=== PATIENT | male | born 1965 | race Caucasian/White ===

== ENCOUNTER 2023-09-26 14:19 | Outpatient (CLI) | payer OTHER, SELFPAY ==
--- NOTE | 2023-09-26 15:00 | CRLHL7_ITS ---
For Patients: As a result of the Century Cures Act, medical imaging exams and procedure reports are released immediately into your electronic medical record. You may view this report before your referring provider. If you have questions, please contact your health care provider. Indication: INTRA ABDOMINAL AND PELVIC SWELLING, LEFT GROIN MASS Technique: CT Abdomen/Pelvis w/ 90cc [id number] Please note that all CT scans at this facility use dose modulation, iterative reconstruction, and/or weight-based dosing when appropriate to reduce radiation dose to as low as reasonably achievable. Comparison: None Findings: No pleural effusion. No free intraperitoneal air. Small intrahepatic cyst left hepatic lobe measuring 8 millimeters. Possible faint nodule in the right middle lobe measuring 3 millimeters on the 1st cut. Spleen normal. Incidental splenule. Pancreas is unremarkable. Adrenal glands are normal. Small renal cysts right kidney measuring up to 1.5 cm. No hydronephrosis. Bladder normal. Sigmoid diverticulosis. No diverticulitis. No inflammatory changes. No bowel obstruction or free air. No free fluid or abscess. The appendix is normal. Normal size retroperitoneal and mesenteric lymph nodes. Circumscribed mass in the left inguinal region measuring 5.2 x 3.5 cm. Mildly enlarged left external iliac lymph node measures just under 1 cm. Additional subcentimeter left pelvic sidewall lymph node is present. Degenerative changes lumbar spine. No vertebral body compression fracture or pars defect. Impression: Circumscribed mass within the left inguinal soft tissues measuring 5.2 cm. Ultrasound-guided core needle biopsy recommended. Additional smaller adjacent lymph nodes are present extending along the left external iliac chain and left pelvic sidewall. Please note that all CT scans at this facility use dose modulation, iterative reconstruction, and/or weight-based dosing when appropriate to reduce radiation dose to as low as reasonably achievable. Dictated by Eddi Mcguire MD @ 09/27/2023 2:58:33 PM (Electronically Signed)
== END 2023-09-26 14:20 | disposition home or self-care (01) ==
PROVIDERS: Visit Provider Surgery
DX: R19.09 Other intra-abdominal and pelvic swelling, mass and lump (principal)
CPT/HCPCS: 74177; Q9967

== ENCOUNTER 2023-10-16 08:57 | Outpatient (CLI) | payer OTHER, SELFPAY ==
--- NOTE | 2023-10-16 09:15 | CRLHL7_ITS ---
For Patients: As a result of the Century Cures Act, medical imaging exams and procedure reports are released immediately into your electronic medical record. You may view this report before your referring provider. If you have questions, please contact your health care provider. ULTRASOUND-GUIDED LEFT INGUINAL SOFT TISSUE MASS BIOPSY CLINICAL HISTORY: Left inguinal lump COMPARISON STUDIES: CT 09/26/2023 TECHNIQUE: Real-time ultrasound with image documentation was used for targeting the left inguinal mass. Core biopsy specimens were obtained using an automated gun with a 18-gauge biopsy needle. CONSENT and TIME OUT: The procedure, risks, and alternatives were explained to the patient and a consent was signed. [place]oten Protocol was followed including pre-procedure verification that relevant information/documentation was available, reviewed and properly matched to the patient; consent accurate and complete; and equipment and supplies available. Time Out was conducted just prior to starting procedure to verify the four required elements: patient identity, correct side/site marked (if applicable), procedure, relevant images/results properly labeled and displayed (if applicable). PROCEDURE: The patient was positioned supine on the ultrasound table. The left inguinal region was prepped with ChloraPrep. 7 cc of 1 percent lidocaine used for local anesthesia. Core samples were obtained. The specimens were placed in 10% formalin and sent to the pathology department. Pressure was held on the biopsy site until all bleeding subsided. The skin incision was closed with Steri-Strips. LATERALITY: Left inguinal soft tissues. LESION: Circumscribed hypoechoic mass measuring 5.2 cm. SUSPICION FOR MALIGNANCY: Lymphoma versus granulomatous infection NUMBER OF SAMPLES: 5 IMPRESSION: Ultrasound-guided left inguinal soft tissue mass biopsy. Dictated by Eddi Mcguire MD @ 10/16/2023 11:34:29 AM (Electronically Signed)
== END 2023-10-16 08:58 | disposition home or self-care (01) ==
LOC: US 08:59
PROVIDERS: Visit Provider Surgery
DX: R19.09 Other intra-abdominal and pelvic swelling, mass and lump (principal); C85.15 Unspecified B-cell lymphoma, lymph nodes of inguinal region and lower limb
CPT/HCPCS: 20206; 76942

== ENCOUNTER 2023-10-25 13:58 | Outpatient (CLI) | payer OTHER, SELFPAY | END 2023-10-25 13:59 | disposition home or self-care (01) | PROVIDERS: PCP Nurse Practitioner Family; Visit Provider Nurse Practitioner Family | DX: Z01.818 Encounter for other preprocedural examination (principal) | CPT/HCPCS: 80053; 83615; 85025 ==

== ENCOUNTER 2023-10-25 15:10 | Outpatient (CLI) | payer OTHER, SELFPAY ==
--- NOTE | 2023-10-25 16:00 | CRLHL7_ITS ---
For Patients: As a result of the Century Cures Act, medical imaging exams and procedure reports are released immediately into your electronic medical record. You may view this report before your referring provider. If you have questions, please contact your health care provider. INDICATION: Leg pain and swelling. TECHNIQUE: Ultrasound venous duplex lower right extremity. Compression venous exam was performed using schaefer-scale, color Doppler, and spectral Doppler analysis. COMPARISON: None. FINDINGS: Deep veins: Sonographic imaging demonstrates the right common femoral, deep femoral, superficial femoral, popliteal, posterior tibial, peroneal and the contralateral left common femoral veins to be fully compressible with normal color Doppler blood flow. Superficial veins: Greater saphenous vein is fully compressible. No popliteal cyst. IMPRESSION: Normal right lower extremity venous ultrasound, no sign of deep venous thrombosis. Dictated by Jagjit Moya MD @ 10/25/2023 5:41:45 PM (Electronically Signed)
== END 2023-10-25 15:11 | disposition home or self-care (01) ==
LOC: US 15:11
PROVIDERS: PCP Nurse Practitioner Family; Visit Provider Surgery
DX: M79.604 Pain in right leg (principal); R22.41 Localized swelling, mass and lump, right lower limb
CPT/HCPCS: 80053; 83615; 85025; 93971

== ENCOUNTER 2023-10-28 08:10 | Day surgery (SDC) | payer OTHER, SELFPAY ==
[2023-10-28] MEDS: LACTATED RINGERS 1000 ML 1,000 ML 100 ML IV (08:25)
[2023-10-28 08:29] VITALS: BP 134/96; PULSE 80; RESP 16; TEMP 36.6; BMI 28.0
[2023-10-28] MEDS: SODIUM CHLORIDE 0.9 % (FLUSH) 10 ML SYRINGE IVF (08:45)
--- NOTE | 2023-10-28 10:18 | W.PM.H&PU ---
History & Physical Update History & Physical Update H&P Reviewed and patient assessed: No changes noted
[2023-10-28] MEDS: CEFAZOLIN 2 GM INJ IVP (10:32)
[2023-10-28] MEDS: BUPIVACAINE 0.25% 30 ML 20 ML INJECTION (11:03)
--- NOTE | 2023-10-28 11:52 | PM.GSPRC ---
Operative Note Date of procedure: 10/28/23 Pre-op diagnosis: 1. Enlarged left inguinal lymphadenopathy. 2. 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 Post-op diagnosis: Same Type of Procedure: 1. Excisional biopsy of enlarged left inguinal lymph node 8 x 5 cm. Indications: 58-year-old male presented to clinic with an enlarging left groin mass. He noticed it initially over 6 months ago. He denied pain or discomfort in lump initially. However, with time and during his workup he started to have aching on his left flank. Patient also described discomfort and weird sensation radiating to his anterior thigh when he palpated the lump. On clinical exam in the left inguinal canal there was a 8 x 4 cm firm avoid mass that was not very mobile. This was not reducible and was not likely to be an inguinal hernia. With the patient standing up and doing Valsalva there was no left inguinal hernia palpated through the scrotum. Patient was then referred for CT scan that showed an enlarged left inguinal mass that is most likely a lymph node. This was fairly superficial in the tissues. Mildly enlarged other lymph nodes were noted but those were less than 1 cm. A core needle biopsy was then performed that showed that this lymph node most likely is low-grade B-cell lymphoma. However, pathology did not have enough specimen for additional testing. Excision of biopsy of this lymph node was then recommended. The procedure was discussed in detail. The risks associated procedure including infection, bleeding, seroma, and nerve injury and nerve pain were all discussed with the patient, and he agreed to proceed. Procedure Description: After discussing the risks and benefits of the procedure, the patient signed informed consent.? The operative site was marked and the patient was brought to the operating room and placed on the operating table in supine position.? Care was taken to pad the patient's pressure points.?? The patient was then sedated by anesthesia.?? The operative site was then prepped and draped in the usual sterile fashion.? A time-out was then performed. Local anesthetic was injected at the surgical site. An oblique skin incision was made over the palpable mass over the left inguinal canal. Subcutaneous fat was divided with cautery. Was frequent palpation of the mass soft tissues around the mass were mobilized with cautery. It was difficult to tell an enlarged lymphatic from Radha's fascia, and therefore multiple vascular clips were placed to avoid lymphocele. This lymph node was superficial to the external oblique fascia. Throughout the case hemostasis was achieved with cautery, vascular clips, and Vicryl ties. When the lymph node was removed, it was measuring 8 x 5 cm. The lymph node was split into 2 pieces, 2 3 and 1/3rd and placed in 2 separate jars in saline for immediate delivery to pathology with a director of operations home health. Surgical site was then irrigated with normal saline. Additional local anesthetic was injected at the surgical site. Subcutaneous fat was then reapproximated with interrupted 2-0 Vicryl sutures. The dermis was closed with interrupted 3-0 Vicryl sutures. The skin was closed with a running 4-0 Monocryl stitch. Steri-Strips and sterile pressure dressing were placed over the incision. ? The patient was then woken and transported to the recovery area in stable condition. ? The patient tolerated the procedure well. Findings: Enlarged firm to palpation lymph node 8 x 5 cm. Anesthesia: MAC and local Surgeon: Vianca Jernigan MD Estimated blood loss (mL): 5 Additional Specimen Information: 1. Left inguinal enlarged lymph node divided into 2 parts and placed in 2 separate jars submerged in normal saline. Condition: stable Disposition: same day
[2023-10-28 11:55] VITALS: BP 103/66; PULSE 79; RESP 16; TEMP 37.1; O2SAT 98
[2023-10-28 12:00] VITALS: BP 97/71; PULSE 79; RESP 16; O2SAT 98
--- NOTE | 2023-10-28 12:00 | W.ANESCHARGE ---
Anesthesia Charges Start Date/Time Anesthesia Start Date: 10/28/23 Anesthesia Start Time: 10:16 Stop Date/Time Anesthesia Stop Date: 10/28/23 Anesthesia Stop Time: 11:57
[2023-10-28 12:15] VITALS: BP 116/80; PULSE 67; RESP 16; O2SAT 97
[2023-10-28 12:30] VITALS: BP 127/88; PULSE 68; RESP 16; O2SAT 97
[2023-10-28 12:45] VITALS: BP 125/80; PULSE 66; RESP 16; O2SAT 97
== END 2023-10-28 13:21 | disposition home or self-care (01) ==
PROVIDERS: PCP Nurse Practitioner Family; Visit Provider Surgery
PROC: (CPT 38500; principal; 2023-10-28 10:15)
DX: C85.15 Unspecified B-cell lymphoma, lymph nodes of inguinal region and lower limb (principal)
CPT/HCPCS: 38500; 00400; 81305; 88184; 88185; 88239; 88264; 88271; 88275; 88307; 88341; 88342; 88360; J0665; J0690; J1100; J2405; J2704; J3010; J7120

== ENCOUNTER 2023-11-18 11:16 | Outpatient (CLI) | payer OTHER, SELFPAY ==
--- OUTSIDE RECORDS SUMMARY | 2023-11-18 11:18 | XMS_ITS | Clinical Summary ---
Author Name Unknown Organization [facility] Address [place], [place] [address] Care Team Providers Care Tapper Operator Name Role Phone Pcp, No Primary Care Provider Unavailabl e Allergies Active Allergy Reactions Criticality Noted Date Comments Penicillins *Unknown - Childhood Rxn 10/01/2011 Medications No known medications Active Problems No known active problems Encounters Date Type Department Care Team Description 10/28/2023 Lab Requisition [facility] [phone] Vianca Jernigan MD 10/28/2023 Lab Requisition [facility] [phone] Vianca Jernigan MD 10/16/2023 Lab Requisition [facility] [phone] Vianca Jernigan MD from Last 3 Months Immunizations Name Administration Dates Next Due MMR 11/24/2014 Family History Medical History Relation Name Comments Cancer Father melanoma Hyperlipidemia Mother Relation Name Status Comments Father Mother Social History Tobacco Use Types Packs/Day Years Used Date Smoking Tobacco: Never Smokeless Tobacco: Never Alcohol Use Standard Drinks/Week Comments Not Asked 0 (1 standard drink = 0.6 oz pur e alcohol) Sex and Gender Information Value Date Recorded Sex Assigned at Not on file Gender Identity Not on file Sexual Orientation Not on file Obstetrics History Last Filed Vital Signs Vital Sign Reading Time Taken Comments Blood Pressure 122/82 10/01/2011 8:57 AM ASIC ENGINEER Pulse 82 10/01/2011 8:57 AM ASIC ENGINEER Temperature - - Respiratory Rate - - Oxygen Saturation - - Inhaled Oxygen Concentration - - Weight 73.6 kg (162 lb 3.2 oz) 10/01/2011 8:57 A M ASIC ENGINEER Height 176.5 cm (5' 9.5) 10/01/2011 8:57 AM ASIC ENGINEER Body Mass Index 23.61 10/01/2011 8:57 AM ASIC ENGINEER Plan of Treatment Health Maintenance Due Date Last Done Comments COVID-19 vaccine series (#1) 1966 Tdap 1977 Depression screening for age 12+ 1978 HIV for age 15-65 1981 BMI (ht and wt on same day) for age 18+ 1984 Hepatitis C screening for ag e 18-79 1984 Tetanus booster 1986 Colonoscopy through age 75 2011 Zoster (shingles) series for age 50+ (1 of 2) 2016 Lipids for age 45-75 10/01/2016 10/01/2011, 12/02/2006 Influenza for age 50-64 06/21/2023 Pneumococcal series for age 6-64 Aged Out No longer eligible b ased on patient's age to complete this topic Procedures Procedure Name Priority Date/Time Associated Diagnosis Comments LAB TRACKING EVENT Routine 10/28/2023 11 :34 AM ASIC ENGINEER PATH TISSUE EXAM Routine 10/28/2023 11:3 4 AM ASIC ENGINEER CHROM TECH 2 Routine 10/28/2023 11:34 AM ASIC ENGINEER MYC/IGH/CEP8 Routine 10/28/2023 11:34 AM ASIC ENGINEER CHROM TECH 1 Routine 10/28/2023 11:34 AM ASIC ENGINEER MSO AP SEND-OUT Routine 10/28/2023 11:34 AM ASIC ENGINEER PCB Routine 10/28/2023 11:34 AM ASIC ENGINEER OB Routine 10/28/2023 11:34 AM ASIC ENGINEER MT WETLAB Routine 10/28/2023 11:34 AM ASIC ENGINEER MT/LN CHROM Routine 10/28/2023 11:34 AM ASIC ENGINEER LAB TRACKING EVENT Routine 10/16/2023 10 :30 AM ASIC ENGINEER PATH TISSUE EXAM Routine 10/16/2023 10:3 0 AM ASIC ENGINEER from Last 3 Months Results * MYC/IGH/CEP8 (10/28/2023 11:34 AM ASIC ENGINEER) Other SWAB OF GROIN / Unknown 10/28/2023 11:34 AM ASIC ENGINEER 10/29/2023 11:04 AM ASIC ENGINEER Vianca Jernigan MD [facility] [address] [place] [address], [place] * MT/LN CHROM (10/28/2023 11:34 AM ASIC ENGINEER) Other SWAB OF GROIN / Unknown 10/28/2023 11:34 AM ASIC ENGINEER 10/29/2023 11:04 AM ASIC ENGINEER Vianca Jernigan MD LABORATORY Performing Organization Address City/[facility] Co de Phone Number [facility] [address] [place] [phone], [place] * MT WETLAB (10/28/2023 11:34 AM ASIC ENGINEER) Other [place] [place] / Unknown 10/28/2023 11:34 AM ASIC ENGINEER 10/29/2023 11:04 AM ASIC ENGINEER Vianca Jernigan MD LABORATORY Performing Organization Address [facility] Co de Phone Number [facility] [address] [place] [phone], [place] * PCB (10/28/2023 11:34 AM ASIC ENGINEER) Other SWAB OF GROIN / Unknown 10/28/2023 11:34 AM ASIC ENGINEER 10/29/2023 11:04 AM ASIC ENGINEER Vianca Jernigan MD LABORATORY Performing Organization Address [facility] Co de Phone Number [facility] [address] [place] [phone], [place] * OB (10/28/2023 11:34 AM ASIC ENGINEER) Other SWAB OF GROIN / Unknown 10/28/2023 11:34 AM ASIC ENGINEER 10/29/2023 11:04 AM ASIC ENGINEER Vianca Jernigan MD LABORATORY Performing Organization Address [facility] Co de Phone Number [facility] [address] [place] [address], [place] * CHROM TECH 2 (10/28/2023 11:34 AM ASIC ENGINEER) Other SWAB OF GROIN / Unknown 10/28/2023 11:34 AM ASIC ENGINEER 10/29/2023 11:04 AM ASIC ENGINEER Vianca Jernigan MD LABORATORY Performing Organization Address City/[facility] Co de Phone Number [facility] [employer] [address] [place] [address], [place] * CHROM TECH 1 (10/28/2023 11:34 AM ASIC ENGINEER) Other SWAB OF GROIN / Unknown 10/28/2023 11:34 AM ASIC ENGINEER 10/29/2023 11:04 AM ASIC ENGINEER Vianca Jernigan MD LABORATORY Performing Organization Address City/[facility] Co de Phone Number [facility] [address] [place] [address], [place] * LAB TRACKING EVENT (10/28/2023 11:34 AM ASIC ENGINEER) Only the most recent of2 resultswithin the time period is included. Other (Other) Client Collect / Unknown 10/28/2023 11:34 AM ASIC ENGINEER 10/28/2023 1:03 PM ASIC ENGINEER Vianca Jernigan MD LAB BILL ONLY Performing Organization Address [facility] de Phone Number [facility] [address] [place] [address], [place] * MSO AP SEND-OUT (10/28/2023 11:34 AM ASIC ENGINEER) Other SWAB OF GROIN / Unknown 10/28/2023 11:34 AM ASIC ENGINEER 11/01/2023 9:32 AM ASIC ENGINEER Vianca Jernigan MD LABORATORY Performing Organization Address [facility] Co de Phone Number [facility] [employer] [facility] [address] [place] [address], [place] * PATH TISSUE EXAM (10/28/2023 11:34 AM ASIC ENGINEER) Only the most recent of2 resultswithin the time period is included. Case Report Pathology Report ?Case: [id number] ? Authorizing Provider: ??Vianca Jernigan MD ?Collected: ? 10/28/2023 1134 ? Ordering Location: ? [facility] ?Received: ?10/28/2023 1417 ? Pathologist: ? Dino Rivas, ? MD ? Specimen: ?Groin, Left groin mass ? 11/07/2023 8:30 AM [employer] [facility] Amendment 11/07/2023-The tissue was submitted to [facility] for ancillary testing ([facility]PLFX). Please see diagnosis and comment. 11/07/2023 8:30 AM ASIC ENGINEER [employer] [facility] Final Diagnosis A) LYMPH NODE, LEFT INGUINAL, EXCISIONAL BIOPSY: 1. 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 Cytogenetic chromosome studies pending, appended results to follow 3. MYD88 L265P mutation analysis is NEGATIVE; see attached report for details 4. See comment 11/07/2023 8:30 AM ASIC ENGINEER [employer] Amendment electronically signed by Osmar Pate MD on 11/07/2023 at 8:30 AM Comment The findings are essentially identical to those seen in the recent left inguinal mass needle core biopsy ([id number], 10/16/2023) and appear characteristic of a low-grade B-cell lymphoma with plasmacytic differentiation most compatible with justine marginal zone lymphoma. There is no evidence of large cell transformation. The differential diagnosis also included lymphoplasmacytic lymphoma, which can show considerable morphologic and immunophenotypic overlap with marginal zone lymphoma, but less often involves lymph nodes. Molecular testing for MYD88 L265P mutation was performed at [facility] and is negative. Given that the vast majority of cases of lymphoplasmacytic lymphoma demonstrate a MYD88 mutation, the findings are most consistent with justine marginal zone lymphoma. Clinical correlation is recommended. 11/07/2023 8:30 AM ASIC ENGINEER [employer] Clinical Information The patient is a 58-year-old male with superficial solitary left inguinal mass and recent needle biopsy showing low-grade B-cell lymphoma with features most compatible with marginal zone lymphoma ([id number], 10/16/2023). Excisional biopsy of this mass is performed . 11/07/2023 8:30 AM ASIC ENGINEER [employer] Gross Description A) Received fresh (in 2 containers) labeled with the patient's name and left groin node, are 2 portions of lymph node tissue which reapproximate to measure 7.8 x 5.3 x 3.7 cm in greatest dimension. There is a small amount of associated fibrofatty tissue on the outer surface of the portions of lymph node. Serial sectioning reveals homogeneous fleshy prater cut surfaces throughout. Four unstained touch imprints are made (sent to cytogenetics). Portions of fresh tissue are placed in vials of RPMI fixative and sent to flow cytometry, molecular and cytogenetics (all held). Web Site Project Manager sections are submitted as follows: 1-4. ??Sections of lymph node tissue, B-plus fixative 5-8. ??Sections of lymph node tissue, formalin fixative Time and date in formalin: 1440 on 10/28/2023 TRB 10/28/2023 11/07/2023 8:30 AM [facility] Microscopic Description The final diagnosis is based on microscopic examination of appropriate sections of all specimens. Immunostains are performed on block A3 with the following results in abnormal lymphoid cell infiltrate: CD3: ??Negative ?? CD5: ??Negative CD10: Negative CD20: Strongly positive CD21: Weak variable staining of cells with frequent disrupted [facility] meshworks CD23: Strongly positive CD43: Weak/equivocal BCL1: Negative BCL2: Positive BCL6: Negative (focally highlights residual germinal centers) Ki67: 10-20% (by manual morphometry) 11/07/2023 8:30 AM [facility] [employer] [facility] Flow Cytometry Summary B Cell Leukemia/Lymphoma panel: Interpretation: Flow cytometry discloses a monotypic kappa B-cell cohort positive for CD19, CD20, CD22, CD23, CD38(dim) and CD79b(dim). The B cells are negative for CD5 and CD10. This immunophenotype is consistent with a B-cell lymphoma, but is otherwise nonspecific. Clinical indication for flow cytometry: Characterize B-cell lymphoma. A monotypic B cell cohort is detected that comprises approximately 70.5% of total viable nucleated events as defined by light scatter criteria. Summary of B cell phenotype Brightly positive markers: CD45/CD19 Moderately positive markers: KAPPA/CD20/CD22/CD2 3 Dimly positive markers: CD79b/CD38 Trace positive markers: Negative markers: CD2/CD3/CD103/LAMBD A/CD5/CD10/CD200/CD 43 Quality Assessment Viability (7-AAD): 84% Monotypic B cell events: 6559 Nucleated cells analyzed: 9305 Limit of detection (LOD): 0.2% These results and cytograms have been verified by Dr. Rivas. This test was developed and its performance characteristics verified by [employer]. It has not been cleared or approved by the [place] Food and Drug Administration. This test is used for clinical purposes and should not be regarded as investigational or for research. Immunostains were used on this case in conjunction with flow cytometry in order to address ambiguous or inconclusive findings and/or to provide prognostic information. The results of both modalities were coordinated with H&E findings during diagnostic evaluation. Analytic Flow Tech: Jannette Villalpando, 10/29/2023 12:52 PM Verifying Flow Tech: Coni Fay, 10/29/2023 2:20 PM 11/07/2023 8:30 AM ASIC ENGINEER [facility] Cytogenetics Summary Cytogenetic testing has been ordered and will be reported separately. 11/07/2023 8:30 AM ASIC ENGINEER [facility] Additional Information Interpreted at [facility] - [address], [place] [address] 11/07/2023 8:30 AM ASIC ENGINEER [facility] Other [facility] / Unknown 10/28/2023 11:34 AM ASIC ENGINEER 10/28/2023 2:17 PM ASIC ENGINEER Vianca Jernigan MD PATHOLOGY/CYTOLOGY [facility] [address] [place] [address], [place] from Last 3 Months Care Teams Tapper Operator Relationship Specialty Start Date End Date Pcp, No . PCP - General 05/01/23
--- OUTSIDE RECORDS SUMMARY | 2023-11-18 11:18 | XMS_ITS | Clinical Summary ---
Author Name Unknown Organization [facility] Address [id number], [place] [address] Care Team Providers Care Molten Iron Pourer Name Role Phone Unavailable Primary Care Provider Unavailabl e Source Comments You are receiving this document as you are listed as the primary care provider,follow-up provider, or the patient has been referred to you for consultation.This is in compliance with the Medicare andMedicaid EHR Incentive Program,which states Providers who transition their patient to another setting of careor provider of care or refers their patient to another provider of care shouldprovide summary care record for each transition of care or referral. [facility] Allerg[facility] Active Allergy Reactions Criticality Noted Date Comments Penicillins 06/25/2019 Medications No known medications Social History Tobacco Use Types Packs/Day Years Used Date Smoking Tobacco: Never Assessed Sex and Gender Information Value Date Recorded Sex Assigned at Not on file Gender Identity Not on file Sexual Orientation Not on file Plan of Treatment Health Maintenance Due Date Last Done Comments Colon Cancer Screening Plan Due 1966 Hep C Screening (Preventive Services) 1966 HepB (1) 1966 PSA Screening Discussion 1966 COVID-19 Vaccine (#1) 1966 HIV Screening (Preventive Services) 1982 Adult Preventive Visit 1984 Cholesterol 2001 Zoster/Shingles (1 of 2) 2016 Influenza (#1) 2023 07/04/2020, 07/22, 07/22/2018, Additional history exists DTaP/Tdap/Td (2 - Tdap) 07/22/2028 07/22/2018, 09/04 HepA Aged Out 03/06/2006, 09/20, 09/04/2005 No longer eligible based on patient's age to complete this topic Hib Aged Out No longer eligi ble based on patient's age to complete this topic IPV (Polio) Aged Out No longer eligi ble based on patient's age to complete this topic MCV4 Aged Out No longer eligi ble based on patient's age to complete this topic Pneumococcal Aged Out No longer eligi ble based on patient's age to complete this topic
[2023-11-18 11:35] VITALS: BP 149/92; PULSE 77; RESP 16; O2SAT 100; BMI 26.1
--- NOTE | 2023-11-18 11:48 | W.ANESCHARGE ---
Anesthesia Charges Start Date/Time Anesthesia Start Date: 11/18/23 Anesthesia Start Time: 12:14 Stop Date/Time Anesthesia Stop Date: 11/18/23 Anesthesia Stop Time: 12:31
[2023-11-18 12:32] VITALS: BP 126/78; PULSE 63; RESP 18; O2SAT 97
--- NOTE | 2023-11-18 12:36 | W.ANESCHARGE ---
Anesthesia Charges Start Date/Time Anesthesia Start Date: 11/18/23 Anesthesia Start Time: 12:14 Stop Date/Time Anesthesia Stop Date: 11/18/23 Anesthesia Stop Time: 12:31
[2023-11-18 12:38] VITALS: BP 129/83; PULSE 59; RESP 18; O2SAT 96
[2023-11-18 12:41] LABS: Basophils Absolute Auto 0.03 K/uL (0.00-0.30); Basophils Percent Auto 0.4 % (0.0-3.0); Eosinophils Absolute Auto 0.25 K/uL (0.00-0.50); Eosinophils Percent Auto 3.4 % (0.0-7.0); Hematocrit 44.5 % (37.0-53.0); Hemoglobin* 14.8 gm/dL (13.5-17.5); Immature Granulocytes Abs Auto 0.01 K/uL (0.00-0.30); Immature Granulocytes Pct Auto 0.1 %; Immature Reticulocyte Fraction 7.2 % (2.3-13.4); Lymphocytes Absolute Auto 2.18 K/uL (0.90-2.90); Lymphocytes Percent Auto 29.7 % (20-44); Mean Corpuscular HGB Conc 33 gm/dL (32-36); Mean Corpuscular Hemoglobin 28 pg (26-34); Mean Corpuscular Volume 84 fL (80-100); Monocytes Percent Auto 8.2 % (0.0-11.0); Neutrophils Absolute Auto 4.26 K/uL (1.7-7.0); Neutrophils Percent Auto 58.2 % (42.0-72.0); Platelet Count* 253 K/uL (140-440); Red Blood Count 5.29 m/uL (4.30-5.90); Reticulocyte Hemoglobin Equivi 29.9 pg (29.0-35.0); Reticulocyte Percent 1.2 % (0.5-2.0); Reticulocytes Absolute 0.06 # (0.03-0.08); White Blood Count* 7.33 K/uL (4.50-11.00)
[2023-11-18 12:44] LABS: Slide Review Reflex No
== END 2023-11-18 13:04 | disposition home or self-care (01) ==
PROVIDERS: PCP Nurse Practitioner Family; Visit Provider Internal Medicine Hematology & Oncology
DX: C85.10 Unspecified B-cell lymphoma, unspecified site (principal)
CPT/HCPCS: 01112; 36415; 38222; 85025; 85045; 88184; 88185; 88305; 88311; 88313; 88341; 88342; 88360; J1644; J2001; J2704

== ENCOUNTER 2023-11-21 14:31 | Emergency (ER) | payer OTHER, SELFPAY ==
[2023-11-21 14:36] VITALS: BP 138/94; PULSE 89; RESP 18; TEMP 36.4; O2SAT 100; BMI 26.3
--- NOTE | 2023-11-21 14:45 | ED.ABDPAIN ---
HPI - Abdominal Pain General Time Seen by Provider: 14:48 Date Seen: 11/21/23 Chief Complaint: Abdominal Pain Stated Complaint: Pain in R side groin post biopsy Time Seen by Provider: 11/21/23 14:44 Source: patient and RN notes reviewed Mode of arrival: ambulatory Limitations: no limitations History of Present Illness HPI narrative: Esau is a very pleasant 58-year-old gentleman with recent bone biopsy on SaturdayNovember 18 for B-cell lymphoma who comes to the emergency room today for onset of right lower quadrant pain. Over the past few hours the pain has been steady and he has been unable to find a good position of comfort. He describes the pain so severe that at times he almost felt like he had a delirium. He has not experienced this in the past. No position makes him feel better. The pain does radiate into his groin and to a lesser extent into his testicle. He has not taken anything for pain at this point. He denies fever chills, change in bowel movement, blood in urine or painful urination. The bone biopsy went without incident. He notes that he has no pain in his lower back where the biopsy was done. He did have a lymph node biopsy in his left groin many weeks ago and this has been healing nicely. No drainage from this area. Related Data Previous Rx's Medication Instructions Recorded hydrocodone 5 mg-acetaminophen 325 See Rx Instructions .Route 11/21/23 mg tablet .COMPLEX PRN pain #14 tabs ondansetron 4 mg disintegrating 4 mg PO Q8-12H PRN nausea and 11/21/23 tablet vomiting #10 tabs tamsulosin 0.4 mg capsule (Flomax) 0.4 mg PO DAILY #5 caps 11/21/23 Allergies Allergy/AdvReac Type Severity Reaction Status Date / Time Penicillins Allergy Verified 11/21/23 14:36 Review of Systems Status of ROS Reports: 10 or more systems reviewed and unremarkable except as noted in History and below Const Denies: fever or chills GI Reports: abdominal pain and nausea; Denies: vomiting, diarrhea, constipation or blood in stool Reports: genital pain; Denies: painful urination, urinary frequency, urinary urgency or blood in urine Musculo Denies: back pain PFSH PFSH Surgical History Hx of excision of mass ?Z98.890 - Other specified postprocedural states (ICD-10) History of root canal procedure ?Z98.890 - Other specified postprocedural states (ICD-10) H/O left wrist surgery ?Z98.890 - Other specified postprocedural states (ICD-10) Family History Paternal Grandfather Stroke, Onset Age: 92 Skin cancer Father Skin cancer High blood pressure Atrial fibrillation Social History Narrative: Patient is a professor at [employer]. . No children. No formal exercise. Non smoker. No alcohol. No illicit drugs. Smoking Status: Never smoker How often do you have a drink containing alcohol: never AUDIT-C Alcohol total score: 0 Non-prescribed substance use: denies use Caffeine: Yes Exam Narrative: Exam Narrative: Patient is alert and oriented. He does appear to be in mild distress and is noted to be having a hard time finding a position of comfort. External ears eyes nose clear. Neck is supple without lymphadenopathy. Heart with regular rate and rhythm and lungs are clear bilaterally. Abdomen shows right lower quadrant tenderness. There does appear to be some rebound noted. No pain with straight leg raise tapping of the heel or internal or external rotation of the hip. There is somewhat of a fullness in the right a suprapubic area but no obvious localized bulging to suggest hernia. Examination of the scar on the left groin shows it to be well healed with some residual fullness in the midline. Lower extremities without edema. Const: Vital Signs, click to edit/add: Vital Signs - 24 hr 11/21/23 14:36 11/21/23 17:27 11/21/23 17:30 Temperature 97.6 F 97.6 F Pulse Rate 78 Pulse Rate [Right Pulse Oximeter] 89 89 Respiratory Rate 18 18 14 Blood Pressure 161/103 H Blood Pressure [Ri ght Upper Arm] 138/94 H 138/94 H Pulse Oximetry 100 98 Oxygen Delivery Me thod Room Air Documenting provider has reviewed patient's vital signs: yes Course Course ED Course: Differential diagnosis includes but is not limited to inguinal hernia, torsion, appendicitis, diverticulitis, ureteral colic with nephrolithiasis, will place IV, give morphine 4 mg as well as Zofran 4 mg. 500 mL normal saline. Will check labs to include CBC, comprehensive panel, CRP, urinalysis. This gentleman will likely need CT but at this time will await urinalysis to decide if this will be done with contrast or without. Reevaluation(s) Reevaluation #1: Patient noted only modest improvement with morphine. I would like to avoid Toradol as he has recently had a biopsy and therefore will order Dilaudid 0.5 mg IV. Urinalysis did show hematuria and thus the noncontrast abdominal CT has been ordered. Reevaluation #2: Patient looking much better stating he is feeling much better after Dilaudid. Still awaiting official radiological read but I do know what appears to be a stone in the distal right ureter. I have asked patient to strain urine if he needs to use the restroom while here. Vital Signs Vital signs: Initial Vital Signs Temperature 97.6 F 11/21/23 14:36 Temperature Source Temporal Artery Scan 11/21/23 14:36 Pulse Rate 89 11/21/23 14:36 Pulse Rhythm Regular 11/21/23 14:36 Respiratory Rate 18 11/21/23 14:36 Blood Pressure 138/94 H 11/21/23 14:36 Blood Pressure Mean 108 H 11/21/23 14:36 Blood Pressure Position Semi-Fowlers 11/21/23 14:36 Pulse Oximetry 100 11/21/23 14:36 Oxygen Delivery Method Room Air 11/21/23 14:36 Vital Signs Temperature 97.6 F 11/21/23 14:36 Pulse Rate 89 11/21/23 14:36 Respiratory Rate 18 11/21/23 14:36 Blood Pressure 138/94 H 11/21/23 14:36 Pulse Oximetry 100 11/21/23 14:36 Oxygen Delivery Method Room Air 11/21/23 14:36 Temperature 97.6 F 11/21/23 17:27 Pulse Rate 78 11/21/23 17:30 Respiratory Rate 14 11/21/23 17:30 Blood Pressure 161/103 H 11/21/23 17:30 Pulse Oximetry 98 11/21/23 17:30 Oxygen Delivery Method Room Air 11/21/23 14:36 Medications Administered Medications: Discontinued Medications Generic Name Dose Route Start Last Admin Trade Name Freq PRN Reason Stop Dose Admin Hydromorphone HCl 0.5 mg 11/21/23 15:38 11/21/23 15:52 Hydromorphone 0.5 Mg/0.5 Ml Inj IVP 11/21/23 15:39 0.5 mg ONCE ONE Administration Sodium Chloride 500 mls @ 500 mls/hr 11/21/23 14:57 11/21/23 15:03 0.9 % Sodium Chloride 500 Ml IV 11/21/23 15:56 500 mls/hr .Q1H ONE Administration Morphine Sulfate 4 mg 11/21/23 14:57 11/21/23 15:05 Morphine 4 Mg/Ml Inj IVP 11/21/23 14:58 4 mg ONCE ONE Administration Ondansetron HCl 4 mg 11/21/23 14:57 11/21/23 15:05 Ondansetron 2 Mg/Ml Inj IVP 11/21/23 14:58 4 mg ONCE ONE Administration MDM - Abdominal Pain MDM Narrative Medical decision making narrative: 1. Ureteral colic secondary to nephrolithiasis- Patient noted to have a 3 mm stone in the proximal ureter. This is causing mild hydronephrosis. Here received morphine4 mg and then Dilaudid 0.5 mg with pain relief. Patient will be sent home with [place] 5/325 1-2 tabs p.o. q.4-6 hours p.r.n.. Zofran as needed for nausea.Will also give 1st dose of Flomax here in the emergency room and encourage good fluids. Will have patient strain his urine. If he notes this stone this may be return to his primary clinic for analysis. If he has ongoing pain he will need to follow-up at the clinic for failure to pass stone and possibly see Urology. Patient will need to return to the ER for fever, vomiting, worsening symptoms. 2. B-cell lymphoma -status post biopsy. Biopsy site appears to be healing. 3. Disposition -home at this time. Return as needed. Medical Records Attestation: I reviewed the patient's medical records. Lab Data Attestation: I reviewed the patient's lab results. Labs: Lab Results 11/21/23 11/21/23 Range/Units 15:00 15:05 WBC 13.47 H (4.50-11.00) K/uL RBC 5.73 (4.30-5.90) m/uL Hgb 15.9 (13.5-17.5) gm/dL Hct 48.7 (37.0-53.0) % MCV 85 (80-100) fL MCH 28 (26-34) pg MCHC 33 (32-36) gm/dL RDW Coeff of Pravin 13.3 (11.5-15.5) % Plt Count 299 (140-440) K/uL Neut % (Auto) 86.2 H (42.0-72.0) % Lymph % (Auto) 9.0 L (20-44) % [place] % (Auto) 4.1 (0.0-11.0) % Eos % (Auto) 0.2 (0.0-7.0) % Baso % (Auto) 0.2 (0.0-3.0) % Neut # (Auto) 11.60 H (1.7-7.0) K/uL Lymph # (Auto) 1.20 (0.90-2.90) K/uL [place] # (Auto) 0.60 (0.00-0.90) K/UL Eos # (Auto) 0.00 (0.00-0.50) K/uL Baso # (Auto) 0.00 (0.00-0.30) K/uL Abs Immat Gran (auto) 0.00 (0.00-0.30) K/uL Imm/Tot Granulo (auto) 0.3 % Sodium 140 (135-149) mmol/L Potassium 4.3 (3.6-5.1) mmol/L Chloride 103 (96-114) mmol/L Carbon Dioxide 24 (20-32) mmol/L Anion Gap 13 (7-15) mEq/L BUN 16 (7-30) mg/dL Creatinine 1.0 (0.5-1.5) mg/dL Estimated Creat Clear 81.50 Estimated GFR 88 ml/min Glucose 128 H (60-115) mg/dL Calcium 9.5 (8.4-10.6) mg/dL Total Bilirubin 1.0 (0.1-1.5) mg/dL AST 39 H (12-35) U/L ALT 39 (4-50) U/L Alkaline Phosphatase 104 (40-150) U/L C-Reactive Protein 0.6 (0.5-1.0) mg/dL Total Protein 8.0 (6.0-8.3) g/dL Albumin 5.1 H (3.3-5.0) g/dL Urine Color Yellow (Yellow) Urine Appearance Cloudy A (Clear) Urine pH 5.5 (5.0-8.5) Ur Specific [place] 1.020 (1.000-1.030) Urine Protein Negative (Negative) Urine Glucose (UA) Negative (Negative) Urine Ketones Negative (Negative) Urine Blood 3+ A (Negative) Urine Nitrite Negative (Negative) Urine Bilirubin Negative (Negative) Urine Urobilinogen 0.2 (0.2-1.0) Ur Leukocyte Esterase Negative (Negative) Urine RBC 50-100 A (0-2) Urine WBC 0-2 (0-5) Ur Squamous Epith Cells None (None-Few) Urine Bacteria None (None) Imaging Data CT scan - abdomen: Attestation: I have reviewed the pertinent imaging results. My impression: By my read there appears to be a 3 mm stone in the distal right ureter. Mild hydronephrosis is noted on CT. Radiologist's impression: Lower chest: Unremarkable. Liver: Normal in size and attenuation. No suspicious masses. Gallbladder and bile ducts: No stones or inflammation. No biliary dilatation. Pancreas: Unremarkable. No mass or inflammation. Spleen: Normal in size. No masses. Adrenal glands: Normal in size. No nodules. Kidneys: A 3 mm stone in the proximal right ureter is causing mild hydronephrosis. No other stones. GI tract: Unremarkable. Normal in caliber. No sign of mass or inflammation. Normal appendix. Vasculature: Abdominal aorta is normal in caliber. Lymph nodes: No lymphadenopathy. Peritoneum/Abdominal Wall: Unremarkable. No sign of mass or infiltration. No free air or significant free fluid. Pelvis: Surgical clips surrounding an oval-shaped soft tissue mass in the left inguinal region. Pelvic structures otherwise unremarkable. Bones: Unremarkable for age. IMPRESSION: 3 mm stone in the proximal right ureter causing mild hydronephrosis. Discharge Plan Discharge Clinical Impression: Colic, ureteral, Kidney stone Patient Disposition: Home, Self-Care Condition: Improved Additional Instructions: You have a 3 mm kidney stone which stands a great chance of passing on its own. I would like you to strain your urine and if you should note a small stone pass you can take this to your primary doctor for analysis. There are no other kidney stones in the kidneys noted on the CT. There are some stones that you can prevent. Overall the prevention is actually good hydration. Zofran: This is an anti nausea medication that you should take if your feeling nauseated. Try to stay as hydrated as possible. [place]: This is a pain medication which is a combination of Tylenol and a narcotic called hydrocodone. Other names for this medication are Vicodin and Lortab. You may use this medication if needed for discomfort. Unfortunately, narcotics do cause constipation and so I would suggest starting on a stool softener such as Colace. Flomax: Flomax is a medication that relaxes smooth muscle -what your ureter is made of. The thought is if we can relax the ureter the stone will pass sooner. Take this medication daily as long as you are experiencing pain from the kidney stone. It is hard to say what type of time frame we are looking at for the passing of the stone. Some stones pass quickly and this could be gone in the next 12 hours, some stones last days and occasionally last more than a week. Given the size at 3 mm I suspect this stone will pass in the next 48 hours. If you are still experiencing discomfort on Saturday please follow-up at your clinic as you may need to see the urologist for stone removal. If you started experiencing continued vomiting in spite of Zofran use, fever, worsening symptoms please return to the emergency room for further evaluation. Prescriptions: New tamsulosin [Flomax] 0.4 mg capsule 0.4 mg PO DAILY Qty: 5 0RF hydrocodone-acetaminophen 5-325 mg tablet See Rx Instructions .ROUTE .COMPLEX PRN (Reason: pain) Qty: 14 0RF Rx Instructions: 1-2 tabs every 4-6 hours as needed for discomfort. ondansetron 4 mg tablet,disintegrating 4 mg PO Q8-12H PRN (Reason: nausea and vomiting) Qty: 10 0RF Follow Up/Referrals: Desiree Chacko APRN, CLERICAL PROOFREADER [Nurse Practitioner] - Stand Alone Forms: [facility] Inst[facility]
[2023-11-21] MEDS: 0.9 % SODIUM CHLORIDE 500 ML 500 ML IV (15:03)
[2023-11-21 15:05] LABS: Appearance Urine Cloudy (Clear); Bilirubin Urine Negative (Negative); Blood Urine 3+ (Negative); Color Urine Yellow (Yellow); Glucose Urine Negative (Negative); Ketones Urine Negative (Negative); Leukocyte Esterase Urine Negative (Negative); Nitrite Urine Negative (Negative); Protein Urine Negative (Negative); Urobilinogen Urine 0.2 (0.2-1.0); pH Urine 5.5 (5.0-8.5)
[2023-11-21] MEDS: ONDANSETRON 2 MG/ML inj 4 MG IVP (15:05)
[2023-11-21] MEDS: MORPHINE 4 MG/ML INJ IVP (15:05)
[2023-11-21 15:14] LABS: Basophils Percent Auto 0.2 % (0.0-3.0); Eosinophils Percent Auto 0.2 % (0.0-7.0); Hematocrit 48.7 % (37.0-53.0); Hemoglobin* 15.9 gm/dL (13.5-17.5); Immature Granulocytes Pct Auto 0.3 %; Mean Corpuscular HGB Conc 33 gm/dL (32-36); Mean Corpuscular Hemoglobin 28 pg (26-34); Mean Corpuscular Volume 85 fL (80-100); Monocytes Percent Auto 4.1 % (0.0-11.0); Neutrophils Percent Auto 86.2 % (42.0-72.0); Platelet Count* 299 K/uL (140-440); RDW Coefficient of Variation % 13.3 % (11.5-15.5); Red Blood Count 5.73 m/uL (4.30-5.90); White Blood Count* 13.47 K/uL (4.50-11.00)
--- OUTSIDE RECORDS SUMMARY | 2023-11-21 15:16 | XMS_ITS | Clinical Summary ---
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, No Primary Care Provider Unavailabl e Allergies Active Allergy Reactions Criticality Noted Date Comments Penicillins *Unknown - Childhood Rxn 10/01/2011 Medications No known medications Active Problems No known active problems Encounters Date Type Department Care Team Description 11/18/2023 Lab Requisition [facility] [phone] Danielle Sanchez MD 10/28/2023 Lab Requisition [facility] [phone] Vianca Jernigan MD 10/28/2023 Lab Requisition [facility] [phone] Vianca Jernigan MD 10/16/2023 Lab Requisition [facility] [phone] Vianca Jernigan MD from Last 3 Months [...] Comments Blood Pressure 122/82 10/01/2011 8:57 AM TECHNICAL SALES DIRECTOR Pulse 82 10/01/2011 8:57 AM TECHNICAL SALES DIRECTOR Temperature - - Respiratory Rate - - Oxygen Saturation - - Inhaled Oxygen Concentration - - Weight 73.6 kg (162 lb 3.2 oz) 10/01/2011 8:57 A M TECHNICAL SALES DIRECTOR Height 176.5 cm (5' 9.5) 10/01/2011 8:57 AM TECHNICAL SALES DIRECTOR Body Mass Index 23.61 10/01/2011 8:57 AM TECHNICAL SALES DIRECTOR Plan of Treatment Health Maintenance Due Date [...] Procedure Name Priority Date/Time Associated Diagnosis Comments BONE MARROW STUDY Routine 11/18/2023 12: 15 PM TECHNICAL SALES DIRECTOR BONE MARROW DIFFERENTIAL Routine 11/18/2023 12:15 PM TECHNICAL SALES DIRECTOR LAB TRACKING EVENT Routine 10/28/2023 11 :34 AM TECHNICAL SALES DIRECTOR PATH TISSUE EXAM Routine 10/28/2023 11:3 4 AM TECHNICAL SALES DIRECTOR CHROM TECH 2 Routine 10/28/2023 11:34 AM TECHNICAL SALES DIRECTOR MYC/IGH/CEP8 Routine 10/28/2023 11:34 AM TECHNICAL SALES DIRECTOR CHROM TECH 1 Routine 10/28/2023 11:34 AM TECHNICAL SALES DIRECTOR MSO AP SEND-OUT Routine 10/28/2023 11:34 AM TECHNICAL SALES DIRECTOR PCB Routine 10/28/2023 11:34 AM TECHNICAL SALES DIRECTOR OB Routine 10/28/2023 11:34 AM TECHNICAL SALES DIRECTOR MT WETLAB Routine 10/28/2023 11:34 AM TECHNICAL SALES DIRECTOR MT/LN CHROM Routine 10/28/2023 11:34 AM TECHNICAL SALES DIRECTOR LAB TRACKING EVENT Routine 10/16/2023 10 :30 AM TECHNICAL SALES DIRECTOR PATH TISSUE EXAM Routine 10/16/2023 10:3 0 AM TECHNICAL SALES DIRECTOR from Last 3 Months Results * BONE MARROW DIFFERENTIAL (11/18/2023 12:15 PM TECHNICAL SALES DIRECTOR) Bone Marrow (Bone Marrow Aspirate) 11/18/2023 12:15 PM TECHNICAL SALES DIRECTOR 11/19/2023 8:08 AM TECHNICAL SALES DIRECTOR Danielle Sanchez MD LABORATORY [facility]AL [facility]ORAT[facility] [address] [place] [address], * BONE MARROW STUDY (11/18/2023 12:15 PM TECHNICAL SALES DIRECTOR) Case Report Bone Marrow Pathology Report ?Case: [id number] ? Authorizing Provider: ??Danielle Sanchez MD ?Collected: ? 11/18/2023 1215 ? Ordering Location: ? [facility] ?Received: ?11/18/20232048 ? Pathologist: ? Cecelia Reyes MD ? Specimens: ?? A) - Bone Marrow Aspirate, right ? B) - Bone Marrow Aspirate (Heparinized), right ? C) - Bone Marrow Core Biopsy, right ? D) - Peripheral Blood ? 11/20/2023 4:38 PM TECHNICAL SALES DIRECTOR [facility] LABORAT[facility]-C ENTRAL LABORATORY Final Diagnosis BONE MARROW: 1. ??Negative for lymphoma 2. ??Normocellular bone marrow for age (50-60% cellular) with trilineage hematopoiesis 3. ??Adequate storage iron; adequate sideroblastic iron 4. ??Ancillary studies: ?a. ??Cytogenetics: Not performed ?b. 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 A staging bone marrow biopsy is performed. 11/20/2023 4:38 PM [facility]-C ENTRAL LABORATORY PROCEDURE A RIGHT lateral bone marrow biopsy and unilateral aspiration procedure is performed at [facility] on 11/18/23. ARTURO Sandoval performed the procedure using an 8 gauge manual needle. The ordering physician is Dr. Danielle Sanchez . The specimen is inked black. EKW 11/19/2023 ? 11/20/2023 4:38 PM TECHNICAL SALES DIRECTOR [facility] LABORATORY-C ENTRAL LABORATORY CBC and Differential HEMATOLOGY PARAMETERS Tested at: ??Central Laboratory ? RESULTS ??EXPECTED VALUES WBC: ? 7.3 ?4.5-25f6873/cum m ? RBC: ? 5.29 ? 4.30-5.90 mil/cumm HGB: ? 14.8 ? 13.5-17.5 gm/di ? HCT: ? 44.5 ? 37-53% ? MCV: ? 84.1 ? 80-100 fl ? NORMOCYTIC MCH: ? 28.0 ? 26-34 pg ? MCHC: ?33.3 ? 32-36 gm/dl ? NORMOCHROMIC RDW: ? 13.0 ? 11.5-15.5% ? PLT: ? 253 ?140-067a3675/uL ? Retic: ?? 1.22 ? 0.5-1.5% ? Differential ?Tested at: ??Central ?Absolute (%) ?Expected (%) ?(x10*9/L) ? (x10*9/L) Neutrophils: ?4.26 (58.1) ? 1.7-7.0 (42-72%) ? Lymphocytes: ?2.18 (29.7) ? 0.9-2.9 (20-44%) ?? Monocytes: ?0.60 (8.2) ? <0.9 (0-11%) ? Eosinophils: ?0.25 (3.4) ? <0.5 (0-2%) ? Basophils: ?0.03 (.4) ?<0.3 (<3.0%) ? Imm Grans: ?0.01 (.1) ?<0.3 (0-3%) ? (Metas, Myelos,Pros) 11/20/2023 4:38 PM TECHNICAL SALES DIRECTOR [facility] LABORAT[facility]-C ENTRAL LABORATORY Bone Marrow Differential Blasts: ?1.0 ? 0.2-1.5% ? Neutrophils & precursors: ??61.4 ?58.0-65.0% ? Eosinophils & precursors: ??4.2 ? 0.2-5.3% ? Basophils & precursors: ?0.4 ? 0.0-1.0% ? Erythroid precursors: ?15.8 ?18.0-24.0% ?DECREASED Lymphocytes: ? 11.0 ? 3.0-24.0% ? Monocytes: ? 5.8 ? 0.7-2.8% ?ELEVATED Plasma cells: ?0.4 ? 0.1-1.5% ? M:E Ratio: ? 61 : 16 11/20/2023 4:38 PM [facility]-C ENTRMS LABORATORY Microscopic Description SPECIMENS EXAMINED: Peripheral blood Aspirate direct and concentrate smears: ??Adequate Particle crush smears Touch imprints Clot section Bone core trephine sample (decalcified): ??Adequate, 1.7 cm Bone core and clot section color: Black PERIPHERAL BLOOD: No morphologic abnormalities. BONE MARROW ASPIRATE: Hematopoiesis: Normal trilineage hematopoiesis Lymphocytes: ?? Normal, not increased Plasma cells: ??Normal BONE MARROW CORE AND CLOT SECTION: Hematopoiesis: Normal trilineage hematopoiesis Lymphocytes: ?? Normal Plasma cells: ??Normal IRON STAINS (performed on clot sections, particle crush smears, concentrate smears, and F-PV slides): Storage iron, sideroblastic iron and ring sideroblasts evaluated; results included in diagnosis. 11/20/2023 4:38 PM [facility] Flow Cytometry Summary B Cell Screen panel: Interpretation: No monotypic B lymphocytes are detected. Clinical indication for flow cytometry: To evaluate for light chain restriction among B cells. Percent of Lymphs B cells: 5.7% T cells: 90.1% CD19+/[place]: 3.4% CD19+/Lambda: 2.2% [place]:Lambda ratio: 1.5 B lymphocytes in this analysis demonstrate normal qualitative expression of the following antigens: CD3, CD5, CD10, CD19, CD20, CD45, and [place] and Lambda surface light chains. Quality Assessment Viability (7-AAD): 83% Polytypic B cell events: 52 Nucleated cells analyzed: 10390 Limit of detection (LOD): 0.2% These results and cytograms have been verified by Dr. Reyes. This test was developed and its performance characteristics verified by [facility]. It has not been cleared or approved by the [place] Food and Drug Administration. This test is used for clinical purposes and should not be regarded as investigational or for research. Immunostains may have been used on this case in conjunction with flow cytometry in order to address ambiguous or inconclusive findings and/or to provide prognostic information. In the event immunostains were performed, results of both modalities were coordinated with H&E findings during diagnostic evaluation. Analytic Flow Tech: Kajal Lei, 11/19/2023 12:20 PM Verifying Flow Tech: Coni Fay, 11/19/2023 1:15 PM 11/20/2023 4:38 PM TECHNICAL SALES DIRECTOR [facility] LABORATORY- ENTRMS LABORATORY Other Testing Immunostains were performed on the bone core biopsy. CD3 (T cell marker): ??appropriate in number and distribution CD20 (B cell marker): Not increased CD138 (plasma cell marker): Not increased 11/20/2023 4:38 PM TECHNICAL SALES DIRECTOR [facility]- ENTRMS LABORATORY Additional Information Interpreted at [facility] Central Laboratory - [address] [facility] [address], [place] [address] 11/20/2023 4:38 PM TECHNICAL SALES DIRECTOR [facility]- ENTRAL LABORATORY Bone Marrow (Bone Marrow Aspirate) 11/18/2023 12:15 PM TECHNICAL SALES DIRECTOR 11/18/2023 8:49 PM TECHNICAL SALES DIRECTOR Bone marrow specimen (specimen) (Bone Marrow Aspirate (Heparinized)) 11/18/2023 12:15 PM TECHNICAL SALES DIRECTOR 11/18/2023 8:49 PM TECHNICAL SALES DIRECTOR Bone marrow specimen (specimen) (Bone Marrow Core Biopsy) 11/18/2023 12:15 PM TECHNICAL SALES DIRECTOR 11/18/2023 8:49 PM TECHNICAL SALES DIRECTOR Bone marrow specimen (specimen) (Peripheral Blood) 11/18/2023 12:15 PM TECHNICAL SALES DIRECTOR 11/18/2023 8:49 PM TECHNICAL SALES DIRECTOR Danielle Sanchez MD LABORATORY [facility] [address] [place] [address], [place] * MYC/IGH/CEP8 (10/28/2023 11:34 AM TECHNICAL SALES DIRECTOR) Other [facility] / Unknown 10/28/2023 11:34 AM TECHNICAL SALES DIRECTOR 10/29/2023 11:04 AM TECHNICAL SALES DIRECTOR Vianca Jernigan MD [facility] [address] [place] [address], [place] * MT/LN CHROM (10/28/2023 11:34 AM TECHNICAL SALES DIRECTOR) Other [facility] [employer] [place] / Unknown 10/28/2023 11:34 AM TECHNICAL SALES DIRECTOR 10/29/2023 11:04 AM TECHNICAL SALES DIRECTOR Vianca Jernigan MD LABORATORY Performing Organization Address City/[facility] Co de Phone Number [facility] [address] [place] [id number], [place] * MT WETLAB (10/28/2023 11:34 AM TECHNICAL SALES DIRECTOR) Other [facility] [place] / Unknown 10/28/2023 11:34 AM TECHNICAL SALES DIRECTOR 10/29/2023 11:04 AM TECHNICAL SALES DIRECTOR Vianca Jernigan MD LABORATORY Performing Organization Address City/[facility] Co de Phone Number [facility] [address] [place] [phone], [place] * PCB (10/28/2023 11:34 AM TECHNICAL SALES DIRECTOR) Other [facility] [place] / Unknown 10/28/2023 11:34 AM TECHNICAL SALES DIRECTOR 10/29/2023 11:04 AM TECHNICAL SALES DIRECTOR Vianca Jernigan MD LABORATORY Performing Organization Address [facility] Co de Phone Number [email or web address] LABORATORY [address] [place] [address], [place] * OB (10/28/2023 11:34 AM TECHNICAL SALES DIRECTOR) Other [facility] [place] / Unknown 10/28/2023 11:34 AM TECHNICAL SALES DIRECTOR 10/29/2023 11:04 AM TECHNICAL SALES DIRECTOR Vianca Jernigan MD LABORATORY Performing Organization Address City/[facility] Co de Phone Number [facility] [address] [place] [address], [place] * CHROM TECH 2 (10/28/2023 11:34 AM TECHNICAL SALES DIRECTOR) Other [facility] [place] / Unknown 10/28/2023 11:34 AM TECHNICAL SALES DIRECTOR 10/29/2023 11:04 AM TECHNICAL SALES DIRECTOR Vianca Jernigan MD LABORATORY Performing Organization Address City/[facility] Co de Phone Number [facility] [address] [place] [address], [place] * CHROM TECH 1 (10/28/2023 11:34 AM TECHNICAL SALES DIRECTOR) Other [facility] [place] / Unknown 10/28/2023 11:34 AM TECHNICAL SALES DIRECTOR 10/29/2023 11:04 AM TECHNICAL SALES DIRECTOR Vianca Jernigan MD LABORATORY Performing Organization Address [facility] Co de Phone Number [facility]-CENTRAL LABORATORY [address] [place] [address], * LAB TRACKING EVENT (10/28/2023 11:34 AM TECHNICAL SALES DIRECTOR) Only the most recent of2 resultswithin the time period is included. Other (Other) Client Collect / Unknown 10/28/2023 11:34 AM TECHNICAL SALES DIRECTOR 10/28/2023 1:03 PM TECHNICAL SALES DIRECTOR Vianca Jernigan MD LAB BILL ONLY Performing Organization Address [facility] de Phone Number [facility] [address] [place] [address], [place] * MSO AP SEND-OUT (10/28/2023 11:34 AM TECHNICAL SALES DIRECTOR) Other [facility] [place] / Unknown 10/28/2023 11:34 AM TECHNICAL SALES DIRECTOR 11/01/2023 9:32 AM TECHNICAL SALES DIRECTOR Vianca Jernigan MD LABORATORY Performing Organization Address [facility] de Phone Number [facility] [address] [place] [address], * PATH TISSUE EXAM (10/28/2023 11:34 AM TECHNICAL SALES DIRECTOR) Only the most recent of2 resultswithin the time period is included. Case Report Pathology Report ?Case: [id number] ? Authorizing Provider: ??Vianca Jernigan MD ?Collected: ? 10/28/2023 1134 ? Ordering Location: ? [facility]TR[facility] LAB ?Received: ?10/28/2023 1417 ? Pathologist: ? Evelyn, Dino Tamayo, ? MD ? Specimen: ?Groin, Left groin mass ? 11/07/2023 8:30 AM [facility] ENTRAL LABORATORY Amendment 11/07/2023-The tissue was submitted to [facility] for ancillary testing (LPLFX). Please see diagnosis and comment. 11/07/2023 8:30 AM [facility] ENTRAL LABORATORY Final Diagnosis A) LYMPH NODE, LEFT INGUINAL, EXCISIONAL BIOPSY: 1. 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 Cytogenetic chromosome studies pending, appended results to follow 3. MYD88 L265P mutation analysis is NEGATIVE; see attached report for details 4. See comment 11/07/2023 8:30 AM [facility]-C ENTRAL LABORATORY Amendment electronically signed by Osmar Pate MD on 11/07/2023 at 8:30 AM Comment The findings are essentially identical to those seen in the recent left inguinal mass needle core biopsy ([id number], 10/16/2023) and appear characteristic of a low-grade B-cell lymphoma with plasmacytic differentiation most compatible with justine marginal zone lymphoma. There is no evidence of large cell transformation. The differential diagnosis also included lymphoplasmacytic lymphoma, which can show considerable morphologic and immunophenotypic overlap with marginal zone lymphoma, but less often involves lymph nodes. Molecular testing for MYD88 L265P mutation was performed at [facility] and is negative. Given that the vast majority of cases of lymphoplasmacytic lymphoma demonstrate a MYD88 mutation, the findings are most consistent with justine marginal zone lymphoma. Clinical correlation is recommended. 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 Excisional biopsy of this mass is performed . 11/07/2023 8:30 AM TECHNICAL SALES DIRECTOR [facility] ENTRAL LABORATORY Gross Description A) Received fresh [...] flow cytometry, molecular and cytogenetics (all held). Drapery Hand sections are submitted as follows: 1-4. ??Sections of lymph node tissue, B-plus fixative 5-8. ??Sections of lymph node tissue, formalin fixative Time and date in formalin: 1440 on 10/28/2023 TRB 10/28/2023 11/07/2023 8:30 AM TECHNICAL SALES DIRECTOR [facility] ENTRAL LABORATORY Microscopic Description The final diagnosis is based on microscopic examination of appropriate sections of all specimens. Immunostains are performed on block A3 with the following results in abnormal lymphoid cell infiltrate: CD3: ??Negative ?? CD5: ??Negative CD10: Negative CD20: Strongly positive CD21: Weak variable staining of cells with frequent disrupted RESIDENTIAL meshworks CD23: Strongly positive CD43: Weak/equivocal BCL1: Negative BCL2: Positive BCL6: Negative (focally highlights residual germinal centers) Ki67: 10-20% (by manual morphometry) 11/07/2023 8:30 AM [facility]- ENTRMS LABORATORY Flow Cytometry Summary B Cell Leukemia/Lymphoma [...] developed and its performance characteristics verified by [facility]. It has not been cleared or approved [...] Fay, 10/29/2023 2:20 PM 11/07/2023 8:30 AM TECHNICAL SALES DIRECTOR [facility] LABORATORY Cytogenetics Summary Cytogenetic testing has been ordered and will be reported separately. 11/07/2023 8:30 AM TECHNICAL SALES DIRECTOR [facility] ENTRMS LABORATORY Additional Information Interpreted at [facility] - [address], [place] [address] 11/07/2023 8:30 AM TECHNICAL SALES DIRECTOR [facility] ENTRMS LABORATORY Other [facility] / Unknown 10/28/2023 11:34 AM TECHNICAL SALES DIRECTOR 10/28/2023 2:17 PM TECHNICAL SALES DIRECTOR Vainca Jernigan MD PATHOLOGY/CYTOLOGY [facility] LAB[facility] [address] [place] [address], [place] from Last 3 Months Care Teams Class A Truck Driver Relationship Specialty Start Date End Date Pcp, No . PCP - General 05/01/23
--- OUTSIDE RECORDS SUMMARY | 2023-11-21 15:16 | XMS_ITS | Clinical Summary ---
Author Name Unknown Organization [facility] Address [address], [place] [address] Care Team Providers Care Cert Pharmacy Tech Name Role Phone Unavailable Primary Care Provider [...] for each transition of care or referral. [facility] Allergies Active Allergy Reactions Criticality Noted Date [...]
[2023-11-21 15:17] LABS: RBC Urine 50-100 (0-2); WBC Urine 0-2 (0-5)
[2023-11-21 15:23] LABS: Chloride* 103 mmol/L (96-114)
[2023-11-21 15:24] LABS: Albumin* 5.1 g/dL (3.3-5.0); Potassium* 4.3 mmol/L (3.6-5.1); Sodium* 140 mmol/L (135-149)
[2023-11-21 15:26] LABS: Estimated Glomerular Filt Rate 88 ml/min; Slide Review Reflex No
[2023-11-21 15:27] LABS: Alanine Aminotransferase* 39 U/L (4-50); Alkaline Phosphatase* 104 U/L (40-150); Anion Gap 13 mEq/L (7-15); Aspartate Amino Transferase* 39 U/L (12-35); Blood Urea Nitrogen* 16 mg/dL (7-30); Carbon Dioxide* 24 mmol/L (20-32)
[2023-11-21 15:28] LABS: Calcium* 9.5 mg/dL (8.4-10.6); Glucose* 128 mg/dL (60-115)
[2023-11-21 15:30] LABS: C Reactive Protein* 0.6 mg/dL (0.5-1.0)
--- NOTE | 2023-11-21 15:32 | CRLHL7_ITS ---
For Patients: As a result of the Century Cures Act, medical imaging exams and procedure reports are released immediately into your electronic medical record. You may view this report before your referring provider. If you have questions, please contact your health care provider. INDICATION: Hematuria. Left lower quadrant pain. Pain in groin after biopsy. TECHNIQUE: CT abdomen and pelvis without contrast. COMPARISON: None. FINDINGS: Lower chest: Unremarkable. Liver: Normal in size and attenuation. No suspicious masses. Gallbladder and bile ducts: No stones or inflammation. No biliary dilatation. Pancreas: Unremarkable. No mass or inflammation. Spleen: Normal in size. No masses. Adrenal glands: Normal in size. No nodules. Kidneys: A 3 mm stone in the proximal right ureter is causing mild hydronephrosis. No other stones. GI tract: Unremarkable. Normal in caliber. No sign of mass or inflammation. Normal appendix. Vasculature: Abdominal aorta is normal in caliber. Lymph nodes: No lymphadenopathy. Peritoneum/Abdominal Wall: Unremarkable. No sign of mass or infiltration. No free air or significant free fluid. Pelvis: Surgical clips surrounding an oval-shaped soft tissue mass in the left inguinal region. Pelvic structures otherwise unremarkable. Bones: Unremarkable for age. IMPRESSION: 3 mm stone in the proximal right ureter causing mild hydronephrosis. Please note that all CT scans at this facility use dose modulation, iterative reconstruction, and/or weight-based dosing when appropriate to reduce radiation dose to as low as reasonably achievable. Dictated by Sang Guzman MD @ 11/21/2023 4:42:09 PM (Electronically Signed)
[2023-11-21] MEDS: HYDROmorphone 0.5 mg/0.5 ml inj IVP (15:52)
[2023-11-21 17:27] VITALS: BP 138/94; PULSE 89; RESP 18; TEMP 36.4
[2023-11-21 17:30] VITALS: BP 161/103; PULSE 78; RESP 14; O2SAT 98
== END 2023-11-21 17:31 | disposition home or self-care (01) ==
PROVIDERS: Emergency Provider Family Medicine; PCP Internal Medicine Hematology & Oncology
DX: N20.2 Calculus of kidney with calculus of ureter (principal)
CPT/HCPCS: 36415; 74176; 80053; 81001; 85025; 86140; 96374; 96375; 99284; J1170; J2270; J2405; J7030

== ENCOUNTER 2023-11-24 13:15 | Emergency (ER) | payer OTHER, SELFPAY ==
[2023-11-24] VITALS (11 sets, daily range): BP systolic 131–167; BP diastolic 92–111; PULSE 90–106; RESP 20; TEMP 36.3–37.2; O2SAT 91–99; BMI 26.3
[2023-11-24] MEDS: 0.9 % SODIUM CHLORIDE 1000 ml 1,000 ML IV (13:35)
--- NOTE | 2023-11-24 13:45 | ED.GENADULT ---
HPI - General Adult General Date Seen: 11/24/23 Chief complaint: Flank Pain Stated complaint: Kidney stone Time Seen by Provider: 11/24/23 13:37 History of Present Illness HPI narrative: This is a pleasant 58-year-old male who presents to the ER today for right flank pain and kidney stone pain. He has a past medical history of B-cell lymphoma and recent bone marrow biopsy. He was seen in the ER on 11/21 for right lower quadrant pain. He had a CT scan that showed a 3 mm stone in the right proximal ureter with mild hydronephrosis. No other stones. Treated with morphine and Dilaudid. Discharge home with [place] to use p.r.n.. Zofran for nausea. Flomax. On 11/21 labs: WBC 13.4, hemoglobin 15.9, platelet 299. Sodium 140, potassium 4.3, chloride 103, bicarb 24, BUN 16, creatinine 1.0. Glucose 128 AST 39, otherwise LFTs normal UA showed 50-100 RBC. 0-2 WBC He was discharged home with the plan for Tylenol and [place] to use for pain. Flomax. Colace to prevent constipation. Zofran for nausea. For the next couple of days he was using [place] every 6 hours for pain but did not find to be very effective. He really stopped using it about 36 hours prior to arrival because it just was not helping. He was have increasing pain yesterday and also developed some fever and chills yesterday afternoon. This morning he had about a 4 5 over. Where he is pain-free but then he had return of pain involving that right flank and right lower quadrant that was more intense than ever so he came back to the ER. No nausea or vomiting. No confusion. No weakness. He has not had any bowel movements since 4 days ago, and has been taking the prescribed Colace. Related Data Previous Rx's Medication Instructions Recorded hydrocodone 5 mg-acetaminophen 325 See Rx Instructions .Route 11/21/23 mg tablet .COMPLEX PRN pain #14 tabs ondansetron 4 mg disintegrating 4 mg PO Q8-12H PRN nausea and 11/21/23 tablet vomiting #10 tabs tamsulosin 0.4 mg capsule (Flomax) 0.4 mg PO DAILY #5 caps 11/21/23 Allergies Allergy/AdvReac Type Severity Reaction Status Date / Time Penicillins Allergy Verified 11/24/23 13:23 [facility] Surgical History Hx of excision of mass ?Z98.890 - Other specified postprocedural states (ICD-10) History of root canal procedure ?Z98.890 - Other specified postprocedural states (ICD-10) H/O left wrist surgery ?Z98.890 - Other specified postprocedural states (ICD-10) Family History Paternal Grandfather Stroke, Onset Age: 92 Skin cancer Father Skin cancer High blood pressure Atrial fibrillation Social History Narrative: Patient is a professor at [employer]. . No children. No formal exercise. Non smoker. No alcohol. No illicit drugs. Smoking Status: Never smoker Do you use any of these nicotine containing products: None Second hand tobacco smoke exposure: No How often do you have a drink containing alcohol: never AUDIT-C Alcohol total score: 0 Non-prescribed substance use: denies use Caffeine: Yes service: No Exam Narrative: Exam Narrative: Constitutional: Initially in a lot of discomfort and distress. After meds, pain is resolved and he Appears well-developed and well-nourished. Alert. Conversant. Non toxic. HENT: Head: Atraumatic. Nose: Nose normal. Mouth/Throat: Oral mucosa is clear and moist. no trismus. Eyes: Conjunctivae normal. EOM normal. Pupils equal, round, and reactive to light. No scleral icterus. Neck: Normal range of motion. Neck supple. No tracheal deviation present. Cardiovascular: Normal rate, regular rhythm. No gallop. No friction rub. No murmur heard. Symmetric radial artery pulses Pulmonary/Chest: Effort normal. No stridor. No respiratory distress. No wheezes. No rales. No rhonchi . No tenderness. Abdominal: Soft. Bowel sounds normal. No distension. No mass. No tenderness. No CVA tenderness. No rebound. No guarding. Musculoskeletal: RUE: Normal range of motion. No tenderness. No deformity LUE: Normal range of motion. No tenderness. No deformity RLE: Normal range of motion. No edema. No tenderness. No deformity LLE: Normal range of motion. No edema. No tenderness. No deformity Neurological: Alert and oriented to person, place, and time. Normal strength. CN II-VII intact. No sensory deficit. GCS eye subscore is 4. GCS verbal subscore is 5. GCS motor subscore is 6. Normal coordination Skin: Skin is warm and dry. No rash noted. No pallor. Normal capillary refill. Psychiatric: Normal mood. Normal affect. Const: Vital Signs, click to edit/add: Vital Signs - 24 hr 11/24/23 13:24 11/24/23 14:03 11/24/23 14:04 Temperature 97.3 F L Pulse Rate 97 101 H Pulse Rate [Pulse Oximeter] 106 H Respiratory Rate 20 Blood Pressure 131/99 H Blood Pressure [Ri ght Upper Arm] 167/98 H Pulse Oximetry 99 91 92 Oxygen Delivery Me thod Room Air 11/24/23 14:30 11/24/23 14:32 11/24/23 14:33 Temperature Pulse Rate 90 91 94 Pulse Rate [Pulse Oximeter] Respiratory Rate Blood Pressure 137/92 H Blood Pressure [Ri ght Upper Arm] Pulse Oximetry 92 93 94 Oxygen Delivery Me thod 11/24/23 15:00 11/24/23 15:02 11/24/23 15:30 Temperature Pulse Rate 102 H 93 93 Pulse Rate [Pulse Oximeter] Respiratory Rate Blood Pressure 145/97 H Blood Pressure [Ri ght Upper Arm] Pulse Oximetry 93 93 96 Oxygen Delivery Me thod 11/24/23 15:31 11/24/23 16:00 Temperature 98.9 F Pulse Rate 95 Pulse Rate [Pulse Oximeter] Respiratory Rate Blood Pressure 156/111 H Blood Pressure [Ri ght Upper Arm] Pulse Oximetry 95 Oxygen Delivery Me thod Course Vital Signs Vital signs: Initial Vital Signs Temperature 97.3 F L 11/24/23 13:24 Temperature Source Temporal Artery Scan 11/24/23 13:24 Pulse Rate 106 H 11/24/23 13:24 Pulse Rhythm Regular 11/24/23 13:24 Pulse Strength 3+ Normal 11/24/23 13:24 Respiratory Rate 20 11/24/23 13:24 Blood Pressure 167/98 H 11/24/23 13:24 Blood Pressure Mean 121 H 11/24/23 13:24 Blood Pressure Position Sitting 11/24/23 13:24 Pulse Oximetry 99 11/24/23 13:24 Oxygen Delivery Method Room Air 11/24/23 13:24 Vital Signs Temperature 97.3 F L 11/24/23 13:24 Pulse Rate 106 H 11/24/23 13:24 Respiratory Rate 20 11/24/23 13:24 Blood Pressure 167/98 H 11/24/23 13:24 Pulse Oximetry 99 11/24/23 13:24 Oxygen Delivery Method Room Air 11/24/23 13:24 Temperature 98.9 F 11/24/23 16:00 Pulse Rate 95 11/24/23 15:31 Respiratory Rate 20 11/24/23 13:24 Blood Pressure 156/111 H 11/24/23 15:31 Pulse Oximetry 95 11/24/23 15:31 Oxygen Delivery Method Room Air 11/24/23 13:24 Medications Administered Medications: Discontinued Medications Generic Name Dose Route Start Last Admin Trade Name Freq PRN Reason Stop Dose Admin Hydromorphone HCl 1 mg 11/24/23 13:44 11/24/23 13:54 Hydromorphone 0.5 Mg/0.5 Ml Inj IVP 11/24/23 13:45 1 mg ONCE ONE Administration Sodium Chloride 1,000 mls @ 1,000 mls/hr 11/24/23 15:15 11/24/23 14:45 0.9 % Sodium Chloride 1000 Ml IV 11/24/23 16:14 Infused .Q1H WINNIE Infusion Ceftriaxone Sodium 1 gm/ 100 mls @ 200 mls/hr 11/24/23 15:01 11/24/23 15:27 Sodium Chloride IVPB 11/24/23 15:02 200 mls/hr ONCE ONE Administration Ketorolac Tromethamine 15 mg 11/24/23 13:43 11/24/23 13:55 Ketorolac 15 Mg/Ml Inj IVP 11/24/23 13:44 15 mg ONCE ONE Administration Ondansetron HCl 4 mg 11/24/23 13:43 11/24/23 13:52 Ondansetron 2 Mg/Ml Inj IVP 11/24/23 13:44 4 mg ONCE ONE Administration Medical Decision Making MDM Narrative Medical decision making narrative: This patient presents with right flank and right lower quadrant abdominal pain with a known 3 mm right ureteral kidney stone diagnosed on CT scan 3 days ago. He has been feeling to have good pain control with oral [place] at home. He has also developed fever for the past day or so but is not febrile here in the ER. . Differential Diagnosis considered includes: Ureterolithiasis, UTI, pyelonephritis, AAA, colitis, diverticulitis, volvulus, appendicitis, cholecystitis among others. We know he has a 3 mm stone based on imaging from 2 days ago. At this point I do not think he needs repeat CT imaging. At this point, the evaluation indicates that ureterolithiasis is the cause of the patient's symptoms. He did report a fever at home but is not febrile here. He has a mild leukocytosis with a white count of 11 but that is actually improving compared to when it was 13.4. He clinically looks good. Blood pressure, peripheral perfusion, and mental status are all normal. Urinalysis shows 10-25 WBC/HPF (which had not been present on his urinalysis 11/21), also ongoing hematuria with 5-10 RBC. Negative nitrite. He does have lymphoma, but is not currently on chemo. We did obtain a COVID/influenza/RSV swab because of reported fever. It is normal. No other clear sources for infection. Clinically he is not displaying sepsis physiology. He does have an acute kidney injury with creatinine up from 1.0 to 1.6. However he is producing urine feeling better after IV fluids. The patient's pain is controlled in ED. The patient is hemodynamically stable in ED. I think the patient is safe for discharge. For pain control have him discontinue hydrocodone. Switch to Percocet instead. This may give him a better pain relief. We reviewed opiate precautions. Zofran for nausea control. Will continue cephalexin for UTI to prevent kidney infection or sepsis. Precautions for return to the ER reviewed To deal constipation who continue on Colace. Add MiraLax once daily as needed. The plan is discharge to home with recheck by primary care physician or urology. He will call [facility] tomorrow to arrange an outpatient follow-up appointment. They will return to the ED right away if symptoms worsen (e.g Return immediately for fevers greater than 102, increasing pain, other new symptoms develop). Ureterolithiasis precautions for home. Prescriptions for pain control, nausea control, and flomax were provided. The patient's questions were answered. Lab Data Labs: Lab Results 11/24/23 11/24/23 11/24/23 Range/Units 13:33 13:49 13:50 WBC 12.01 H (4.50-11.00) K/uL RBC 5.46 (4.30-5.90) m/uL Hgb 15.3 (13.5-17.5) gm/dL Hct 46.1 (37.0-53.0) % MCV 84 (80-100) fL MCH 28 (26-34) pg MCHC 33 (32-36) gm/dL RDW Coeff of Pravin 13.0 (11.5-15.5) % Plt Count 231 (140-440) K/uL Neut % (Auto) 85.9 H (42.0-72.0) % Lymph % (Auto) 6.0 L (20-44) % [place] % (Auto) 7.3 (0.0-11.0) % Eos % (Auto) 0.4 (0.0-7.0) % Baso % (Auto) 0.2 (0.0-3.0) % Neut # (Auto) 10.30 H (1.7-7.0) K/uL Lymph # (Auto) 0.70 L (0.90-2.90) K/uL [place] # (Auto) 0.90 (0.00-0.90) K/UL Eos # (Auto) 0.00 (0.00-0.50) K/uL Baso # (Auto) 0.00 (0.00-0.30) K/uL Abs Immat Gran (auto) 0.00 (0.00-0.30) K/uL Imm/Tot Granulo (auto) 0.2 % Sodium 136 (135-149) mmol/L Potassium 4.1 (3.6-5.1) mmol/L Chloride 101 (96-114) mmol/L Carbon Dioxide 23 (20-32) mmol/L Anion Gap 12 (7-15) mEq/L BUN 25 (7-30) mg/dL Creatinine 1.6 H (0.5-1.5) mg/dL Estimated Creat Clear 50.94 Estimated GFR 50 ml/min Glucose 141 H (60-115) mg/dL Lactate 1.6 (0.5-1.9) mmol/L Calcium 9.2 (8.4-10.6) mg/dL Total Bilirubin 1.1 (0.1-1.5) mg/dL AST 30 (12-35) U/L ALT 32 (4-50) U/L Alkaline Phosphatase 111 (40-150) U/L Total Protein 7.7 (6.0-8.3) g/dL Albumin 4.5 (3.3-5.0) g/dL Urine Color [place]ha A (Yellow) Urine Appearance Cloudy A (Clear) Urine pH 5.0 (5.0-8.5) Ur Specific [place] >= 1.030 (1.000-1.030) Urine Protein 1+ A (Negative) Urine Glucose (UA) Negative (Negative) Urine Ketones Trace A (Negative) Urine Blood 3+ A (Negative) Urine Nitrite Negative (Negative) Urine Bilirubin 1+ A (Negative) Urine Urobilinogen 0.2 (0.2-1.0) Ur Leukocyte Esterase Trace A (Negative) Urine RBC 5-10 A (0-2) Urine WBC 10-25 A (0-5) Ur Squamous Epith Cells Few (None-Few) Amorphous Sediment Moderate A (None) Urine Bacteria Few A (None) Coarse Granular Casts Moderate A (None) Urine Mucus Few A (None) SARS-CoV-2 (PCR) Negative SARS-CoV-2 (Negative) Influenza Type A (PCR) Negative PCR FLU A (Negative) Influenza Type B (PCR) Negative PCR FLU B (Negative) RSV (PCR) Negative PCR RSV (Negative) Discharge Plan Discharge Clinical Impression: Pyuria, Kidney stone, Constipation Patient Disposition: Home, Self-Care Condition: Stable Instructions: Constipation (DC), Kidney Stones (ED) Additional Instructions: For follow-up for your kidney stone, please call the urology clinic at [phone]. Please make an appointment to see one of the urologists as an ER follow-up. To help your stone to pass, continue on Flomax 1 tablet per day. To treat the pain from the your kidney stone, continue with Tylenol or ibuprofen. Add prescription pain killer (Dilaudid) every 4 hours if needed for uncontrolled pain. Use caution because Dilaudid can cause drowsiness, dizziness, and constipation. All opiate pain killers , including Dilaudid, can be addictive. Use Zofran if needed for nausea. Try to drink plenty of fluids to stay hydrated. To treat the constipation, keep taking Colace twice per day. Also start taking MiraLax 1 capful mixed in 8 oz of water once daily as needed. Your urine sample shows week signs of an infection today. We want to avoid any severe kidney infection. Therefore start taking antibiotics twice daily until the stone passes or you see the urologist. If you have any worsening symptoms, such as uncontrolled pain, uncontrolled vomiting or dehydration, weakness, or any fevers, please return to the ER right away. Prescriptions: No Action tamsulosin [Flomax] 0.4 mg capsule 0.4 mg PO DAILY Qty: 5 0RF hydrocodone-acetaminophen 5-325 mg tablet See Rx Instructions .ROUTE .COMPLEX PRN (Reason: pain) Qty: 14 0RF Rx Instructions: 1-2 tabs every 4-6 hours as needed for discomfort. ondansetron 4 mg tablet,disintegrating 4 mg PO Q8-12H PRN (Reason: nausea and vomiting) Qty: 10 0RF Follow Up/Referrals: Danielle Sanchez MD [Primary Care Provider] - Stand Alone Forms: [employer] Info Instructions
[2023-11-24] MEDS: ONDANSETRON 2 MG/ML inj 4 MG IVP (13:52)
[2023-11-24] MEDS: HYDROmorphone 0.5 mg/0.5 ml inj 1 MG IVP (13:54)
[2023-11-24] MEDS: KETOROLAC 15 MG/ML inj IVP (13:55)
[2023-11-24 13:56] LABS: Basophils Percent Auto 0.2 % (0.0-3.0); Eosinophils Percent Auto 0.4 % (0.0-7.0); Hematocrit 46.1 % (37.0-53.0); Hemoglobin* 15.3 gm/dL (13.5-17.5); Immature Granulocytes Pct Auto 0.2 %; Mean Corpuscular HGB Conc 33 gm/dL (32-36); Mean Corpuscular Hemoglobin 28 pg (26-34); Mean Corpuscular Volume 84 fL (80-100); Monocytes Percent Auto 7.3 % (0.0-11.0); Neutrophils Percent Auto 85.9 % (42.0-72.0); Platelet Count* 231 K/uL (140-440); Red Blood Count 5.46 m/uL (4.30-5.90); White Blood Count* 12.01 K/uL (4.50-11.00)
[2023-11-24 13:58] LABS: Slide Review Reflex No
[2023-11-24 14:07] LABS: Appearance Urine Cloudy (Clear); Bilirubin Urine 1+ (Negative); Blood Urine 3+ (Negative); Color Urine Amber (Yellow); Glucose Urine Negative (Negative); Ketones Urine Trace (Negative); Leukocyte Esterase Urine Trace (Negative); Nitrite Urine Negative (Negative); Protein Urine 1+ (Negative); Specific Gravity Urine >= 1.030 (1.000-1.030); Urobilinogen Urine 0.2 (0.2-1.0)
[2023-11-24 14:16] LABS: Albumin* 4.5 g/dL (3.3-5.0); Chloride* 101 mmol/L (96-114); Potassium* 4.1 mmol/L (3.6-5.1); Sodium* 136 mmol/L (135-149)
[2023-11-24 14:18] LABS: Creatinine* 1.6 mg/dL (0.5-1.5); Est. Creatinine Clearance* 50.94; Estimated Glomerular Filt Rate 50 ml/min
[2023-11-24 14:19] LABS: Alanine Aminotransferase* 32 U/L (4-50); Alkaline Phosphatase* 111 U/L (40-150); Anion Gap 12 mEq/L (7-15); Aspartate Amino Transferase* 30 U/L (12-35); Bilirubin Total* 1.1 mg/dL (0.1-1.5); Blood Urea Nitrogen* 25 mg/dL (7-30); Calcium* 9.2 mg/dL (8.4-10.6); Carbon Dioxide* 23 mmol/L (20-32); Glucose* 141 mg/dL (60-115); Lactate* 1.6 mmol/L (0.5-1.9); Total Protein* 7.7 g/dL (6.0-8.3)
[2023-11-24 14:34] LABS: Amorphous Sediment Urine Moderate; Bacteria Urine Few; Mucus Urine Few; Squamous Epithelial Cell Urine Few (None-Few)
[2023-11-24 14:35] LABS: Coarse Granular Casts Urine Moderate
[2023-11-24 14:41] LABS: PCR FLU A Negative PCR FLU A (Negative); PCR FLU B Negative PCR FLU B (Negative); PCR RSV Negative PCR RSV (Negative); SARS PCR* Negative SARS-CoV-2 (Negative)
--- OUTSIDE RECORDS SUMMARY | 2023-11-24 14:41 | XMS_ITS | Clinical Summary ---
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 [facility] Active Allergy Reactions Criticality Noted Date [...]
--- OUTSIDE RECORDS SUMMARY | 2023-11-24 14:41 | XMS_ITS | Clinical Summary ---
Author Name Unknown Organization [facility] Address [place], [place] [address] Care Team Providers Care Sole Sewer Hand Name Role Phone Pcp, No Primary Care Provider Unavailabl e Allergies Active Allergy Reactions Criticality Noted Date Comments Penicillins *Unknown - Childhood Rxn 10/01/2011 Medications No known medications Active Problems No known active problems Encounters Date Type Department Care Team Description 11/18/2023 Lab Requisition [facility] [phone] Danielle Sanchez MD 10/28/2023 Lab Requisition [facility] [phone] Vianca Jernigan MD 10/28/2023 Lab Requisition [facility] [phone] Vianca Jernigan MD 10/16/2023 Lab Requisition [facility] [phone] Vianca Jernigan MD from Last 3 Months [...] Comments Blood Pressure 122/82 10/01/2011 8:57 AM ELECTRICAL INSTRUMENT MAKER Pulse 82 10/01/2011 8:57 AM ELECTRICAL INSTRUMENT MAKER Temperature - - Respiratory Rate - - Oxygen Saturation - - Inhaled Oxygen Concentration - - Weight 73.6 kg (162 lb 3.2 oz) 10/01/2011 8:57 A M ELECTRICAL INSTRUMENT MAKER Height 176.5 cm (5' 9.5) 10/01/2011 8:57 AM ELECTRICAL INSTRUMENT MAKER Body Mass Index 23.61 10/01/2011 8:57 AM ELECTRICAL INSTRUMENT MAKER Plan of Treatment Health Maintenance Due Date [...] Associated Diagnosis Comments LAB TRACKING EVENT Routine 11/18/2023 12 :15 PM ELECTRICAL INSTRUMENT MAKER BONE MARROW STUDY Routine 11/18/2023 12: 15 PM ELECTRICAL INSTRUMENT MAKER BONE MARROW DIFFERENTIAL Routine 11/18/2023 12:15 PM ELECTRICAL INSTRUMENT MAKER LAB TRACKING EVENT Routine 10/28/2023 11 :34 AM ELECTRICAL INSTRUMENT MAKER PATH TISSUE EXAM Routine 10/28/2023 11:3 4 AM ELECTRICAL INSTRUMENT MAKER CHROM TECH 2 Routine 10/28/2023 11:34 AM ELECTRICAL INSTRUMENT MAKER MYC/IGH/CEP8 Routine 10/28/2023 11:34 AM ELECTRICAL INSTRUMENT MAKER CHROM TECH 1 Routine 10/28/2023 11:34 AM ELECTRICAL INSTRUMENT MAKER MSO AP SEND-OUT Routine 10/28/2023 11:34 AM ELECTRICAL INSTRUMENT MAKER PCB Routine 10/28/2023 11:34 AM ELECTRICAL INSTRUMENT MAKER OB Routine 10/28/2023 11:34 AM ELECTRICAL INSTRUMENT MAKER MT WETLAB Routine 10/28/2023 11:34 AM ELECTRICAL INSTRUMENT MAKER MT/LN CHROM Routine 10/28/2023 11:34 AM ELECTRICAL INSTRUMENT MAKER CYTOGENETICS MALIGNANT TISSUE Routine 10/28/2023 11:34 AM ELECTRICAL INSTRUMENT MAKER LAB TRACKING EVENT Routine 10/16/2023 10 :30 AM ELECTRICAL INSTRUMENT MAKER PATH TISSUE EXAM Routine 10/16/2023 10:3 0 AM ELECTRICAL INSTRUMENT MAKER from Last 3 Months Results * BONE MARROW DIFFERENTIAL (11/18/2023 12:15 PM ELECTRICAL INSTRUMENT MAKER) Bone Marrow (Bone Marrow Aspirate) 11/18/2023 12:15 PM ELECTRICAL INSTRUMENT MAKER 11/19/2023 8:08 AM ELECTRICAL INSTRUMENT MAKER Danielle Sanchez MD LABORATORY Performing Organization Address City/[facility] Co de Phone Number [facility] LABORATORY-CENTRAL LABORATORY [address] [place] [address], * LAB TRACKING EVENT (11/18/2023 12:15 PM ELECTRICAL INSTRUMENT MAKER) Only the most recent of3 resultswithin the time period is included. Other (Other) Client Collect / Unknown 11/18/2023 12:15 PM ELECTRICAL INSTRUMENT MAKER 11/18/2023 8:41 PM ELECTRICAL INSTRUMENT MAKER Danielle Sanchez MD LAB BILL ONLY Performing Organization Address [facility] Co de Phone Number [facility]-CENTRAL LABORATORY [address] [place] [address], * BONE MARROW STUDY (11/18/2023 12:15 PM ELECTRICAL INSTRUMENT MAKER) Case Report Bone Marrow Pathology Report ?Case: [id number] ? Authorizing Provider: ??Danielle Sanchez MD ?Collected: ? 11/18/2023 1215 ? Ordering Location: ? [facility] ?Received: ?11/18/2023 2049 ? Pathologist: ? Cecelia Reyes MD ? Specimens: ?? A) - Bone Marrow Aspirate, right ? B) - Bone Marrow Aspirate (Heparinized), right ? C) - Bone Marrow Core Biopsy, right ? D) - Peripheral Blood ? 11/20/2023 4:38 PM [facility] LABORATORY-C ENTRAL LABORATORY Final Diagnosis BONE MARROW: 1. ??Negative for lymphoma 2. ??Normocellular bone marrow for age (50-60% cellular) with trilineage hematopoiesis 3. ??Adequate storage iron; adequate sideroblastic iron 4. ??Ancillary studies: ?a. ??Cytogenetics: Not performed ?b. 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 A staging bone marrow biopsy is performed. 11/20/2023 4:38 PM [facility] [employer] HE[facility] LABORATORY-C ENTRAL LABORATORY PROCEDURE A RIGHT lateral bone marrow biopsy and unilateral aspiration procedure is performed at [facility] on 11/18/23. ARTURO Sandoval performed the procedure using an 8 gauge manual needle. The ordering physician is Dr. Danielle Sanchez . The specimen is inked black. EKW 11/19/2023 ? 11/20/2023 4:38 PM [facility] [employer] [facility] LABORATORY-C ENTRAL LABORATORY CBC and Differential HEMATOLOGY PARAMETERS Tested at: ??Central Laboratory ? RESULTS ??EXPECTED VALUES WBC: ? 7.3 ?4.5-48l7302/cum m ? RBC: ? 5.29 ? 4.30-5.90 mil/cumm HGB: ? 14.8 ? 13.5-17.5 gm/di ? HCT: ? 44.5 ? 37-53% ? MCV: ? 84.1 ? 80-100 fl ? NORMOCYTIC MCH: ? 28.0 ? 26-34 pg ? MCHC: ?33.3 ? 32-36 gm/dl ? NORMOCHROMIC RDW: ? 13.0 ? 11.5-15.5% ? PLT: ? 253 ?140-687r0881/uL ? Retic: ?? 1.22 ? 0.5-1.5% ? [...] (0-3%) ? (Metas, Myelos,Pros) 11/20/2023 4:38 PM [facility] LABORATORY-C ENTRAL LABORATORY Bone Marrow Differential Blasts: ?1.0 ? 0.2-1.5% ? Neutrophils & precursors: ??61.4 ?58.0-65.0% ? Eosinophils & precursors: ??4.2 ? 0.2-5.3% ? Basophils & precursors: ?0.4 ? 0.0-1.0% ? Erythroid precursors: ?15.8 ?18.0-24.0% ?DECREASED Lymphocytes: ? 11.0 ? 3.0-24.0% ? Monocytes: ? 5.8 ? 0.7-2.8% ?ELEVATED Plasma cells: ?0.4 ? 0.1-1.5% ? M:E Ratio: ? 61 : 16 11/20/2023 4:38 PM [facility] [employer] [facility] LABORATORY Microscopic Description SPECIMENS EXAMINED: Peripheral blood [...] results included in diagnosis. 11/20/2023 4:38 PM [facility] [employer] [facility] LABORATORY Flow Cytometry Summary B Cell Screen panel: Interpretation: No monotypic B lymphocytes are detected. Clinical indication for flow cytometry: To evaluate for light chain restriction among B cells. Percent of Lymphs B cells: 5.7% T cells: 90.1% CD19+/Derma: 3.4% CD19+/Lambda: 2.2% Derma:Lambda ratio: 1.5 B lymphocytes in this analysis demonstrate normal qualitative expression of the following antigens: CD3, CD5, CD10, CD19, CD20, CD45, and Derma and Lambda surface light chains. Quality Assessment Viability (7-AAD): 83% Polytypic B cell events: 52 Nucleated cells analyzed: 51124 Limit of detection (LOD): 0.2% These results and cytograms have been verified by Dr. Reyes. This test was developed and its performance characteristics verified by [employer]. It has not been cleared or approved [...] Fay, 11/19/2023 1:15 PM 11/20/2023 4:38 PM ELECTRICAL INSTRUMENT MAKER [facility] LABORATORY Other Testing Immunostains were performed on the bone core biopsy. CD3 (T cell marker): ??appropriate in number and distribution CD20 (B cell marker): Not increased CD138 (plasma cell marker): Not increased 11/20/2023 4:38 PM ELECTRICAL INSTRUMENT MAKER [facility] LABORATORY Additional Information Interpreted at [facility] Central Laboratory - [address] [facility] [address], [place] [address] 11/20/2023 4:38 PM ELECTRICAL INSTRUMENT MAKER [facility] LABORATORY Bone Marrow (Bone Marrow Aspirate) 11/18/2023 12:15 PM ELECTRICAL INSTRUMENT MAKER 11/18/2023 8:49 PM ELECTRICAL INSTRUMENT MAKER Bone marrow specimen (specimen) (Bone Marrow Aspirate (Heparinized)) 11/18/2023 12:15 PM ELECTRICAL INSTRUMENT MAKER 11/18/2023 8:49 PM ELECTRICAL INSTRUMENT MAKER Bone marrow specimen (specimen) (Bone Marrow Core Biopsy) 11/18/2023 12:15 PM ELECTRICAL INSTRUMENT MAKER 11/18/2023 8:49 PM ELECTRICAL INSTRUMENT MAKER Bone marrow specimen (specimen) (Peripheral Blood) 11/18/2023 12:15 PM ELECTRICAL INSTRUMENT MAKER 11/18/2023 8:49 PM ELECTRICAL INSTRUMENT MAKER Danielle Sanchez MD LABORATORY [facility] LABORATORY [address] [place] [address], [place] * MYC/IGH/CEP8 (10/28/2023 11:34 AM ELECTRICAL INSTRUMENT MAKER) Other [facility] / Unknown 10/28/2023 11:34 AM ELECTRICAL INSTRUMENT MAKER 10/29/2023 11:04 AM ELECTRICAL INSTRUMENT MAKER Vianca Jernigan MD LABORATORY Performing Organization Address City/[facility]/ZIP Co de Phone Number [facility] LABORATORY [address] [place] [address], [place] * MT/LN CHROM (10/28/2023 11:34 AM ELECTRICAL INSTRUMENT MAKER) Other [facility] [place] / Unknown 10/28/2023 11:34 AM ELECTRICAL INSTRUMENT MAKER 10/29/2023 11:04 AM ELECTRICAL INSTRUMENT MAKER Vianca Jernigan MD LABORATORY Performing Organization Address [facility] Co de Phone Number [facility] LABORATORY [address] [place] [address], [place] * MT WETLAB (10/28/2023 11:34 AM ELECTRICAL INSTRUMENT MAKER) Other [facility] [place] / Unknown 10/28/2023 11:34 AM ELECTRICAL INSTRUMENT MAKER 10/29/2023 11:04 AM ELECTRICAL INSTRUMENT MAKER Vianca Jernigan MD LABORATORY Performing Organization Address City/[facility] Co de Phone Number [facility] LAB[facility] [address] [place] [address], [place] * PCB (10/28/2023 11:34 AM ELECTRICAL INSTRUMENT MAKER) Other [facility] [place] / Unknown 10/28/2023 11:34 AM ELECTRICAL INSTRUMENT MAKER 10/29/2023 11:04 AM ELECTRICAL INSTRUMENT MAKER Vianca Jernigan MD LABORATORY Performing Organization Address City/[facility]/ZIP Co de Phone Number [facility] [address] [place] [address], [place] * OB (10/28/2023 11:34 AM ELECTRICAL INSTRUMENT MAKER) Other [facility] [place] / Unknown 10/28/2023 11:34 AM ELECTRICAL INSTRUMENT MAKER 10/29/2023 11:04 AM ELECTRICAL INSTRUMENT MAKER Vianca Jernigan MD LABORATORY Performing Organization Address [facility] Co de Phone Number [facility] [employer]CENTRAL LABORATORY [address] [place] [address], [place] * CHROM TECH 2 (10/28/2023 11:34 AM ELECTRICAL INSTRUMENT MAKER) Other [facility] [place] / Unknown 10/28/2023 11:34 AM ELECTRICAL INSTRUMENT MAKER 10/29/2023 11:04 AM ELECTRICAL INSTRUMENT MAKER Vianca Jernigan MD LABORATORY Performing Organization Address [facility] Co de Phone Number [facility] [employer] LABORAT[facility] [address] [place] [address], [place] * CHROM TECH 1 (10/28/2023 11:34 AM ELECTRICAL INSTRUMENT MAKER) Other [facility] [place] / Unknown 10/28/2023 11:34 AM ELECTRICAL INSTRUMENT MAKER 10/29/2023 11:04 AM ELECTRICAL INSTRUMENT MAKER Vianca Jernigan MD LABORATORY Performing Organization Address [facility] Co de Phone Number [facility] [employer] LABORATORY [address] [place] [address], [place] * MSO AP SEND-OUT (10/28/2023 11:34 AM ELECTRICAL INSTRUMENT MAKER) Other [facility] [place] / Unknown 10/28/2023 11:34 AM ELECTRICAL INSTRUMENT MAKER 11/01/2023 9:32 AM ELECTRICAL INSTRUMENT MAKER Vianca Jernigan MD LABORATORY Performing Organization Address [facility] Co de Phone Number [facility] [address] [place] [address], [place] * CYTOGENETICS MALIGNANT TISSUE STUDIES (10/28/2023 11:34 AM ELECTRICAL INSTRUMENT MAKER) RFR B-cell lymphoma, consistent with marginal zone lymphoma 11/21/2023 4:26 PM ELECTRICAL INSTRUMENT MAKER [facility] LABORATORY TEST & RESULT SUMMARY Chromosome Analysis: ?? Positive for an abnormal clone with a t(8;14), gain of an X chromosome and deletion 6q. MYC/IGH/CEP8 FISH: ?? Positive for MYC/IGH t(8;14) rearrangement. 11/21/2023 4:26 PM [facility] CENTRAL LABORATORY _ 11/21/2023 4:26 PM [facility] CENTRAL LABORATORY ISCN 47,XY,+X,del(6)(q13q 2 7),t(8;14)(q24;q32)[1 2]/46,XY[8] nuc burt(MYCx3,IGHx3~4)(MY C con IGHx2)[141/200] 11/21/2023 4:26 PM [facility] CENTRAL LABORATORY INTERPRETATION Chromosome analysis revealed an abnormal clone with a t(8;14)(q24;q32), gain of an X chromosome, and a deletion 6q in 12 metaphases, with the remaining 8 metaphases being cytogenetically normal. MYC/IGH/CEP8 FISH revealed evidence of clonal MYC/IGH rearrangement in 70.5% of nuclei examined. ?? A t(8;14) rearrangement is observed rarely in marginal zone lymphoma. The t(8;14) may be associated with a distinct clinicopathological subset of SMZL with a potentially aggressive clinical course (Liset, 2018; Celestine, 2012). Clinicopathologic correlation of these results is recommended. 11/21/2023 4:26 PM [facility] LABORATORY LAB TEST DETAILS Fully Analyzed Metaphases: ??20 Partially Analyzed Metaphases: ??0 Full Karyotypes: ??3 Abnormality ? Result ? %Abn ?Cutoff MYC/IGH rearrangement ?? Abnormal ?? 70.5% ?? >1.5% 11/21/2023 4:26 PM [facility]AL LABORATORY SOURCE Groin (Fresh Tissue) [id number] Groin (Touch Prep Slides x4) [id number] 11/21/2023 4:26 PM [facility] METHODS Cultures used in chromosome analysis included a non-stimulated culture and a culture stimulated with the following B-cell mitogens: phorbol 12-myristate 13-acetate (PMA) and cytochalasin B (Cyto-B). Chromosome analysis is performed on consecutive analyzable G-banded metaphases. Uncultured cells were hybridized using fluorescence in situ hybridization (FISH) with the following probe sets: ??Probe Source ? Probe/location ?Probe Strategy ??Vysis ?MYC(8q24)/IGH(14q32 .3)/CEP8 (D8Z2,8 centromere) ?? Dual Fusion FISH analysis was performed on 200 consecutive analyzable nuclei. This FISH test uses a multiplex probe stain procedure. 11/21/2023 4:26 PM [facility] CENTRAL LABORATORY REFERENCES Ke Hutchins., Sonia Nicole, Debbie Santana. et al. 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 Mohini Hematol 97, 0843-7077 (2018). [email or web address] [email or web address] Karma Sprague, Christina Young & Trinity Ceja. 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 J Hematopathol 5, 141-147 (2012). [email or web address]://[email or web address] 07/[email or web address] 11/21/2023 4:26 PM [facility] DISCLAIMER These tests were developed and its performance characteristics determined by the [facility]. It has not been cleared or approved by the U.S. Food and Drug Administration. The FDA does not require these tests to go through premarket FDA review. These tests are used for clinical purposes. They should not be regarded as investigational or for research. This laboratory is certified under the Clinical Laboratory Improvement Amendments (CLIA) as qualified to perform high complexity clinical laboratory testing. 11/21/2023 4:26 PM [facility] LABORATORY Other SW[facility] / Unknown 10/28/2023 11:34 AM ELECTRICAL INSTRUMENT MAKER 10/29/2023 11:04 AM ELECTRICAL INSTRUMENT MAKER Vianca Jernigan MD LABORATORY [facility] LABORAT[facility]-CENTRAL LABORATORY [address] [place] [address], * PATH TISSUE EXAM (10/28/2023 11:34 AM ELECTRICAL INSTRUMENT MAKER) Only the most recent of2 resultswithin the time period is included. Case Report Pathology Report ?Case: [id number] ? Authorizing Provider: ??Vianca Jernigan MD ?Collected: ? 10/28/2023 1134 ? Ordering Location: ? [facility] ?Received: ?10/28/2023 1417 ? Pathologist: ? Dino Rivas, ? MD ? Specimen: ?Groin, Left groin mass ? 11/07/2023 8:30 AM [facility] ENTRAL LABORATORY Amendment 11/07/2023-The tissue was submitted to [facility] [employer] for ancillary testing (LPLFX). Please see diagnosis and comment. 11/07/2023 8:30 AM ELECTRICAL INSTRUMENT MAKER [facility] LABORATORY-C ENTRAL LABORATORY Final Diagnosis A) LYMPH NODE, LEFT INGUINAL, EXCISIONAL BIOPSY: 1. 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 Cytogenetic chromosome studies pending, appended results to follow 3. MYD88 L265P mutation analysis is NEGATIVE; see attached report for details 4. See comment 11/07/2023 8:30 AM [facility] Amendment electronically signed by Osmar Pate MD on 11/07/2023 at 8:30 AM Comment The findings are essentially identical to those seen in the recent left inguinal mass needle core biopsy ([id number], 10/16/2023) and appear characteristic of a low-grade B-cell lymphoma with plasmacytic differentiation most compatible with justine marginal zone lymphoma. There is no evidence of large cell transformation. The differential diagnosis also included lymphoplasmacytic lymphoma, which can show considerable morphologic and immunophenotypic overlap with marginal zone lymphoma, but less often involves lymph nodes. Molecular testing for MYD88 L265P mutation was performed at [facility] and is negative. Given that the vast majority of cases of lymphoplasmacytic lymphoma demonstrate a MYD88 mutation, the findings are most consistent with justine marginal zone lymphoma. Clinical correlation is recommended. 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 Excisional biopsy of this mass is performed . 11/07/2023 8:30 AM [facility] Gross Description A) Received fresh [...] flow cytometry, molecular and cytogenetics (all held). [employer] Lieutenant sections are submitted as follows: 1-4. ??Sections of lymph node tissue, B-plus fixative 5-8. ??Sections of lymph node tissue, formalin fixative Time and date in formalin: 1440 on 10/28/2023 TRB 10/28/2023 11/07/2023 8:30 AM [facility]TRTX LABORATORY Microscopic Description The final diagnosis is [...] 10-20% (by manual morphometry) 11/07/2023 8:30 AM [facility]-C ENTRAL LABORATORY Flow Cytometry Summary B Cell Leukemia/Lymphoma [...] developed and its performance characteristics verified by [facility]. It has not been cleared or approved [...] Fay, 10/29/2023 2:20 PM 11/07/2023 8:30 AM ELECTRICAL INSTRUMENT MAKER [facility] [employer] [facility] Cytogenetics Summary Cytogenetic testing has been ordered and will be reported separately. 11/07/2023 8:30 AM ELECTRICAL INSTRUMENT MAKER [facility] Additional Information Interpreted at [facility] Laboratory - [address] [facility] [address], [place] [address] 11/07/2023 8:30 AM ELECTRICAL INSTRUMENT MAKER [facility] LABORATORY Other [facility] / Unknown 10/28/2023 11:34 AM ELECTRICAL INSTRUMENT MAKER 10/28/2023 2:17 PM ELECTRICAL INSTRUMENT MAKER Vianca Jernigan MD PATHOLOG[facility] [address] [place] [address], [place] from Last 3 Months Care Teams Sole Sewer Hand Relationship Specialty Start Date End Date Pcp, No . PCP - General 05/01/23
[2023-11-24] MEDS: cefTRIAXone 1 GM in 0.9 % SODIUM CHLORIDE Mini-bag 100 ML IVPB (15:27)
--- NOTE | 2023-11-24 16:00 | ED.NURSE ---
Pt in bathroom attempting to have BM. Has been unable to have one x [address] Petty aware and notified this poem writer of need for pt to have BM.
--- NOTE | 2023-11-24 17:13 | ED.NURSE ---
Pt reported he was able to have a large BM of mostly loose stool. Dr. Petty informed.
== END 2023-11-24 17:10 | disposition home or self-care (01) ==
PROVIDERS: Emergency Provider Emergency Medicine; PCP Internal Medicine Hematology & Oncology
DX: R82.81 Pyuria (principal); N20.0 Calculus of kidney; K59.00 Constipation, unspecified
CPT/HCPCS: 36415; 80053; 81001; 83605; 85025; 87040; 87086; 87631; 96361; 96374; 96375; 99284; J0696; J1170; J1885; J2405; J7030

== ENCOUNTER 2024-01-09 09:49 | Outpatient (CLI) | payer OTHER, SELFPAY ==
--- NOTE | 2024-01-09 10:00 | CT_ITS ---
Patient: YANCY ORNELAS Facility:?[facility] Patient ID:?[id number] Site Patient ID:?[id number]. Site :?[id number] Study:?CT-Knee Right W/ISOVUE 370 89CC-01/09/2024 10:19:24 AM Ordering Physician:GURJIT Final Report: Indication: Jona marginal zone B-cell lymphoma Technique: CT Knee Right W/ISOVUE 370 89CC Please note that all CT scans at this facility use dose modulation, iterative reconstruction, and/or weight-based dosing when appropriate to reduce radiation dose to as low as reasonably achievable. Comparison: CT PET 11/06/2023 Findings: No soft tissue masses present. Normal patency of the arterial structures without dissection or aneurysm. No joint effusion. No fracture or intrinsic osseous lesion. No suspicious findings are present. No significant internal derangement. Mild degenerative arthrosis. Impression: No suspicious findings. Please note that all CT scans at this facility use dose modulation, iterative reconstruction, and/or weight-based dosing when appropriate to reduce radiation dose to as low as reasonably achievable. Dictated by Eddi Mcguire MD @ 01/09/2024 10:53:46 AM Signed by:?Eddi Mcguire MD @01/09/2024 10:53:46 AM (Electronic Signature)
== END 2024-01-09 09:50 | disposition home or self-care (01) ==
LOC: CT 09:49
PROVIDERS: PCP Nurse Practitioner Family; Visit Provider Internal Medicine
DX: C83.00 Small cell B-cell lymphoma, unspecified site (principal); M25.461 Effusion, right knee
CPT/HCPCS: 73701; Q9967

== ENCOUNTER 2024-02-03 07:54 | Outpatient (CLI) | payer OTHER, SELFPAY ==
--- OUTSIDE RECORDS SUMMARY | 2024-02-03 07:56 | XMS_ITS | Encounter Summary ---
Author Name Unknown Organization [facility] Address [address] [place] [address] Care Team Providers Care Silviculturist Name Role Phone Unavailable Primary Care Provider Unavailabl e Encounter Details Date Type Department Care Team (Late st Contact Info) Description 01/06/2024 Clinical Communication Department of Radiation Oncology in [place], [place] [address] [place] [address] Saman Morfin M.D. [address] [place] [address] Social History Tobacco Use Types Packs/Day Years Used Date Smoking Tobacco: Never Smokeless Tobacco: Never Alcohol Use Standard Drinks/Week Comments Not Currently 0 (1 standard drink = 0.6 oz pur e alcohol) [facility] Utilities Answer Date Recorded In the past 12 months has e electric, gas, oil, or water company threatened to shut off services in your home? No 01/05/2024 Exercise Vital Sign Answer Date Recorde d On average, how many days pe r week do you engage in moderate to strenuous exercise (like a brisk walk)? 3 days 01/05/2024 On average, how many minutes do you engage in exercise at this level? 60 min 01/05/2024 Hunger Vital Sign Answer Date Recorded Within the past 12 months, y ou worried that your food would run out before you got the money to buy more. Never true 01/05/20 24 Within the past 12 months, t he food you bought just didn't last and you didn't have money to get more. Never true 01/05/2024 PRAPARE - Transportation Answer Date Re corded In the past 12 months, has l ack of transportation kept you from medical appointments or from getting medications? No 12/19 In the past 12 months, has l ack of transportation kept you from meetings, work, or from getting things needed for daily living? No 01/05/2024 Nutrition Answer Date Recorded Nutrition: EVOO Fat Source Unknown 01/04 On average, how many serving s of fruits and vegetables do you eat per day (serving size is equal to 1 cup or approximately the size of a tennis ball)? 3-5 01/05/2024 Dental Answer Date Recorded Dental: Regular Dentist Yes 01/05/20 Employment Answer Date Recorded Employment status Employed and actively working without restrictions 01/05/2024 Housing Stability Answer Date Recorded What is your living situation today? I have a [facility] place to live 01/05/2024 Sex and Gender Information Value Date Recorded Sex Assigned at Male 01/05/2024 12:37 PM CDT Gender Identity Male 01/05/2024 12:37 PM CDT Sexual Orientation Straight 01/05/2024 12 :37 PM CDT documented as of this encounter Miscellaneous Notes * Telephone Encounter - Lisa Calles R.N. - 01/06/2024 8:58 AM CDT Information Discussed Patient asking if Mometasone prescription has been sent in and if he starts applying ointment today. I discussed with patient that I do see prescription has [facility] sent [facility] [place]. Patient mcintyre start mometasone ointment to left groin today and apply twice a day. Patient will wait 20 minutes and then apply moisturizing lotion treatment field area as well. Radiation Oncology [place] can be contacted at anytime for any questions or concerns. PLAN Disposition/Recommendation: self-care - appropriate at this time, patient encouraged to call back with questions Information/Education: patient/caller able to teach back Caller agreeable to plan of care: yes The following references were used: nursing clinical judgement * Telephone Encounter - Tosha Duke - 01/06/2024 8:33 AM CDT Other Reason for Call Caller: Esau Relationships to patient: Self Reason for call: Patient called asking about the cream that was going to be prescribed to him for his radiation treatments. He was not sure if this was something he needed to start today? He starts treatment today, or if he would get the information and prescription for the cream today? He would appreciate a call back. [phone] documented in this encounter Plan of Treatment Not on file documented as of this encounter Visit Diagnoses Not on filedocumented in this encounter
--- OUTSIDE RECORDS SUMMARY | 2024-02-03 07:56 | XMS_ITS | Referral Summary ---
Author Name Unknown Organization [facility] Address [address] [place] [address] Care Team Providers Care Pot Filler Name Role Phone Unavailable Primary Care Provider Unavailabl e Source Comments Patient records contain information from all sites at [facility]. For routine questions regarding patient records, call [phone] during business hours, M-F 8:00 AM - 5:00 PM Central Time. Record requests for emergency care only can be directed to [phone] at any time.[facility] Encounters Date Type Department Care Team Description 01/21/2024 8:15 AM CDT - 01/21/2024 4:24 PM CDT Hospital Encounter Department of Radiation Oncology in [address] [address] Saman Morfin M.D. Marginal Zone Lymphoma Jona (HCC) 01/21/2024 8:15 AM CDT Hospital Encounter Department of Radiation Oncology in [address] [address] Saman Morfin M.D. 01/20/2024 8:10 AM CDT Hospital Encounter Department of Radiation Oncology in [address] [address] Saman Morfin M.D. 01/17/2024 8:17 AM CDT - 01/17/2024 10:12 AM CDT Hospital Encounter Department of Radiation Oncology in [address] [address] Saman Morfin M.D. Buskirk, Steven J, M.D. Marginal Zone Lymphoma Jona (HCC) 01/17/2024 8:17 AM CDT Hospital Encounter Department of Radiation Oncology in [address] [address] Saman Morfin M.D. 01/16/2024 8:01 AM CDT Hospital Encounter Department of Radiation Oncology in [address] [address] Saman Morfin M.D. 01/15/2024 8:14 AM CDT Hospital Encounter Department of Radiation Oncology in [address] [address] Saman Morfin M.D. 01/14/2024 7:59 AM CDT Hospital Encounter Department of Radiation Oncology in [address] [address] Saman Morfin M.D. 01/13/2024 12:24 PM CDT Hospital Encounter Department of Radiation Oncology in [address] [address] Saman Morfin M.D. 01/10/2024 10:13 AM CDT - 01/10/2024 11:50 AM CDT Hospital Encounter Department of Radiation Oncology in [address] [address] Saman Morfin M.D. Grieman, Kari A, R.N. Marginal Zone Lymphoma Jona (HCC) Discharge Disposition: Home or Self Care 01/10/2024 10:13 AM CDT Hospital Encounter Department of Radiation Oncology in [address] [address] Saman Morfin M.D. 01/09/2024 Documentation Department of Radiation Oncology in [address] [address] Pilar Sinhg RMaría ElenaNMaría Elena 01/09/2024 8:25 AM CDT Hospital Encounter Department of Radiation Oncology in [address] [address] Saman Morfin M.D. 01/08/2024 8:07 AM CDT - 01/08/2024 6:24 PM CDT Hospital Encounter Department of Radiation Oncology in [address] [address] Saman Morfin M.D. Swelling Knee Right (Primary Dx); Marginal Zone Lymphoma Jona (HCC) 01/08/2024 8:07 AM CDT Hospital Encounter Department of Radiation Oncology in [address] [address] Saman Morfin M.D. 01/07/2024 8:35 AM CDT Hospital Encounter Department of Radiation Oncology in [address] [address] Saman Morfin M.D. 01/06/2024 Clinical Communication Department of Radiation Oncology in [address] [address] Saman Morfin M.D. 01/06/2024 1:42 PM CDT Hospital Encounter Department of Radiation Oncology in [address] [address] Saman Morfin M.D. 12/25/2023 11:15 AM INDUSTRIAL SAFETY ENGINEER - 12/25/2023 1:42 PM INDUSTRIAL SAFETY ENGINEER Hospital Encounter Department of Radiation Oncology in [address] [address] Saman Morfin M.D. Marginal Zone Lymphoma Jona (HCC) 12/13/2023 8:38 AM INDUSTRIAL SAFETY ENGINEER - 12/13/2023 10:26 AM INDUSTRIAL SAFETY ENGINEER Hospital Encounter Department of Radiation Oncology in [address] [address] Saman Morfin M.D. Marginal Zone Lymphoma Jona (HCC) (Primary Dx) 12/10/2023 Orders Only Department of Radiation Oncology in [address] [address] Meaghan Vasquez, RODERICK, C.N.P., D.N.P. Marginal Zone Lymphoma Jona (HCC) (Primary Dx) from Last 3 Months Allergies Active Allergy Reactions Criticality Noted Date Comments Penicillins Other (see comments) 10/01/2011 Medications Medication Sig Dispensed Refills Start Date End Date Status acetaminophen (TYLENOL) 325 mg tablet Take 325 mg by mouth every 4 (four) hours as needed for pain. Active mometasone (ELOCON) 0.1 % cream Apply 1 Application topically as directed. Apply to left groin twice daily starting on the 1st day of radiation treatment. Continue for 10 days following the completion of radiation treatment. 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 Utilities Answer Date Recorded In the past 12 months has [employer], gas, oil, or water [employer] threatened to shut off services in your [...] your living situation today? I have a [facility] place to live 01/05/2024 Sex and Gender Information Value Date Recorded Sex Assigned at Male 01/05/2024 12:37 PM CDT Gender Identity Male 01/05/2024 12:37 PM CDT Sexual Orientation Straight 01/05/2024 12 :37 PM CDT Last Filed Vital Signs Vital Sign Reading Time Taken Comments Blood Pressure 167/96 01/17/2024 8:42 AM CDT Pulse 78 01/17/2024 8:42 AM CDT Temperature 36.4 ??C (97.5 ??F) 01/21/2024 8:45 AM CD T Respiratory Rate - - Oxygen Saturation - - Inhaled Oxygen Concentration - - Weight 82.1 kg (181 lb) 01/21/2024 8:45 AM CDT Height - - Body Mass Index - - Plan of Treatment Not on file Procedures Procedure Name Priority Date/Time Associated Diagnosis Comments ARIA DAILY TREATMENT INFORMATION Routine 01/21/2024 8:37 AM CDT ARIA DAILY TREATMENT INFORMATION Routine 01/20/2024 8:27 AM CDT ARIA DAILY TREATMENT INFORMATION Routine 01/17/2024 8:32 AM CDT ARIA DAILY TREATMENT INFORMATION Routine 01/16/2024 8:40 AM CDT ARIA DAILY TREATMENT INFORMATION Routine 01/15/2024 8:29 AM CDT ARIA DAILY TREATMENT INFORMATION Routine 01/14/2024 8:53 AM CDT ARIA DAILY TREATMENT INFORMATION Routine 01/13/2024 1:13 PM CDT ARIA DAILY TREATMENT INFORMATION Routine 01/10/2024 10:[address] MSK Routine 01/09/2024 9:55 AM CDT ARIA DAILY TREATMENT INFORMATION Routine 01/09/2024 8:47 AM CDT ARIA DAILY TREATMENT INFORMATION Routine 01/08/2024 8:22 AM CDT ARIA DAILY TREATMENT INFORMATION Routine 01/07/2024 9:08 AM CDT ARIA DAILY TREATMENT INFORMATION Routine 01/06/2024 2:28 PM CDT INITIAL RAD ONC TREATMENT PLANNING CT SIMULATION Routine 12/25/2023 11:15 AM INDUSTRIAL SAFETY ENGINEER Marginal Zone Lymphoma Jona (HCC) OUTSIDE CT BODY Routine 11/21/2023 3:45 PM INDUSTRIAL SAFETY ENGINEER OUTSIDE NM PET Routine 11/06/2023 9:45 AM INDUSTRIAL SAFETY ENGINEER from Last 3 Months Results * Aria Daily Treatment Information (01/21/2024 8:37 AM CDT) Only the most recent of12 resultswithin the time period is included. Course ID [id number] l CORTEZ ARIA Course Start Date 4 09:19 CDT CORTEZ ARIA First Treatment Date 4 14:26 CDT CORTEZ ARIA Last Treatment Date 4 08:37 CDT CORTEZ ARIA Treatment Elapsed Days 15 CORTEZ ARIA Reference Point [id number] CORTEZ ARIA Dosage Given to Date cGy 2400 CORTEZ ARIA Session Dosage Given 200 CORTEZ ARIA Plan ID [id number] CORTEZ ARIA Fractions Treated to Date 12 CORTEZ ARIA Planned Total Fractions 12 CORTEZ ARIA Prescribed Dose Per Fraction 200 CORTEZ ARIA Prescription Dose in cGy 2400 CORTEZ ARIA Plan Primary Reference Point [id number] [facility] 01/21/2024 8:37 AM CDT Provider Not In System RADIATION ONCOLOG Y ORDERABLES Performing Organization Address [facility] Phone Number DANA sahu * CT knee RT w con-Outside CT MSK (01/09/2024 9:55 AM CDT) 01/09/2024 9:54 AM CDT Narrative IIHI - 01/09/2024 1:40 PM CDT This order has been created and auto-finalized to support the import of outside images. If available, original interpretation can be found on the Media Tab in Chart Review, in Document Viewer, or as an image in QREADS. If a re-interpretation or overread is required please follow defined workflow. ?? Provider Not In System IMG CT PROCEDURES Performing Organization Address [facility] Phone Number RENETTA SAHU * Initial Rad Onc Treatment Planning CT Simulation (12/25/2023 11:15 AM INDUSTRIAL SAFETY ENGINEER) Narrative DANA MURPHY - 12/25/2023 11:15 AM INDUSTRIAL SAFETY ENGINEER Roger, Alize Alves, RTT ? 12/25/2023 12:39 PM Initial Rad Onc Treatment Planning CT Simulation Performed by: Saman Morfin M.D. Authorized by: Saman Morfin M.D. ?? Saman Morfin M.D. RADIATION ONCOLOGY ORDERABLES Performing Organization Address [facility] de Phone Number DANA sahu * CT ABDOMEN PELVIS WO CON-Outside CT Body (11/21/2023 3:45 PM INDUSTRIAL SAFETY ENGINEER) Narrative [facility] - 12/09/2023 4:14 PM INDUSTRIAL SAFETY ENGINEER This order has been created and auto-finalized to support the import of outside images. If available, original interpretation can be found on the Media Tab in Chart Review, in Document Viewer, or as an image in QREADS. If a re-interpretation or overread is required please follow defined workflow. ?? Provider Not In System IMG CT PROCEDURES Performing Organization Address [facility] [address]/ZIP Co de Phone Number IIMS NA * PET/CT SKULL TO THIGH-Outside NM Pet (11/06/2023 9:45 AM INDUSTRIAL SAFETY ENGINEER) Narrative II - 12/10/2023 10:12 AM INDUSTRIAL SAFETY ENGINEER This order has been created and auto-finalized to support the import of outside images. If available, original interpretation can be found on the Media Tab in Chart Review, in Document Viewer, or as an image in QREADS. If a re-interpretation or overread is required please follow defined workflow. ?? Provider Not In System IMG NM PROCEDURES Performing Organization Address [facility] [address]/[facility] de Phone Number IIMS NA from Last 3 Months
--- OUTSIDE RECORDS SUMMARY | 2024-02-03 07:56 | XMS_ITS | Encounter Summary ---
Author Name Unknown Organization [facility] Address [address] [place] [address] Care Team Providers Care Tool Repairer Bench Name Role Phone Unavailable Primary Care Provider Unavailabl e Reason for Referral * Radiation Therapy (Routine) - Closed Specialty Diagnoses / Procedures Referred By Jeramy casillas Referred To Contact Diagnoses Marginal Zone Lymphoma Jona (HCC) Procedures Initial Rad Onc Treatment Planning CT Simulation Saman Morfin M.D. [address] [place] [address] [facility] Region Referral ID Status Reason Start Date Expiration Date Visits Re quested Visits Authorized [id number] Closed 12/10/2023 12/09/2024 1 1 TECHNOLOGIST Reason for Visit * Radiation Therapy (Routine) - Closed Specialty Diagnoses / Procedures Referred By Jeramy casillas Referred To Contact Diagnoses Marginal Zone Lymphoma Jona (HCC) Procedures Initial Rad Onc Treatment Planning CT Simulation Saman Morfin M.D. [address] [place] [address] [facility] Region Referral ID Status Reason Start Date Expiration Date Visits Re quested Visits Authorized [id number] Closed 12/10/2023 12/09/2024 1 1 Encounter Details Date Type Department Care Team (Latest Contact Info) Description 12/25/2023 11:15 AM FISH TECHNOLOGIST - 12/25/2023 1:42 PM FISH TECHNOLOGIST Hospital Encounter Department of Radiation Oncology in [place], [place] [address] [place] [address] Saman Morfin M.D. [address] [place] [phone] Marginal Zone Lymphoma Jona (HCC) Social History Tobacco Use Types Packs/Day Years Used Date Smoking Tobacco: Never Smokeless Tobacco: Never Alcohol Use Standard Drinks/Week Comments Not Currently 0 (1 standard drink = 0.6 oz pur e alcohol) Nutrition Answer Date Recorded Nutrition: EVOO Fat Source Unknown 10/29 Nutrition: Servings of Fruits/Vegetables per Day Not on file 10/29/2023 Dental Answer Date Recorded Dental: Regular Dentist Unknown 10/29/19 Sex and Gender Information Value Date Recorded Sex Assigned at Male 01/05/2024 12:37 PM CDT Gender Identity Male 01/05/2024 12:37 PM CDT Sexual Orientation Straight 01/05/2024 12 :37 PM CDT documented as of this encounter Medications at Time of Discharge Medication Sig Dispensed Refills Start Date End Date acetaminophen (TYLENOL) 325 mg tablet Take 325 mg by mouth every 4 (four) hours as needed for pain. mometasone (ELOCON) 0.1 % cream Apply 1 Application topically as directed. Apply to left groin twice daily starting on the 1st day of radiation treatment. Continue for 10 days following the completion of radiation treatment. 45 g 1 01/05/2024 documented as of this encounter Procedure Notes * Code, Alize Alves, RTT - 12/25/2023 11:15 AM CSTAssociated Order(s): Initial Rad Onc Treatment Planning CT Simulation Pre-Procedure Diagnose(s): Marginal Zone Lymphoma Jona (HCC) Post-Procedure Diagnose(s): Marginal Zone Lymphoma Jona (HCC) Initial Rad Onc Treatment Planning CT Simulation Performed by: Saman Morfin M.D. Authorized by: Saman Morfin M.D. Simulation was performed under physician supervision based on physician order in preparation for radiation therapy. Physician was immediately available to provide assistance and direction throughout the procedure. Written consent for treatment was completed or confirmed. The patient was appropriately identified and placed in the treatment position using the necessary immobilization to ensure a reproducible treatment position. Reference shea were placed to facilitate marking of isocenter. Area scanned:Pelvis Contrast used for the simulation procedure: None Patient position:head first supine Custom immobilization: Vac-shira Motion management: None Bolus: No CT guidance: Following positioning of the patient, a series of slices was obtained to be utilized in treatment planning. CT images were transferred to the [employer] treatment planning system, after a reference isocenter was determined and marked. Segmentation and treatment planning will take place prior to treatment delivery. Patient set up and imaging was appropriate and completed without incident. Supercharger Mechanic use:No TECHNOLOGIST Associated attestation - Saman Morfin M.D. - 12/25/2023 1:41 PM FISH TECHNOLOGIST I was available for the entirety of the procedure but only present for set up review and image review. Signed by: Saman Morfin M.D. 12/25/23 1:41 PM FISH TECHNOLOGIST [facility] Radiation Therapy [facility] documented in this encounter Plan of Treatment Not on file documented as of this encounter Procedures Procedure Name Priority Date/Time Associated Diagnosis Comments INITIAL RAD ONC TREATMENT PLANNING CT SIMULATION Routine 12/25/2023 11:15 AM FISH TECHNOLOGIST Marginal Zone Lymphoma Jona (HCC) documented in this encounter Results * Initial Rad Onc Treatment Planning CT Simulation (12/25/2023 11:15 AM FISH TECHNOLOGIST) Narrative [place] JEFFREY - 12/25/2023 11:15 AM FISH TECHNOLOGIST Alize Duran RTT ? 12/25/2023 12:39 PM Initial Rad Onc Treatment Planning CT Simulation Performed by: Saman Morfin M.D. Authorized by: Saman Morfin M.D. ?? Saman Morfin M.D. RADIATION ONCOLOGY ORDERABLES [place] JEFFREY na documented in this encounter Visit Diagnoses Diagnosis Marginal Zone Lymphoma Jona (HCC) documented in this encounter
--- OUTSIDE RECORDS SUMMARY | 2024-02-03 07:56 | XMS_ITS | Encounter Summary ---
Author Name Unknown Organization [facility] Address [address] [place] [address] Care Team Providers Care Checker And Packer Name Role Phone Unavailable Primary Care Provider Unavailabl e Encounter Details Date Type Department Care Team (Late st Contact Info) Description 01/09/2024 Documentation Department of Radiation Oncology in [place], [place] [address] [place] [address] Pilar Singh R.N. [address] [place] [phone] Social History Tobacco Use Types Packs/Day Years Used Date Smoking Tobacco: Never Smokeless Tobacco: Never Alcohol Use Standard Drinks/Week Comments Not Currently 0 (1 standard drink = 0.6 oz pur e alcohol) [facility] Utilities Answer Date Recorded In the past [...] your living situation today? I have a [facility] place to live 01/05/2024 Sex and Gender Information Value Date Recorded Sex Assigned at Male 01/05/2024 12:37 PM CDT Gender Identity Male 01/05/2024 12:37 PM CDT Sexual Orientation Straight 01/05/2024 12 :37 PM CDT documented as of this encounter Progress Notes * Pilar Singh, R.N. - 01/09/2024 2:34 PM CDT Encounter entered in error documented in this encounter Plan of Treatment Not on file documented as of this encounter Visit Diagnoses Not on filedocumented in this encounter
--- OUTSIDE RECORDS SUMMARY | 2024-02-03 07:56 | XMS_ITS | Encounter Summary ---
Author Name Unknown Organization [facility] Address [address] [place] [address] Care Team Providers Care Dewatering Filtering Supervisor Name Role Phone Unavailable Primary Care Provider Unavailabl e Reason for Visit * Radiation Therapy (Routine) - Closed Specialty Diagnoses / Procedures Referred By Contac t Referred To Contact Diagnoses Marginal Zone Lymphoma Jona (HCC) Procedures Prior Auth Rad Tx [place] RADTN [place] DEL >=1 MEV COMPLEX 3D Saman Morfin M.D. [address] [place] [phone] [facility] Referral ID Status Reason Start Date Expiration Date Visits Re quested Visits Authorized [id number] Closed 12/23/2023 12/09/2024 12 12 Encounter Details Date Type Department Care Team (Late st Contact Info) Description 01/20/2024 8:10 AM CDT Hospital Encounter Department of Radiation Oncology in [place], [place] [address] [place] [phone] Saman Morfin M.D. [address] [place] [phone] Social History Tobacco Use Types Packs/Day Years Used Date Smoking Tobacco: Never Smokeless Tobacco: Never Alcohol Use Standard Drinks/Week Comments Not Currently 0 (1 standard drink = 0.6 oz pur e alcohol) [facility] Utilities Answer Date Recorded In the [...] money to buy more. Never true 01/05/20 Within the past 12 months, t he [...] your living situation today? I have a [facility] place to live 01/05/2024 Sex and Gender Information Value Date Recorded Sex Assigned at Male 01/05/2024 12:37 PM CDT Gender Identity Male 01/05/2024 12:37 PM CDT Sexual Orientation Straight 01/05/2024 12 :37 PM CDT documented as of this encounter Plan of Treatment Not on file documented as of this encounter Visit Diagnoses Not on filedocumented in this encounter
--- OUTSIDE RECORDS SUMMARY | 2024-02-03 07:56 | XMS_ITS | Encounter Summary ---
Author Name Unknown Organization [facility] Address [address] [place] [address] Care Team Providers Care Turning Sander Tender Name Role Phone Unavailable Primary Care Provider Unavailabl e Reason for Visit * Radiation Therapy (Routine) - Closed Specialty Diagnoses / Procedures Referred By Contac t Referred To Contact Diagnoses Marginal Zone Lymphoma Jona (HCC) Procedures Prior Auth Rad Tx [place] RADTN [place] DEL >=1 MEV COMPLEX 3D Saman Morfin M.D. [address] [place] [phone] [facility] Referral ID Status Reason Start Date Expiration Date Visits Re quested Visits Authorized [id number] Closed 12/23/2023 12/09/2024 12 12 Encounter Details Date Type Department Care Team (Late st Contact Info) Description 01/16/2024 8:01 AM CDT Hospital Encounter Department of Radiation Oncology in [place], [place] [address] [place] [phone] Saman Morfin M.D. [address] [place] [phone] Social History Tobacco Use Types Packs/Day Years Used Date Smoking Tobacco: Never Smokeless Tobacco: Never Alcohol Use Standard Drinks/Week Comments Not Currently 0 (1 standard drink = 0.6 oz pur e alcohol) [facility] Utilities Answer Date Recorded In the [...] your living situation today? I have a [facility] place to live 01/05/2024 Sex and [...]
--- OUTSIDE RECORDS SUMMARY | 2024-02-03 07:56 | XMS_ITS ---
Author Name Unknown Organization [facility] Address [address] [place] [address] Care Team Providers Care Morphologist Name Role Phone Unavailable Unavailable Unavailable Surgery Details Not on file Complications Check Surgery Details section. Procedure Estimated Blood Loss Check Surgery Details section. Procedure Findings Check Surgery Details section. Procedure Specimens Taken Check Surgery Details section.
--- OUTSIDE RECORDS SUMMARY | 2024-02-03 07:56 | XMS_ITS | Encounter Summary ---
Author Name Unknown Organization [facility] Address [address] [place] [address] Care Team Providers Care Wafer Polishing Worker Name Role Phone Unavailable Primary Care Provider Unavailabl e Reason for Visit * Radiation Therapy (Routine) - Closed Specialty Diagnoses / Procedures Referred By Contac t Referred To Contact Diagnoses Marginal Zone Lymphoma Jona (HCC) Procedures Prior Auth Rad Tx [place] RADTN [place] DEL >=1 MEV COMPLEX 3D Saman Morfin M.D. [address] [place] [phone] [facility] Referral ID Status Reason Start Date Expiration Date Visits Re quested Visits Authorized [id number] Closed 12/23/2023 12/09/2024 12 12 Encounter Details Date Type Department Care Team (Late st Contact Info) Description 01/21/2024 8:15 AM CDT Hospital Encounter Department of Radiation Oncology in [place], [place] [address] [place] [phone] Saman Morfin M.D. [address] [place] [phone] Social History Tobacco Use Types Packs/Day Years Used Date Smoking Tobacco: Never Smokeless Tobacco: Never Alcohol Use Standard Drinks/Week Comments Not Currently 0 (1 standard drink = 0.6 oz pur e alcohol) [facility] Utilities Answer Date Recorded In the [...] your living situation today? I have a [facility] place to live 01/05/2024 Sex and [...]
--- OUTSIDE RECORDS SUMMARY | 2024-02-03 07:56 | XMS_ITS | Encounter Summary ---
Author Name Unknown Organization [facility] Address [address] [place] [address] Care Team Providers Care Soil Conservation Teacher Name Role Phone Unavailable Primary Care Provider Unavailabl e Reason for Visit * Radiation Therapy (Routine) - Closed Specialty Diagnoses / Procedures Referred By Contac t Referred To Contact Diagnoses Marginal Zone Lymphoma Jona (HCC) Procedures Prior Auth Rad Tx [place] RADTN [place] DEL >=1 MEV COMPLEX 3D Saman Morfin M.D. [address] [place] [phone] [facility] Referral ID Status Reason Start Date Expiration Date Visits Re quested Visits Authorized [id number] Closed 12/23/2023 12/09/2024 12 12 Encounter Details Date Type Department Care Team (Late st Contact Info) Description 01/06/2024 1:42 PM CDT Hospital Encounter Department of Radiation Oncology in [place], [place] [address] [place] [phone] Saman Morfin M.D. [address] [place] [phone] Social History Tobacco Use Types Packs/Day Years Used Date Smoking Tobacco: Never Smokeless Tobacco: Never Alcohol Use Standard Drinks/Week Comments Not Currently 0 (1 standard drink = 0.6 oz pur e alcohol) [facility] Utilities Answer Date Recorded In the past [...] your living situation today? I have a [facility] place [facility] live 01/05/2024 Sex [...]
--- OUTSIDE RECORDS SUMMARY | 2024-02-03 07:56 | XMS_ITS | Encounter Summary ---
Author Name Unknown Organization [facility] Address [address] [place] [address] Care Team Providers Care Critical Care Nurse Name Role Phone Unavailable Primary Care Provider Unavailabl e Reason for Referral * Radiation Therapy (Routine) - Authorized Specialty Diagnoses / Procedures Referred By Contac t Referred To Contact Diagnoses Marginal Zone Lymphoma Jona (HCC) Procedures Management Visit Saman Morfin M.D. [address] [place] [phone] [facility] Region Referral ID Status Reason Start Date Expiration Date V isits Requested Visits Authorized [id number] Authorized 12/10/2023 12/09/2024 10 10 Reason for Visit * Radiation Therapy (Routine) - Authorized Specialty Diagnoses / Procedures Referred By Jeramy casillas Referred To Contact Diagnoses Marginal Zone Lymphoma Jona (HCC) Procedures Management Visit Saman Morfin M.D. [address] [place] [phone] [facility] Region Referral ID Status Reason Start Date Expiration Date V isits Requested Visits Authorized [id number] Authorized 12/10/2023 12/09/2024 10 10 Encounter Details Date Type Department Care Team (Latest Contact Info) Description 01/17/2024 8:17 AM CDT - 01/17/2024 10:12 AM CDT Hospital Encounter Department of Radiation Oncology in [place], [place] [address] [place] [phone] Saman Morfin M.D. [address] [place] [phone] Won Sanches M.D. [address] [place] [address] Marginal Zone Lymphoma Jona (HCC) Social History Tobacco Use Types Packs/Day Years Used Date Smoking Tobacco: Never Smokeless Tobacco: Never Alcohol Use Standard Drinks/Week Comments Not Currently 0 (1 standard drink = 0.6 oz pur e alcohol) [facility] Utilities Answer Date Recorded In the past 12 months has e [employer], gas, oil, or water [employer] threatened to shut off services in your [...] your living situation today? I have a [facility] place to live 01/05/2024 Sex and Gender Information Value Date Recorded Sex Assigned at Male 01/05/2024 12:37 PM CDT Gender Identity Male 01/05/2024 12:37 PM CDT Sexual Orientation Straight 01/05/2024 12 :37 PM CDT documented as of this encounter Last Filed Vital Signs Vital Sign Reading Time Taken Comments Blood Pressure 167/96 01/17/2024 8:42 AM CDT Pulse 78 01/17/2024 8:42 AM CDT Temperature 36.2 ??C (97.1 ??F) 01/17/2024 8:42 AM CD T Respiratory Rate - - Oxygen Saturation - - Inhaled Oxygen Concentration - - Weight 82.5 kg (181 lb 14.1 oz) 01/17/2024 8:42 AM CDT Height - - Body Mass Index - - documented in this encounter Medications at Time of Discharge [...] 1 01/05/2024 documented as of this encounter Progress Notes * Won Sanches M.D. - 01/17/2024 8:45 AM CDT REASON FOR VISIT Evaluation for side effects while receiving radiation treatment for 1. Marginal Zone Lymphoma Jona (HCC) SUPERVISED BY: Dr. Sanches HISTORY OF PRESENT ILLNESS Esau Nelson is a 58 y.o. 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 He underwent excisional biopsy on October 28, 2023. He is now undergoing radiation therapy to theleft inguinal and external iliac region. Treatment Course: 1xInguinal Plan ID Fractions Dose / Fraction (cGy) Dose Treated (cGy) Dose Planned (cGy) First Treatment Last Treatment Elapsed Days [id number] [id number] 01/06/2024 01/17/2024 11 Course Summary 01/06/2024 01/17/2024 11 The patient was seen and examined today with Dr. Sanches. The patient reports that he is doing well. He is applying mometasone twice a day to the treatment field area waiting at least 20 minutes and then lotion twice a day. Patient denies dysuria, diarrhea,hematuria, rectal bleeding, nausea, vomiting, fevers or chills. PATIENT REPORTED SYMPTOM SCREEN FATIGUE (Scale: 0 = no fatigue; 10 = worst fatigue you can imagine): 2 PAIN (Scale: 0 = no pain; 10 = worst pain you can imagine): 2 OVERALL QUALITY OF LIFE (Scale: 0 = as bad as can be; 10 = as good as can be): 7 OBJECTIVE BP (!) 167/96 (BP Location: Right arm, Patient Position: Sitting, Cuff Size: Regular) Pulse 78 Temp 36.2 ??C (Temporal) Wt 82.5 kg PHYSICAL EXAM General: Alert and oriented in no apparent distress. 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 Patient will continue with his current skin care routine. Dr. Morfin ordered lymphedema evaluation and therapy at [facility] post completion of radiotherapy. He will contact us with any questions or concerns. We will continue with radiation treatment as planned. Signed by: Lisa Calles R.N. 01/17/2024 9:49 AM CDT I have reviewed the patient???s history and physical examination as detailed above. I have personally evaluated the patient. We have discussed the patient???s care in detail and I agree with Ms. Calles's assessment and recommendations. Won Sanches M.D. documented in this encounter Plan of Treatment Scheduled Orders Name Type Priority Associated Diagnoses Orde r Schedule Management Visit Radiation Oncology Routine Marginal Zone Lymphoma Jona (HCC) Once for 1 Occurrences starting 01/17/2024 until 01/17/2024 documented as of this encounter Visit Diagnoses Diagnosis Marginal Zone Lymphoma Jona (HCC) documented in this encounter
--- OUTSIDE RECORDS SUMMARY | 2024-02-03 07:56 | XMS_ITS | Encounter Summary ---
Author Name Unknown Organization [facility] Address [address] [place] [address] Care Team Providers Care Fruit Picker Name Role Phone Unavailable Primary Care Provider Unavailabl e Reason for Visit * Radiation Therapy (Routine) - Closed Specialty Diagnoses / Procedures Referred By Contac t Referred To Contact Diagnoses Marginal Zone Lymphoma Jona (HCC) Procedures Prior Auth Rad Tx [place] RADTN [place] DEL >=1 MEV COMPLEX 3D Saman Morfin M.D. [address] [place] [phone] [facility] Referral ID Status Reason Start Date Expiration Date Visits Re quested Visits Authorized [id number] Closed 12/23/2023 12/09/2024 12 12 Encounter Details Date Type Department Care Team (Late st Contact Info) Description 01/15/2024 8:14 AM CDT Hospital Encounter Department of Radiation Oncology in [place], [place] [address] [place] [phone] Saman Morfin M.D. [address] [place] [phone] Social History Tobacco Use Types Packs/Day [...] your living situation today? I have a [facility] place to live 01/05/2024 Sex [...]
--- OUTSIDE RECORDS SUMMARY | 2024-02-03 07:56 | XMS_ITS | Encounter Summary ---
Author Name Unknown Organization [facility] Address [address] [place] [address] Care Team Providers Care Percussion Instrument Tuner Name Role Phone Unavailable Primary Care Provider Unavailabl e Reason for Visit * Radiation Therapy (Routine) - Closed Specialty Diagnoses / Procedures Referred By Contac t Referred To Contact Diagnoses Marginal Zone Lymphoma Jona (HCC) Procedures Prior Auth Rad Tx [place] RADTN [place] DEL >=1 MEV COMPLEX 3D Saman Morfin M.D. [address] [place] [phone] [facility] Referral ID Status Reason Start Date Expiration Date Visits Re quested Visits Authorized [id number] Closed 12/23/2023 12/09/2024 12 12 Encounter Details Date Type Department Care Team (Late st Contact Info) Description 01/07/2024 8:35 AM CDT Hospital Encounter Department of Radiation Oncology in [place], [place] [address] [place] [phone] Saman Morfin M.D. [address] [place] [phone] Social History Tobacco Use Types Packs/Day Years Used Date Smoking Tobacco: Never Smokeless Tobacco: Never Alcohol Use Standard Drinks/Week Comments Not Currently 0 (1 standard drink = 0.6 oz pur e alcohol) [facility] Utilities Answer Date Recorded In the [...] your living situation today? I have a [facility] place to live 01/05/2024 Sex and [...]
--- OUTSIDE RECORDS SUMMARY | 2024-02-03 07:56 | XMS_ITS | Encounter Summary ---
Author Name Unknown Organization [facility] Address [address] [place] [address] Care Team Providers Care Bullet Lubricant Mixer Name Role Phone Unavailable Primary Care Provider Unavailabl e Reason for Visit * Radiation Therapy (Routine) - Closed Specialty Diagnoses / Procedures Referred By Contac t Referred To Contact Diagnoses Marginal Zone Lymphoma Jona (HCC) Procedures Prior Auth Rad Tx [place] RADTN [place] DEL >=1 MEV COMPLEX 3D Saman Morfin M.D. [address] [place] [phone] [facility] Referral ID Status Reason Start Date Expiration Date Visits Re quested Visits Authorized [id number] Closed 12/23/2023 12/09/2024 12 12 Encounter Details Date Type Department Care Team (Late st Contact Info) Description 01/08/2024 8:07 AM CDT Hospital Encounter Department of Radiation Oncology in [place], [place] [address] [place] [phone] Saman Morfin M.D. [address] [place] [phone] Social History Tobacco Use Types Packs/Day Years Used Date Smoking Tobacco: Never Smokeless Tobacco: Never Alcohol Use Standard Drinks/Week Comments Not Currently 0 (1 standard drink = 0.6 oz pur e alcohol) [facility] Utilities Answer Date Recorded In the [...] your living situation today? I have a [facility] place to live 01/05/2024 Sex [...]
--- OUTSIDE RECORDS SUMMARY | 2024-02-03 07:56 | XMS_ITS | Encounter Summary ---
Author Name Unknown Organization [facility] Address [address] [place] [address] Care Team Providers Care Yarn Finisher Name Role Phone Unavailable Primary Care Provider Unavailabl e Reason for Visit * Radiation Therapy (Routine) - Closed Specialty Diagnoses / Procedures Referred By Contac t Referred To Contact Diagnoses Marginal Zone Lymphoma Jona (HCC) Procedures Prior Auth Rad Tx [place] RADTN [place] DEL >=1 MEV COMPLEX 3D Saman Morfin M.D. [address] [place] [phone] [facility] Referral ID Status Reason Start Date Expiration Date Visits Re quested Visits Authorized [id number] Closed 12/23/2023 12/09/2024 12 12 Encounter Details Date Type Department Care Team (Late st Contact Info) Description 01/10/2024 10:13 AM CDT Hospital Encounter Department of Radiation Oncology in [place], [place] [address] [place] [phone] Saman Morfin M.D. [address] [place] [phone] Social History Tobacco Use Types Packs/Day Years Used Date Smoking Tobacco: Never Smokeless Tobacco: Never Alcohol Use Standard Drinks/Week Comments Not Currently 0 (1 standard drink = 0.6 oz pur e alcohol) [facility] Utilities Answer Date Recorded In the [...] your living situation today? I have a [facility] place to live 01/05/2024 Sex and [...]
--- OUTSIDE RECORDS SUMMARY | 2024-02-03 07:56 | XMS_ITS | Encounter Summary ---
Author Name Unknown Organization [facility] Address [address] [place] [address] Care Team Providers Care Shift Foreman Name Role Phone Unavailable Primary Care Provider Unavailabl e Reason for Visit * Radiation Therapy (Routine) - Closed Specialty Diagnoses / Procedures Referred By Contac t Referred To Contact Diagnoses Marginal Zone Lymphoma Jona (HCC) Procedures Prior Auth Rad Tx [place] RADTN [place] DEL >=1 MEV COMPLEX 3D Saman Morfin M.D. [address] [place] [phone] [facility] Referral ID Status Reason Start Date Expiration Date Visits Re quested Visits Authorized [id number] Closed 12/23/2023 12/09/2024 12 12 Encounter Details Date Type Department Care Team (Late st Contact Info) Description 01/14/2024 7:59 AM CDT Hospital Encounter Department of Radiation Oncology in [place], [place] [address] [place] [phone] Saman Morfin M.D. [address] [place] [phone] Social History Tobacco Use Types Packs/Day Years Used Date Smoking Tobacco: Never Smokeless Tobacco: Never Alcohol Use Standard Drinks/Week Comments Not Currently 0 (1 standard drink = 0.6 oz pur e alcohol) [facility] Utilities Answer Date Recorded In the past [...] your living situation today? I have a [facility] place to live 01/05/2024 Sex and [...]
--- OUTSIDE RECORDS SUMMARY | 2024-02-03 07:56 | XMS_ITS | Encounter Summary ---
Author Name Unknown Organization [facility] Address [address] [place] [address] Care Team Providers Care Office Machines Sales Representative Name Role Phone Unavailable Primary Care Provider Unavailabl e Reason for Referral * Specialty Diagnoses / Procedures Referred By Jeramy t Referred To Contact Meaghan Vasquez APRN, C.N.P., D.N.P. [address] [place] [phone] [facility] Region Referral ID Status Reason Start Date Expiration Date Visits Re quested Visits Authorized Encounter Details Date Type Department Care Team (Latest Contact Info) Description 01/10/2024 10:13 AM CDT - 01/10/2024 11:50 AM CDT Hospital Encounter Department of Radiation Oncology in [place], [place] [address] [place] [phone] Saman Morfin M.D. [address] [place] [phone] Lisa Calles [employer] [address] [place] [phone] Marginal Zone Lymphoma Jona (HCC) Discharge Disposition: Home or Self Care Social History Tobacco Use Types Packs/Day Years Used Date Smoking Tobacco: Never Smokeless Tobacco: Never Alcohol Use Standard Drinks/Week Comments Not Currently 0 (1 standard drink = 0.6 oz pur e alcohol) [facility] Utilities Answer Date Recorded In the [...] your living situation today? I have a [facility] place to live 01/05/2024 Sex and [...] as of this encounter Progress Notes * Lisa Calles R.N. - 01/10/2024 11:15 AM CDT Patient was educated on side effects of radiation therapy. Their questions were answered to the best of my ability. The patient was encouraged to contact the team at any point, with questions or concerns. Patient completed CT of right knee with contrast at [facility] yesterday. Dr. Morfin hasreviewed results and notes CT was negative and no concerning findings were noted. I discussed this with patient today during nurse education visit. documented in this encounter Plan of Treatment Scheduled Referrals Name Type Priority Associated Diagnoses Order Schedule Radiation Oncology - Nurse education visit (clinic) Outpatient Referral Routine Marginal Zone Lymphoma Jona (HCC) Once for 1 Occurrences starting 01/10/2024 until 01/10/2024 documented as of this encounter Visit Diagnoses Diagnosis Marginal Zone Lymphoma Jona (HCC) documented in this encounter
--- OUTSIDE RECORDS SUMMARY | 2024-02-03 07:56 | XMS_ITS | Encounter Summary ---
Author Name Unknown Organization [facility] Address [address] [place] [address] Care Team Providers Care Leaf Fat Scraper Name Role Phone Unavailable Primary Care Provider Unavailabl e Reason for Referral * Radiation Therapy (Routine) - Authorized Specialty Diagnoses / Procedures Referred By Contac t Referred To Contact Diagnoses Marginal Zone Lymphoma Jona (HCC) Procedures Management Visit Saman Morfin M.D. [address] [place] [phone] [facility] Region Referral ID Status Reason Start Date Expiration Date V isits Requested Visits Authorized [id number] Authorized 12/10/2023 12/09/2024 10 10 Reason for Visit * Radiation Therapy (Routine) - Authorized Specialty Diagnoses / Procedures Referred By Jeramy casillas Referred To Contact Diagnoses Marginal Zone Lymphoma Jona (HCC) Procedures Management Visit Saman Morfin M.D. 200 [place] [phone] [facility] Region Referral ID Status Reason Start Date Expiration Date V isits Requested Visits Authorized [id number] Authorized 12/10/2023 12/09/2024 10 10 Encounter Details Date Type Department Care Team (Latest Contact Info) Description 01/08/2024 8:07 AM CDT - 01/08/2024 6:24 PM CDT Hospital Encounter Department of Radiation Oncology in [place], [place] [address] [place] [phone] Saman Morfin M.D. [address] [place] [phone] Swelling Knee Right (Primary Dx); Marginal Zone Lymphoma Jona (HCC) Social History Tobacco Use Types Packs/Day Years Used Date Smoking Tobacco: Never Smokeless Tobacco: Never Alcohol Use Standard Drinks/Week Comments Not Currently 0 (1 standard drink = 0.6 oz pur e alcohol) [facility] Utilities Answer Date Recorded In the past 12 months has th e electric, gas, oil, or water company [...] your living situation today? I have a [facility] place to live 01/05/2024 Sex and Gender Information Value Date Recorded Sex Assigned at Male 01/05/2024 12:37 PM CDT Gender Identity Male 01/05/2024 12:37 PM CDT Sexual Orientation Straight 01/05/2024 12 :37 PM CDT documented as of this encounter Last Filed Vital Signs Vital Sign Reading Time Taken Comments Blood Pressure 160/90 01/08/2024 8:28 AM CDT Pulse 81 01/08/2024 8:28 AM CDT Temperature 36.4 ??C (97.5 ??F) 01/08/2024 8:28 AM CD T Respiratory Rate - - Oxygen Saturation - - Inhaled Oxygen Concentration - - Weight 83.3 kg (183 lb 10.3 oz) 01/08/2024 8:28 AM CDT Height - - Body Mass [...] as of this encounter Progress Notes * Saman Morfin M.D. - 01/08/2024 8:45 AM CDT SUBJECTIVE REASON FOR VISIT Evaluation for side effects while receiving radiation treatment for 1. Marginal Zone Lymphoma Jona (HCC) SUPERVISED BY: Saman Morfin M.D. ([id number]) HISTORY OF PRESENT ILLNESS Esau Nelson is [...] (cGy) First Treatment Last Treatment Elapsed Days [id number] 01/06/2024 01/08/2024 2 Course Summary 01/06/2024 01/08/2024 2 The patient was seen and examined today with Dr. Morfin. The patient reports that he is doing well. He is applying mometasone twice a day to the treatment field area waiting at least 20 minutes and then lotion twice a day. Patient reports area of swelling behind right knee that developed this past September. Patient reports scattered areas of swelling near left hip region since diagnosis. Patient is asking about potential late term left leg swelling. Lidia puckett did hit left side of ribcage recently on side of hard chair. He does report 3 out of 10 pain to ribcage area. He takes Advil as needed and describes pain as positional in nature. PATIENT REPORTED SYMPTOM SCREEN FATIGUE (Scale: 0 = no fatigue; 10 = worst fatigue you can imagine): 2 PAIN (Scale: 0 = no pain; 10 = worst pain you can imagine): 3 OVERALL QUALITY OF LIFE (Scale: 0 = as bad as can be; 10 = as good as can be): 3 OBJECTIVE BP 160/90 (BP Location: Right arm, Patient Position: Sitting, Cuff Size: Regular) Pulse 81 Temp36.4 ??C (Temporal) Wt 83.3 kg PHYSICAL EXAM General: Alert and oriented [...] continue with his current skin care routine. Potential detention side effect of left leg swelling is a very low risk. Dr. Morfin has ordered for lymphedema evaluation and therapy at [facility] post completion of radiotherapy. Dr. Morfin has also ordered CT of right knee due to swelling that developed to this area in September. Dr. Sanchez will see patient this coming Saturday to follow up. He will contact us with any questions or concerns. We will continue with radiation treatment as planned. Signed by: Lisa Calles R.N. 01/08/2024 8:45 AM CDT I saw and evaluated the patient and participated in the blake portions of the service. I reviewed thedocumentation of Lisa Calles R.N. and agree with the findings and plan. The patient appears well on exam. He does report some swelling in his right popliteal fossa that he first noticed in 2022. He had a venous ultrasound of the right leg on October 25, 2023, but according to the report this only looked at his vasculature and not at any lymph node that might be present in this area. On exam, I palpate some swelling but no distinct node. [facility] in this area. We will also refer him to lymphedema Clinic for assessment and possible treatment left lower extremity lymphedema. He is tolerating treatment well. He will continue with treatment as planned. Signed by: Saman Morfin M.D. 01/08/2024 6:23 PM CDT [facility] [address] [place] [address] documented in this encounter Miscellaneous Notes * Addendum Note - Melissa Membreno, C.N.A. - 01/08/2024 8:45 AM CDTEncounter addended by: Melissa Membreno, C.N.A. on: 01/09/2024 9:06 AM Actions taken: Letter saved documented in this encounter Plan of Treatment Scheduled Orders Name Type Priority Associated Diagnoses Orde r Schedule Management Visit Radiation Oncology Routine Marginal Zone Lymphoma Jona (HCC) Once for 1 Occurrences starting 01/08/2024 until 01/08/2024 documented as of this encounter Visit Diagnoses Diagnosis Swelling Knee Right- Primary Marginal Zone Lymphoma Jona (HCC) documented in this encounter
--- OUTSIDE RECORDS SUMMARY | 2024-02-03 07:56 | XMS_ITS | Encounter Summary ---
Author Name Unknown Organization [facility] Address [address] [place] [address] Care Team Providers Care Painting Contractor Name Role Phone Unavailable Primary Care Provider Unavailabl e Reason for Referral * Radiation Therapy (Routine) - Authorized Specialty Diagnoses / Procedures Referred By Jeramy casillas Referred To Contact Diagnoses Marginal Zone Lymphoma Jona (HCC) Procedures Management Visit Saman Morfin M.D. [address] [place] [phone] [facility] Region Referral ID Status Reason Start Date Expiration Date V isits Requested Visits Authorized [id number] Authorized 12/10/2023 12/09/2024 10 10 Reason for Visit * Radiation Therapy (Routine) - Authorized Specialty Diagnoses / Procedures Referred By Jeramy casillas Referred To Contact Diagnoses Marginal Zone Lymphoma Jona (HCC) Procedures Management Visit Saman Morfin M.D. [address] [place] [phone] [facility] Region Referral ID Status Reason Start Date Expiration Date V isits Requested Visits Authorized [id number] Authorized 12/10/2023 12/09/2024 10 10 Encounter Details Date Type Department Care Team (Latest Contact Info) Description 01/21/2024 8:15 AM CDT - 01/21/2024 4:24 PM CDT Hospital Encounter Department of Radiation Oncology in [place], [place] [address] [place] [phone] Saman Morfin M.D. [address] [place] [phone] Marginal Zone Lymphoma Jona (HCC) Social History Tobacco Use Types Packs/Day Years Used Date Smoking Tobacco: Never Smokeless Tobacco: Never Alcohol Use Standard Drinks/Week Comments Not Currently 0 (1 standard drink = 0.6 oz pur e alcohol) [facility] Utilities Answer Date Recorded In the [...] your living situation today? I have a [facility] place to live 01/05/2024 Sex and Gender Information Value Date Recorded Sex Assigned at Male 01/05/2024 12:37 PM CDT Gender Identity Male 01/05/2024 12:37 PM CDT Sexual Orientation Straight 01/05/2024 12 :37 PM CDT documented as of this encounter Last Filed Vital Signs Vital Sign Reading Time Taken Comments Blood Pressure - - Pulse - - Temperature 36.4 ??C (97.5 ??F) 01/21/2024 8:45 [...] Progress Notes * Saman Morfin M.D. - 01/21/2024 8:45 AM CDT SUBJECTIVE REASON FOR VISIT Evaluation for side effects while receiving radiation treatment for 1. Marginal Zone Lymphoma Jona (HCC) SUPERVISED BY: Dr. Morfin HISTORY OF PRESENT ILLNESS Esau Nelson is [...] (cGy) First Treatment Last Treatment Elapsed Days [id number] 01/06/2024 01/21/2024 15 Course Summary 01/06/2024 01/21/2024 15 Oncology History Marginal Zone Lymphoma Jona (HCC) 03/2023 Other Patient noticed a mass in the left groin that did not grow for approximately 4-5 months. In August he noticed an increase in swelling which prompted him to seek medical attention. 09/26/[address] abdomen and pelvis impression: Circumscribed mass within the left inguinal soft tissues measuring 5.2 cm. Ultrasound-guided core needle biopsy recommended. Additional smaller adjacent lymph nodes are present extending along the left external iliac chain and left pelvic sidewall 10/16/2023 Biopsy/Pathology Final Diagnosis A) LEFT INGUINAL MASS, NEEDLE CORE BIOPSY: 1. 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 See comment Comment: The morphologic and immunophenotypic features are those of a low-grade B-cell lymphoma with findings consistent with marginal zone lymphoma. The findings are discussed with Dr. West, who notes the patient has a superficial solitary left inguinal mass with no other systemic symptoms. Careful correlation with any additional clinical, staging, and imaging data is recommended. If clinically indicated, excisional biopsy might provide additional ancillary data, such as a complete immunophenotype study by flow cytometry, and karyotype analysis. 10/28/2023 Biopsy/Pathology Final Diagnosis A) LYMPH NODE, LEFT INGUINAL, EXCISIONAL BIOPSY: 1. Low-grade B-cell lymphoma consistent with jona marginal zone lymphoma (WHO 2016) 2. Cytogenetic chromosome studies pending, appended results to follow 3. MYD88 L265P mutation analysis is NEGATIVE; see attached report for details 4. See comment Comment The findings are essentially identical to those seen in the recent left inguinal mass needle core biopsy ([id number], 10/16/2023) and appear characteristic of a low-grade B-cell lymphoma with plasmacytic differentiation most compatible with jona marginal zone lymphoma. There is no evidence of large cell transformation. The differential diagnosis also included lymphoplasmacytic lymphoma, which can show considerable morphologic and immunophenotypic overlap with marginal zone lymphoma, but less often involves lymph nodes. Molecular testing for MYD88 L265P mutation was performed at [facility] and is negative. Given that the vast majority of cases of lymphoplasmacytic lymphoma demonstrate a MYD88 mutation, the findings are most consistent with jona marginal zone lymphoma. Clinical correlation is recommended. 11/06/2023 Critical Imaging PET-CT impression: No evidence of hypermetabolic lymphadenopathy. Postsurgical changes in the left groin fluid collection measuring up to 2.2 to 6.1 cm. No focal hypermetabolic activity suggesting local recurrence or residual disease. Favoring seroma and chronic hematoma. Palpable mild normal size spleen that demonstrates normal radiotracer uptake. Punctate subcentimeter nonobstructing right renal calculus. 11/18/2023 Biopsy/Pathology BONE MARROW: 1. Negative for lymphoma 2. Normocellular bone marrow for age (50-60% cellular) with trilineage hematopoiesis 3. Adequate storage iron; adequate sideroblastic iron 4. Ancillary studies: a. Cytogenetics: Not performed b. Molecular: Not performed PERIPHERAL BLOOD: Within normal limits 12/04/[address] Danielle Sanchez, Medical Oncology. She recommended ISRT with rituximab x4 weekly cycles. 01/06/2024 - Radiation Therapy Radiation Therapy Treatment Details (Noted on 12/10/2023) Site: Left Pelvis Technique: 3D INFANTRYMAN Goal: Curative Planned Treatment Start Date: 01/06/2024 01/09/[address] right knee demonstrated no concerning findings for lymphadenopathy or disease. The patient was seen and examined today with Dr. Morfin. The patient reports that he is doing well. He is applying mometasone twice a day to the treatment field area waiting at least 20 minutes and then lotion twice a day. He does feel tightness/hardening to treatment field area. He does not feel the need to take pain medication at this time. Patient denies dysuria, diarrhea, hematuria, rectal bleeding, nausea, vomiting, fevers or chills. PATIENT REPORTED SYMPTOM SCREEN FATIGUE (Scale: 0 = no fatigue; 10 = worst fatigue you can imagine): 3 PAIN (Scale: 0 = no pain; 10 = worst pain you can imagine): 2 OVERALL QUALITY OF LIFE (Scale: 0 = as bad as can be; 10 = as good as can be): 7 OBJECTIVE Temp 36.4 ??C (Temporal) Wt 82.1 kg PHYSICAL EXAM General: Alert and oriented in no apparent distress. Skin: Small area of pink toned skin to left inguinal region. 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 Patient will continue with his current skin care routine for two weeks. He will then apply lotion as needed if any dryness is present. Dr. Morfin ordered lymphedema evaluation and therapy at [facility] post completion of radiotherapy. Patient is scheduled for rituximab infusion today and last infusion is scheduled for next Saturday. Dr. Sanchez will see patient in follow up care. Dr. Morfin will keep his follow up to an as needed basis. Dr. Morfin will review patient's next set of imaging. He will contact us with any questions or concerns. Toxicities reviewed with Dr. Morfin today. Signed by: Lisa Calles R.N. 01/21/2024 9:28 AM CDT I saw and evaluated the patient and participated in the blake portions of the service. I reviewed thedocumentation of Lisa Calles R.N. and agree with the findings and plan. The patient appears well on exam. He finished his treatment as planned today and has tolerated it well without apparent side effect. He does have appointments with lymphedema and physical therapy scheduled in the coming weeks. He will continue his follow-up with Dr. Sanchez. I will review his next imaging that she will order, but I will not schedule a formal follow-up with him. He understands that he can contact me at any time with questions or concerns. He verbalized satisfaction with this plan. Signed by: Saman Morfin M.D. 01/21/2024 4:24 PM CDT [facility] [address] [place] [address] documented in this encounter Miscellaneous Notes * Addendum Note - Flor Pride - 01/21/2024 8:45 AM CDTEncounter addended by: Flor Pride on: 01/22/2024 7:29 AM Actions taken: Letter saved documented in this encounter Plan of Treatment Scheduled Orders Name Type Priority Associated Diagnoses Orde r Schedule Management Visit Radiation Oncology Routine Marginal Zone Lymphoma Jona (HCC) Once for 1 Occurrences starting 01/21/2024 until 01/21/2024 documented as of this encounter Visit Diagnoses Diagnosis Marginal Zone Lymphoma Jona (HCC) documented in this encounter
--- OUTSIDE RECORDS SUMMARY | 2024-02-03 07:56 | XMS_ITS | Encounter Summary ---
Author Name Unknown Organization [facility] Address [address] [place] [address] Care Team Providers Care Grinder Watch Parts Name Role Phone Unavailable Primary Care Provider Unavailabl e Reason for Visit * Radiation Therapy (Routine) - Closed Specialty Diagnoses / Procedures Referred By Contac t Referred To Contact Diagnoses Marginal Zone Lymphoma Jona (HCC) Procedures Prior Auth Rad Tx [place] RADTN [place] DEL >=1 MEV COMPLEX 3D Saman Morfin M.D. [address] [place] [phone] [facility] Referral ID Status Reason Start Date Expiration Date Visits Re quested Visits Authorized [id number] Closed 12/23/2023 12/09/2024 12 12 Encounter Details Date Type Department Care Team (Late st Contact Info) Description 01/13/2024 12:24 PM CDT Hospital Encounter Department of Radiation Oncology in [place], [place] [address] [place] [phone] Saman Morfin M.D. [address] [place] [phone] Social History Tobacco Use Types Packs/Day Years Used Date Smoking Tobacco: Never Smokeless Tobacco: Never Alcohol Use Standard Drinks/Week Comments Not Currently 0 (1 standard drink = 0.6 oz pur e alcohol) [facility] Utilities Answer Date Recorded In the past [...] your living situation today? I have a [facility] place to live 01/05/2024 Sex [...]
--- OUTSIDE RECORDS SUMMARY | 2024-02-03 07:56 | XMS_ITS | Encounter Summary ---
Author Name Unknown Organization [facility] Address [address] [place] [address] Care Team Providers Care Filterer Name Role Phone Unavailable Primary Care Provider Unavailabl e Reason for Visit * Radiation Therapy (Routine) - Closed Specialty Diagnoses / Procedures Referred By Contac t Referred To Contact Diagnoses Marginal Zone Lymphoma Jona (HCC) Procedures Prior Auth Rad Tx [place] RADTN TX DEL >=1 MEV COMPLEX 3D Saman Morfin M.D. [address] [place] [phone] [facility] Referral ID Status Reason Start Date Expiration Date Visits Re quested Visits Authorized [id number] Closed 12/23/2023 12/09/2024 12 12 Encounter Details Date Type Department Care Team (Late st Contact Info) Description 01/17/2024 8:17 AM CDT Hospital Encounter Department of Radiation Oncology in [place], [place] [address] [place] [phone] Saman Morfin M.D. [address] [place] [phone] Social History Tobacco Use Types Packs/Day Years Used Date Smoking Tobacco: Never Smokeless Tobacco: Never Alcohol Use Standard Drinks/Week Comments Not Currently 0 (1 standard drink = 0.6 oz pur e alcohol) [facility] Utilities Answer Date Recorded In the past [...] your living situation today? I have a [facility] place to live 01/05/2024 Sex and [...]
--- OUTSIDE RECORDS SUMMARY | 2024-02-03 07:56 | XMS_ITS | Clinical Summary ---
Author Name Unknown Organization [facility] Address [address] [place] [address] Care Team Providers Care Actuary Clerk Name Role Phone Unavailable Primary Care Provider Unavailabl e Source Comments Patient records contain information from all sites at [facility]. For routine questions regarding patient records, call [phone] during business hours, M-F 8:00 AM - 5:00 PM Central Time. Record requests for emergency care only can be directed to [phone] at any time.[facility] Allergies Active Allergy Reactions Criticality Noted Date [...] from 10/16/2023:Stage I(Marginal zone lymphoma) - Unsigned Encounters Date Type Department Care Team Description 01/21/2024 8:15 AM CDT - 01/21/2024 4:24 PM CDT Hospital Encounter Department of Radiation Oncology in [address] [address] Saman Morfin M.D. Marginal Zone Lymphoma Jona (HCC) 01/21/2024 8:15 AM CDT Hospital Encounter Department of Radiation Oncology in [address] [address] Saman Morfin M.D. 01/20/2024 8:10 AM CDT Hospital Encounter Department of Radiation Oncology in [address] [address] Saman Morfin M.D. 01/17/2024 8:17 AM CDT - 01/17/2024 10:12 AM CDT Hospital Encounter Department of Radiation Oncology in [address] [address] Saman Morfin M.D. Buskirk, Steven J, M.D. Marginal Zone Lymphoma Jona (HCC) 01/17/2024 8:17 AM CDT Hospital Encounter Department of Radiation Oncology in [address] [address] Saman Morfin M.D. 01/16/2024 8:01 AM CDT Hospital Encounter Department of Radiation Oncology in [address] [address] Saman Morfin M.D. 01/15/2024 8:14 AM CDT Hospital Encounter Department of Radiation Oncology in [address] [address] Saman Morfin M.D. 01/14/2024 7:59 AM CDT Hospital Encounter Department of Radiation Oncology in [address] [address] Saman Morfin M.D. 01/13/2024 12:24 PM CDT Hospital Encounter Department of Radiation Oncology in [address] [address] Saman Morfin M.D. 01/10/2024 10:13 AM CDT - 01/10/2024 11:50 AM CDT Hospital Encounter Department of Radiation Oncology in [address] [address] Saman Morfin M.D. Grieman, Kari A, R.N. Marginal Zone Lymphoma Jona (HCC) Discharge Disposition: Home or Self Care 01/10/2024 10:13 AM CDT Hospital Encounter Department of Radiation Oncology in [address] [address] Saman Morfin M.D. 01/09/2024 8:25 AM CDT Hospital Encounter Department of Radiation Oncology in [address] [address] Saman Morfin M.D. 01/09/2024 Documentation Department of Radiation Oncology in [address] [address] Pilar Singh R.N. 01/08/2024 8:07 AM CDT - 01/08/2024 6:24 PM CDT Hospital Encounter Department of Radiation Oncology in [address] [address] Saman Morfin M.D. Swelling Knee Right (Primary Dx); Marginal Zone Lymphoma Jona (HCC) 01/08/2024 8:07 AM CDT Hospital Encounter Department of Radiation Oncology in [address] [address] Saman Morfin M.D. 01/07/2024 8:35 AM CDT Hospital Encounter Department of Radiation Oncology in [address] [address] Saman Morfin M.D. 01/06/2024 1:42 PM CDT Hospital Encounter Department of Radiation Oncology in [address] [address] Saman Morfin M.D. 01/06/2024 Clinical Communication Department of Radiation Oncology in [address] [address] Saman Morfin M.D. 12/25/2023 11:15 AM DISABILITY HEARING OFFICER - 12/25/2023 1:42 PM DISABILITY HEARING OFFICER Hospital Encounter Department of Radiation Oncology in [place], [place] [address] [place] [address] Saman Morfin M.D. Marginal Zone Lymphoma Jona (HCC) 12/13/2023 8:38 AM DISABILITY HEARING OFFICER - 12/13/2023 10:26 AM DISABILITY HEARING OFFICER Hospital Encounter Department of Radiation Oncology in [place], [place] [address] [place] [address] Saman Morfin M.D. Marginal Zone Lymphoma Jona (HCC) (Primary Dx) 12/10/2023 Orders Only Department of Radiation Oncology in [place], [place] [address] [place] [phone] Meaghan Vasquez APRN, C.N.P., D.N.P. Marginal Zone Lymphoma Jona (HCC) (Primary Dx) from Last 3 Months Family History Medical History Relation Name Comments AF - Atrial fibrillation Father Hypertension Father Skin cancer Father Skin cancer Paternal Grandfather Stroke Paternal Grandfather Relation Name Status Comments Father Paternal Grandfather Social History Tobacco Use Types Packs/Day Years Used Date Smoking Tobacco: Never Smokeless Tobacco: Never Tobacco Cessation:Counseling Given: Not Answered Alcohol Use Standard Drinks/Week Comments Not Currently 0 (1 standard drink = 0.6 oz pur e alcohol) [facility] Utilities Answer Date Recorded In the past 12 months has th e [employer], gas, oil, or water [place] threatened to shut off services in your [...] your living situation today? I have a [facility] place to live 01/05/2024 Sex and [...] Mass Index - - Plan of Treatment Health Maintenance Due Date Last Done Comments CT Colonography 1966 Cologuard 1966 Colonoscopy 1966 Colorectal Cancer Screening 1966 FIT 1966 Fasting Glucose for Diabetes Screening 1966 HIV Screening 1966 Hepatitis C Screening 1966 Lipid (Cholesterol) Screening 1966 Pneumococcal vaccine (0-64 years) (1 of 2 - PCV) 1972 Zoster Vaccines (1 of 2) 1985 Depression Screening (Annual PHQ-2) 10/21/2023 DTaP,Tdap,and Td Vaccines (2 - Td or Tdap) 07/22/2028 07/22/2018, 09/04/2005 Hepatitis B Vaccines Completed 03/06/2006, 10/04/2005, 09/04/2005 COVID-19 Vaccine Completed 08/05/2023, 09/2022, 08/21/2021, Additional history exists Influenza Vaccine Completed 08/05/2023, , 07/11/2021, Additional history exists HPV Vaccines Aged Out No longer eligi ble based [...] PLANNING CT SIMULATION Routine 12/25/2023 11:15 AM DISABILITY HEARING OFFICER Marginal Zone Lymphoma Jona (HCC) OUTSIDE CT BODY Routine 11/21/2023 3:45 PM DISABILITY HEARING OFFICER OUTSIDE NM PET Routine 11/06/2023 9:45 AM DISABILITY HEARING OFFICER from Last 3 Months Results * Aria Daily Treatment Information (01/21/2024 8:37 AM CDT) Only the most recent of12 resultswithin the time period is included. Course ID [id number] l CORTEZ ARIA Course Start Date 4 09:19 CDT CORTEZ ARIA First Treatment Date 4 14:26 CDT CORTEZ ARIA Last Treatment Date 4 08:37 CDT CORTEZ ARIA Treatment Elapsed Days 15 [facility] Reference Point [id number] CORTEZ ARIA Dosage Given to Date cGy 2400 CORTEZ [facility] Session Dosage Given 200 CORTEZ ARIA Plan ID [id number] CORTEZ ARIA Fractions Treated to Date 12 CORTEZ ARIA Planned Total Fractions 12 CORTEZ ARIA Prescribed Dose Per Fraction 200 CORTEZ ARIA Prescription Dose in cGy 2400 CORTEZ ARIA Plan Primary Reference Point [id number] CORTEZ ARIA 01/21/2024 8:37 AM CDT Provider Not In System RADIATION ONCOLOG Y ORDERABLES Performing Organization Address City/[facility]/ZIP Co de Phone Number CAMP NELSON JEFFREY na * CT knee RT w con-Outside CT MSK (01/09/2024 9:55 AM CDT) 01/09/2024 9:54 AM CDT Narrative IIMS - 01/09/2024 1:40 PM CDT This order has been created and auto-finalized to support the import of outside images. If available, original interpretation can be found on the Media Tab in Chart Review, in Document Viewer, or as an image in QREADS. If a re-interpretation or overread is required please follow defined workflow. ?? Provider Not In System IMG CT PROCEDURES RENETTA NA * Initial Rad Onc Treatment Planning CT Simulation (12/25/2023 11:15 AM DISABILITY HEARING OFFICER) Narrative DANA MURPHY - 12/25/2023 11:15 AM DISABILITY HEARING OFFICER Alize Duran, RTT ? 12/25/2023 12:39 PM Initial Rad Onc Treatment Planning CT Simulation Performed by: Saman Morfin M.D. Authorized by: Saman Morfin M.D. ?? Saman Morfin M.D. RADIATION ONCOLOGY ORDERABLES Performing Organization Address [facility] Phone Number DANA MURPHY na * CT ABDOMEN PELVIS WO CON-Outside CT Body (11/21/2023 3:45 PM DISABILITY HEARING OFFICER) Narrative [facility] - 12/09/2023 4:14 PM DISABILITY HEARING OFFICER This order has been created and auto-finalized to support the import of outside images. If available, original interpretation can be found on the Media Tab in Chart Review, in Document Viewer, or as an image in QREADS. If a re-interpretation or overread is required please follow defined workflow. ?? Provider Not In System IMG CT PROCEDURES Performing Organization Address [facility] Phone Number RENETTA NA * PET/CT SKULL TO THIGH-Outside NM Pet (11/06/2023 9:45 AM DISABILITY HEARING OFFICER) Narrative [facility] - 12/10/2023 10:12 AM DISABILITY HEARING OFFICER This order has been created and auto-finalized to support the import of outside images. If available, original interpretation can be found on the Media Tab in Chart Review, in Document Viewer, or as an image in QREADS. If a re-interpretation or overread is required please follow defined workflow. ?? Provider Not In System IMG NM PROCEDURES Performing Organization Address [facility] de Phone Number RENETTA NA from Last 3 Months
--- OUTSIDE RECORDS SUMMARY | 2024-02-03 07:56 | XMS_ITS ---
Author Name Unknown Organization [facility] Address [address] [place] [address] Care Team Providers Care Opal Miner Name Role Phone Unavailable Primary Care Provider Unavailabl e Active Problems Problem Noted Date Diagnosed Date Marginal Zone Lymphoma Jona 12/10/2023 Cancer Staging:Clinical stage from 10/16/2023:Stage I(Marginal zone lymphoma) - Unsigned Current Oncology Plans No current plan information found. Past Plans No past plan information found. Radiation Treatments * Plan Last Treated On Elapsed Days Fractions Treated Prescribed Fraction Dose Prescribed Total Dose [id number] 01/21/2024 15 12 of 12 200 cGy 2,400 cG y Reference Point Last Treated On Elapsed Days Session Dose Total Dose [id number] 01/21/2024 15 200 cGy 2,400 cGy
--- OUTSIDE RECORDS SUMMARY | 2024-02-03 07:56 | XMS_ITS | Encounter Summary ---
Author Name Unknown Organization [facility] Address [address] [place] [address] Care Team Providers Care Architectural Examiner Name Role Phone Unavailable Primary Care Provider Unavailabl e Reason for Visit * Appointment Request (Routine) - Closed Specialty Diagnoses / Procedures Referred By Contmason t Referred To Contact Radiation Oncology Diagnoses Unspecified B Cell Lymphoma Unspecified Site (HCC) Danielle Sanchez M.D. [address] [place] [address] Referral ID Status Reason Start Date Expiration Date Visits Re quested Visits Authorized [id number] Closed 12/04/2023 12/03/2024 1 1 Encounter Details Date Type Department Care Team (Latest Contact Info) Description 12/13/2023 8:38 AM [facility] - 12/13/2023 10:26 AM [facility] Hospital Encounter Department of Radiation Oncology in [place], [place] [address] [place] [phone] Saman Morfin M.D. [address] [place] [address] Marginal Zone Lymphoma Jona (HCC) (Primary Dx) Social History Tobacco Use Types Packs/Day Years [...] Sign Reading Time Taken Comments Blood Pressure 163/93 12/13/2023 8:48 AM TESTER SOUND Pulse 87 12/13/2023 8:48 AM TESTER SOUND Temperature 36.1 ??C (97 ??F) 12/13/2023 8:48 AM TESTER SOUND Respiratory Rate - - Oxygen Saturation - - Inhaled Oxygen Concentration - - Weight 81.3 kg (179 lb 3.7 oz) 12/13/2023 8:48 A M TESTER SOUND Height - - Body Mass Index - [...] 1 01/05/2024 documented as of this encounter Consult Notes * Meaghan Vasquez APRN, C.N.P., D.N.P. - 12/13/2023 9:00 AM CST SUBJECTIVE REQUESTING PROVIDER Danielle Sanchez M.D. REASON FOR CONSULT 1. Marginal Zone Lymphoma Jona (HCC) SUPERVISED BY: Saman Morfin M.D. ([id number]) HISTORY OF PRESENT ILLNESS Esau Nelson is a 58 y.o. 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 He underwent excisional biopsy on October 28, 2023. He presents today for an opinion regarding the role of radiation therapy in the management of his disease. His oncologic history is as follows: Oncology History Marginal Zone Lymphoma Jona (HCC) [...] recent left inguinal mass needle core biopsy ([id number], 10/16/2023) and appear characteristic of a low-grade B-cell lymphoma with plasmacytic differentiation most compatible with jona marginal zone lymphoma. There is no evidence of large cell transformation. The differential diagnosis also included lymphoplasmacytic lymphoma, which can show considerable morphologic and immunophenotypic overlap with marginal zone lymphoma, but less often involves lymph nodes. Molecular testing for MYD88 [id number] mutation was performed at [facility] and is negative. Given that the [...] recommended ISRT with rituximab x4 weekly cycles. 12/23/2023 - Radiation Therapy Radiation Therapy Treatment Details (Noted on 12/10/2023) Site: Left Pelvis Technique: No technique specified Goal: Curative Planned Treatment Start Date: 12/23/2023 INTERVAL HISTORY The patient was seen and examined today with Dr. Morfin. The patient reports feeling well overall. Over the last couple of weeks he has been battling significant kidney stones, but he feels these are past now. Prior to his excisional biopsy, he was experiencing significant pain in the left inguinal area that was radiating into his left thigh, left lower abdomen, and around to his left lower back. Following the excisional biopsy, this pain has diminished quite significantly and he now only feels occasional mild discomfort that does not radiate. He denies any swelling within the left leg at any time. He does have occasional discomfort in the left legif he lies on it too long. He feels his incision is healing well without any redness or drainage. Prior to his diagnosis, he was not experiencing any fevers or chills, drenching night sweats, or any weight loss. Around the time he was dealing with kidney stones, he was experiencing drenching night sweats and some weight loss associated with decreased appetite. Since the kidney stones have passed,the symptoms have resolved. The patient has noticed some pain around his right elbow and swelling behind his right knee. He otherwise denies any new lumps or bumps, any pain, or any other significantchanges. The patient denies a history of prior radiation therapy, connective tissue disorders, or inflammatory bowel disease. The patient denies any implanted devices. His ECOG performance status is 0. REVIEW OF SYSTEMS Review of systems was negative except as documented above. PATIENT REPORTED SYMPTOM SCREEN FATIGUE (Scale: 0 = no fatigue; 10 = worst fatigue you can imagine): 2 PAIN (Scale: 0 = no pain; 10 = worst pain you can imagine): 1 OVERALL QUALITY OF LIFE (Scale: 0 = as bad as can be; 10 = as good as can be): 6 PAST MEDICAL HISTORY Past Medical History: Diagnosis Date Asthma (HCC) Stone Kidney PAST SURGICAL HISTORY Past Surgical History: Procedure Laterality Date WRIST FRACTURE SURGERY Right FAMILY HISTORY Family History Problem Relation Age of Onset Skin cancer Father Hypertension Father AF - Atrial fibrillation Father Stroke Paternal Grandfather Skin cancer Paternal Grandfather SOCIAL HISTORY Social History Socioeconomic History Marital status: Number of children: 0 Tobacco Use Smoking status: Never Smokeless tobacco: Never Vaping Use Vaping Use: never used Substance and Sexual Activity Alcohol use: Not Currently OBJECTIVE BP (!) 163/93 (BP Location: Right arm, Patient Position: Sitting, Cuff Size: Regular) Pulse 87 Temp 36.1 ??C (Temporal) Wt 81.3 kg PHYSICAL EXAM General: Patient is alert and oriented in no apparent distress. Lymph: No palpable submandibular, submental, occipital, cervical, supraclavicular, infraclavicular,axillary, or epitrochlear adenopathy. Lungs: Clear to auscultation bilaterally. Heart: Regular rate and rhythm. Normal S1 and S2. Abdomen: Soft, non-tender, non-distended. Normal active bowel sounds are present. Extremities: Mild tenderness to palpation around the right elbow, no tenderness to palpation of theleft elbow. ASSESSMENT / PLAN #1 Stage I Jona Marginal Zone Lymphoma of the left inguinal region, status post excisional biopsy on October 28, 2023 It was a pleasure to meet with Esau today. I had a detailed discussion with him regarding his jona marginal zone lymphoma diagnosis. We reviewed the oncologic history as detailed above. We discussed the risks, benefits, and alternatives of radiotherapy in this setting. We discussed the recommendation for radiation treatment to his left inguinal nodule in 12 fractions. I discussed the logistics, as well as, the acute and chronic side effects of treatment in detail. The acute side effects may include, but are not limited to, skin irritation leading to possible blistering and peeling, loss of pubic hair, urinary frequency and urgency, bowel frequency and urgency, loose stools, and fatigue. Long-term side effects can be rare and may include, but are not limited to, very low risk of left leg swelling and very low risk of developing a secondary malignancy. The patient was provided with a written summary of recommendations. His questions were answered to their verbalized satisfaction. To help minimize the risk of radiation dermatitis, we provided a prescription for mometasone. I reviewed applying this twice daily during the course of radiation treatment and for at least 10 days following the completion of treatment. I also discussed applying a non-scented lotion 2-3 times daily t hroughout that time frame as well. After discussion, the patient verbally stated that he would like to proceed with treatment. He willreturn to undergo CT simulation on December 24, 2023. We anticipate starting radiation therapy on 2023. The patient has a work trip from December 25 - which is why we are delaying his simulationand treatment. Patient seen in collaboration with Dr. Morfin, please review his attestation for additional information. The patient was provided with our contact information. He was asked to contact us with questions or concerns. He verbally expressed his understanding of the plan. EDUCATION Ready to learn, no apparent learning barriers were identified; learning preferences include listening. Explained diagnosis and treatment plan; patient expressed understanding of the content. CONSENT Discussed the risks, benefits, alternatives, and the necessity of other members of the healthcare team participating in the procedure. All questions answered and consent given. PRIMARY PROVIDER Jenn Hutton MD I personally spent 50 minutes in care of the patient today. Time includes both non face to face andface to face patient care. Signed by: Meaghan Vasquez APRN, C.N.P., D.N.P. 12/13/2023 9:54 AM TESTER SOUND [facility] [address] [place] [address] ER SOUND Associated attestation - Saman Morfin M.D. - 12/13/2023 10:22 AM TESTER SOUND I saw and evaluated the patient and participated in the blake portions of the service. I reviewed thedocumentation of Meaghan Vasquez C.N.P. and agree with the findings and plan. Esau Nelson is a 58 y.o. male with stage I jona marginal zone lymphoma involving left inguinallymph nodes. We are asked by Dr. Sanchez to evaluate the patient for radiotherapy. His hematologic history is well detailed in Ms. Kurtti's note. In brief, the patient first noted a mass in his left inguinal region in March of 2023 that enlarged in size in August. CT scan of the abdomen and pelvis on September 26, 2023 revealed a mass in the left inguinal region measuring 5.2 cm. There were smaller adjacent lymph nodes extending along the left external iliac chain. A core biopsyof the left inguinal mass on October 16, 2023 confirmed a low-grade B-cell lymphoma consistent with marginal zone lymphoma. An excisional biopsy was performed on October 28, 2023 with pathology againconfirming a low-grade B-cell lymphoma consistent with jona marginal zone lymphoma. A PET/CT scan on November 06, 2023 had no evidence of residual hypermetabolic lymphadenopathy. There were postsurgical changes in the left groin measuring up to 6.1 cm. Bone marrow biopsy on November 18, 2023 was negative. He was seen in consultation by Dr. Sanchez on December 04, 2023 and she recommended radiotherapy with rituximab for 4 weekly cycles. The patient reports that he is feeling well. A few weeks prior to this he was experiencing pain andnight sweats related to nephrolithiasis. This has all resolved. Prior to his excisional biopsy he was experiencing pain in his left groin, but this has also resolved since the biopsy. His weight has been stable. His ECOG performance status is 0. OBJECTIVE BP (!) 163/93 (BP Location: Right arm, Patient Position: Sitting, Cuff Size: Regular) Pulse 87 Temp 36.1 ??C (Temporal) Wt 81.3 kg PHYSICAL EXAM General: Patient is awake, alert, and oriented to person, place, and time. No apparent distress. The patient is here today by himself. Lymph: No palpable right epitrochlear, right popliteal, right inguinal, or left inguinal adenopathy. Remainder is as per Ms. Vasquez's note. DIAGNOSTICS I reviewed the patient's pathology reports and imaging. 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 I reviewed the NCCN guidelines in formulating my recommendations. I went over these with the patient. I recommend treatment to the left inguinal jona chain to a dose of 24 Gy in 12 fractions. I spoke with Dr. Sanchez by phone. Her recommendation for concurrent or sequential rituximab. The patient has a scheduled trip to [place] from December 24 through January 02.His I discussed the logistics as well as the acute and chronic side effects of treatment in detail. Fora complete listing of these, please see Ruslansamson's note. After this discussion, I provided the patient with a written summary of my recommendations. His questions were answered to his verbalized satisfaction. The patient verbally stated that he would like to proceed with treatment. He will undergo CT simulation on December 24. We will endeavor to begin treatment on Saturday, January 06, 2024 when he returns from his trip. My thanks to Drs. Sanchez and Delon and Ms. Chacko for the opportunity to participate in this patient's care. I have spent 35 minutes caring for this patient including both [id number] and lyq-bxhx-ud-face time. Signed by: Saman Morfin M.D. 12/13/23 10:22 AM TESTER SOUND [facility] [place] documented in this encounter Miscellaneous Notes * Addendum Note - Melissa Membreno, C.N.A. - 12/13/2023 9:00 AM CSTEncounter addended by: Melissa Membreno C.N.A. on: 12/13/2023 11:35 AM Actions taken: Letter saved ER SOUND documented in this encounter Plan of Treatment Not on file documented as of this encounter Visit Diagnoses Diagnosis Marginal Zone Lymphoma Jona (HCC)- Primary documented in this encounter
--- OUTSIDE RECORDS SUMMARY | 2024-02-03 07:56 | XMS_ITS | Encounter Summary ---
Author Name Unknown Organization [facility] Address [address] [place] [address] Care Team Providers Care Correctional Security Officer Name Role Phone Unavailable Primary Care Provider Unavailabl e Reason for Visit * Radiation Therapy (Routine) - Closed Specialty Diagnoses / Procedures Referred By Contac t Referred To Contact Diagnoses Marginal Zone Lymphoma Jona (HCC) Procedures Prior Auth Rad Tx RI RADTN TX DEL >=1 MEV COMPLEX 3D Saman Morfin M.D. [address] [place] [phone] [facility] Referral ID Status Reason Start Date Expiration Date Visits Re quested Visits Authorized [id number] Closed 12/23/2023 12/09/2024 12 12 Encounter Details Date Type Department Care Team (Late st Contact Info) Description 01/09/2024 8:25 AM CDT Hospital Encounter Department of Radiation Oncology in [place], [place] [address] [place] [phone] Saman Morfin M.D. [address] [place] [phone] Social History Tobacco Use Types Packs/Day Years Used Date Smoking Tobacco: Never Smokeless Tobacco: Never Alcohol Use Standard Drinks/Week Comments Not Currently 0 (1 standard drink = 0.6 oz pur e alcohol) [facility] Utilities Answer Date Recorded In [...] your living situation today? I have a [facility] place to live 01/05/2024 Sex and [...]
--- OUTSIDE RECORDS SUMMARY | 2024-02-03 07:57 | XMS_ITS | Clinical Summary ---
Author Name Unknown Organization [facility] Address [address], [place] [address] Care Team Providers Care Timekeeping Supervisor Name Role Phone Unavailable Primary Care [...] for each transition of care or referral. [facility] Allergies Active Allergy Reactions Criticality Noted Date [...] 1966 Hep C Screening (Preventive Services) 1966 PSA Screening Discussion 1966 HIV Screening (Preventive Services) 1982 Adult Preventive Visit 1984 HepB (1) 1985 Cholesterol 2001 Zoster/Shingles (1 of 2) 2016 COVID-19 Vaccine ( season) 2023 01/19/2021 Influenza (#1) 2023 07/04/2020, 07/22, 07/22/2018, Additional [...]
--- OUTSIDE RECORDS SUMMARY | 2024-02-03 07:57 | XMS_ITS | Encounter Summary ---
Author Name Unknown Organization [facility] Address [address] [place] [address] Care Team Providers Care Date Night Sitter Name Role Phone Unavailable Primary Care Provider Unavailabl e Reason for Referral * Specialty Diagnoses / Procedures Referred By Contac t Referred To Contact Meaghan Vasquez APRN, C.N.P., D.N.P. [address] [place] [phone] [facility] Referral ID Status Reason Start Date Expiration Date Visits Re quested Visits Authorized RAM CLERK * Radiation Therapy (Routine) - Closed Specialty Diagnoses / Procedures Referred By Contac t Referred To Contact Diagnoses Marginal Zone Lymphoma Jona (HCC) Procedures Prior Auth Rad Tx DC RADTN TX DEL >=1 MEV COMPLEX 3D Saman Morfin M.D. [address] [place] [phone] [facility] Referral ID Status Reason Start Date Expiration Date Visits Re quested Visits Authorized [id number] Closed 12/23/2023 12/09/2024 12 12 RAM CLERK * Radiation Therapy (Routine) - Authorized Specialty Diagnoses / Procedures Referred By Contac t Referred To Contact Diagnoses Marginal Zone Lymphoma Jona (HCC) Procedures Management Visit Saman Morfin M.D. [address] [place] [phone] [facility] Referral ID Status Reason Start Date Expiration Date V isits Requested Visits Authorized [id number] Authorized 12/10/2023 12/09/2024 10 10 RAM CLERK * Radiation Therapy (Routine) - Closed Specialty Diagnoses / Procedures Referred By Jeramy casillas Referred To Contact Diagnoses Marginal Zone Lymphoma Jona (HCC) Procedures Initial Rad Onc Treatment Planning CT Simulation Saman Morfin M.D. [address] [place] [phone] [facility] Region Referral ID Status Reason Start Date Expiration Date Visits Re quested Visits Authorized [id number] Closed 12/10/2023 12/09/2024 1 1 RAM CLERK Encounter Details Date Type Department Care Team ([facility] st Contact Info) Description 12/10/2023 Orders Only Department of Radiation Oncology in [place], [place] [address] [place] [phone] Meaghan Vasquez APRN, C.N.P., D.N.P. [address] [place] [phone] Marginal Zone Lymphoma Jona (HCC) (Primary Dx) [...] Date Recorded Dental: Regular Dentist Unknown 10/29/19 24 Sex and Gender Information Value Date Recorded Sex Assigned at Male 01/05/2024 12:37 PM CDT Gender Identity Male 01/05/2024 12:37 PM CDT Sexual Orientation Straight 01/05/2024 12 :37 PM CDT documented as of this encounter Plan of Treatment Scheduled Orders Name Type Priority Associated Diagnoses Order Schedule Management Visit Radiation Oncology Routine Marginal Zone Lymphoma Jona (HCC) 10 Occurrences starting 12/10/2023 until 12/10/2024 Prior Auth Rad Tx Radiation Oncology Routine Marginal Zone Lymphoma Jona (HCC) Ordered: 12/10/2023 Scheduled Referrals Name Type Priority Associated Diagnoses Orde r Schedule Radiation Oncology - Nurse education visit (clinic) Outpatient Referral Routine Marginal Zone Lymphoma Jona (HCC) Expected: 12/10/2023 (Approximate), Expires: 12/10/2024 documented as of this encounter Results * Initial Rad Onc Treatment Planning CT Simulation (12/25/2023 11:15 AM DIAGRAM CLERK) Narrative DANA MURPHY - 12/25/2023 11:15 AM DIAGRAM CLERK Alize Duran, RTT ? 12/25/2023 12:39 PM Initial Rad Onc Treatment Planning CT Simulation Performed by: Saman Morfin M.D. Authorized by: Saman Morfin M.D. ?? Saman Morfin M.D. RADIATION ONCOLOGY ORDERABLES DANA MURPHY na documented in this encounter Visit Diagnoses Diagnosis Marginal Zone Lymphoma Jona (HCC)- Primary Marginal Zone Lymphoma Jona (HCC) documented in this encounter
--- OUTSIDE RECORDS SUMMARY | 2024-02-03 07:57 | XMS_ITS | Clinical Summary ---
Author Name Unknown Organization [facility] Address [place], [place] [address] Care Team Providers Care Caddy Packer Name Role Phone Pcp, No Primary Care Provider Unavailabl e Allergies Active Allergy Reactions Criticality Noted Date Comments Penicillins *Unknown - Childhood Rxn 10/01/2011 Medications No known medications Active Problems No known active problems Encounters Date Type Department Care Team Description 11/18/2023 Lab Requisition [facility] [phone] Danielle Sanchez MD from Last 3 Months Immunizations Name [...] Comments Blood Pressure 122/82 10/01/2011 8:57 AM COUNTY ATTORNEY Pulse 82 10/01/2011 8:57 AM COUNTY ATTORNEY Temperature - - Respiratory Rate - - Oxygen Saturation - - Inhaled Oxygen Concentration - - Weight 73.6 kg (162 lb 3.2 oz) 10/01/2011 8:57 A M COUNTY ATTORNEY Height 176.5 cm (5' 9.5) 10/01/2011 8:57 AM COUNTY ATTORNEY Body Mass Index 23.61 10/01/2011 8:57 AM COUNTY ATTORNEY Plan of Treatment Health Maintenance Due Date Last Done Comments Tdap 1977 Depression screening for age 12+ 1978 HIV for age 15-65 1981 BMI (ht and wt on same day) for age 18+ 1984 Hepatitis C screening for ag e 18-79 1984 Tetanus booster 1986 Colonoscopy through age 75 2011 Zoster (shingles) series for age 50+ (1 of 2) 2016 Lipids for age 45-75 10/01/2016 10/01/2011, 12/02/2006 COVID-19 vaccine series (2022-24 season) 2023 Influenza for age 50-64 06/21/2024 Pneumococcal series for age 6-64 Aged Out No longer eligible b ased on patient's age to complete this topic Procedures Procedure Name Priority Date/Time Associated Diagnosis Comments LAB TRACKING EVENT Routine 11/18/2023 12 :15 PM COUNTY ATTORNEY BONE MARROW STUDY Routine 11/18/2023 12: 15 PM COUNTY ATTORNEY BONE MARROW DIFFERENTIAL Routine 11/18/2023 12:15 PM COUNTY ATTORNEY LIPID PANEL W REFLEX MEASURED LDL Routine 10/01/2011 10:00 AM COUNTY ATTORNEY Screening cholesterol level from Last 3 Months or Most Recently Relevant to Health Maintenance Results * BONE MARROW DIFFERENTIAL (11/18/2023 12:15 PM COUNTY ATTORNEY) Bone Marrow (Bone Marrow Aspirate) 11/18/2023 12:15 PM COUNTY ATTORNEY 11/19/2023 8:08 AM COUNTY ATTORNEY Danielle Sanchez MD LABORATORY Performing Organization Address City/[facility]/ZIP Co de Phone Number [facility] LABORATORY-CENTRAL LABORATORY [address] [place] [address], * LAB TRACKING EVENT (11/18/2023 12:15 PM COUNTY ATTORNEY) Other (Other) Client Collect / Unknown 11/18/2023 12:15 PM COUNTY ATTORNEY 11/18/2023 8:41 PM COUNTY ATTORNEY Danielle Sanchez MD LAB BILL ONLY [facility] LABORATORY-CENTRAL LABORATORY [address] [place] [address], * BONE MARROW STUDY (11/18/2023 12:15 PM COUNTY ATTORNEY) Case Report Bone Marrow Pathology Report ?Case: [id number] ? Authorizing Provider: ??Danielle Sanchez MD ?Collected: ? 11/18/2023 1215 ? Ordering Location: ? [facility] ?Received: ?11/18/20232048 ? Pathologist: ? Cecelia Reyes MD ? Specimens: ?? A) - Bone Marrow Aspirate, right ? B) - Bone Marrow Aspirate (Heparinized), right ? C) - Bone Marrow Core Biopsy, right ? D) - Peripheral Blood ? 11/20/2023 4:38 PM [facility] [place] [employer] LABORATORY-C ENTRAL LABORATORY Final Diagnosis BONE MARROW: 1. ??Negative for lymphoma 2. ??Normocellular bone marrow for age (50-60% cellular) with trilineage hematopoiesis 3. ??Adequate storage iron; adequate sideroblastic iron 4. ??Ancillary studies: ?a. ??Cytogenetics: Not performed ?b. 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 Excisional biopsy showed low-grade B-cell lymphoma consistent with justine marginal zone lymphoma; MYD88 L265P mutation was negative ([id number], 11/07/23). A staging bone marrow biopsy is performed. 11/20/2023 4:38 PM [facility] LABORATORY-C ENTRAL LABORATORY PROCEDURE A RIGHT lateral bone marrow biopsy and unilateral aspiration procedure is performed at [facility] on 11/18/23. ARTURO Sandoval performed the procedure using an 8 gauge manual needle. The ordering physician is Dr. Danielle Sanchez . The specimen is inked black. EKW 11/19/2023 ? 11/20/2023 4:38 PM [facility] [employer] LABORATORY-C ENTRAL LABORATORY CBC and Differential HEMATOLOGY PARAMETERS Tested at: ??Central Laboratory ? RESULTS ??EXPECTED VALUES WBC: ? 7.3 ?4.5-75e3618/cum m ? RBC: ? 5.29 ? 4.30-5.90 mil/cumm HGB: ? 14.8 ? 13.5-17.5 gm/di ? HCT: ? 44.5 ? 37-53% ? MCV: ? 84.1 ? 80-100 fl ? NORMOCYTIC MCH: ? 28.0 ? 26-34 pg ? MCHC: ?33.3 ? 32-36 gm/dl ? NORMOCHROMIC RDW: ? 13.0 ? 11.5-15.5% ? PLT: ? 253 ?140-848q4422/uL ? Retic: ?? 1.22 ? 0.5-1.5% ? [...] (0-3%) ? (Metas, Myelos,Pros) 11/20/2023 4:38 PM [facility] LABORATORY-C ENTRAL LABORATORY Bone Marrow Differential Blasts: ?1.0 ? 0.2-1.5% ? Neutrophils & precursors: ??61.4 ?58.0-65.0% ? Eosinophils & precursors: ??4.2 ? 0.2-5.3% ? Basophils & precursors: ?0.4 ? 0.0-1.0% ? Erythroid precursors: ?15.8 ?18.0-24.0% ?DECREASED Lymphocytes: ? 11.0 ? 3.0-24.0% ? Monocytes: ? 5.8 ? 0.7-2.8% ?ELEVATED Plasma cells: ?0.4 ? 0.1-1.5% ? M:E Ratio: ? 61 : 16 11/20/2023 4:38 PM [facility] LABORATORY-C ENTRAL LABORATORY Microscopic Description SPECIMENS EXAMINED: Peripheral blood [...] results included in diagnosis. 11/20/2023 4:38 PM COUNTY ATTORNEY [facility] LABORATORY Flow Cytometry Summary B Cell Screen panel: Interpretation: No monotypic B lymphocytes are detected. Clinical indication for flow cytometry: To evaluate for light chain restriction among B cells. Percent of Lymphs B cells: 5.7% T cells: 90.1% CD19+/[place]: 3.4% CD19+/Lambda: 2.2% [place]:Lambda ratio: 1.5 B lymphocytes in this analysis demonstrate normal qualitative expression of the following antigens: CD3, CD5, CD10, CD19, CD20, CD45, and [place] and Lambda surface light chains. Quality Assessment Viability (7-AAD): 83% Polytypic B cell events: 52 Nucleated cells analyzed: [id number] Limit of detection (LOD): 0.2% These results and cytograms have been verified by Dr. Reyes. This test was developed and its performance characteristics verified by [employer]. It has not been cleared or approved [...] Fay, 11/19/2023 1:15 PM 11/20/2023 4:38 PM COUNTY ATTORNEY [facility] LABORATORY Other Testing Immunostains were performed on the bone core biopsy. CD3 (T cell marker): ??appropriate in number and distribution CD20 (B cell marker): Not increased CD138 (plasma cell marker): Not increased 11/20/2023 4:38 PM COUNTY ATTORNEY [facility] LABORATORY-[facility] LAB[facility]ATORY Additional Information Interpreted at [facility], Central Laboratory - [address], [place] [address] 11/20/2023 4:38 PM COUNTY ATTORNEY [facility] LABORATORY-C ENTRAL LABORATORY Bone Marrow (Bone Marrow Aspirate) 11/18/2023 12:15 PM COUNTY ATTORNEY 11/18/2023 8:49 PM COUNTY ATTORNEY Bone marrow specimen (specimen) (Bone Marrow Aspirate (Heparinized)) 11/18/2023 12:15 PM COUNTY ATTORNEY 11/18/2023 8:49 PM COUNTY ATTORNEY Bone marrow specimen (specimen) (Bone Marrow Core Biopsy) 11/18/2023 12:15 PM COUNTY ATTORNEY 11/18/2023 8:49 PM COUNTY ATTORNEY Bone marrow specimen (specimen) (Peripheral Blood) 11/18/2023 12:15 PM COUNTY ATTORNEY 11/18/2023 8:49 PM COUNTY ATTORNEY Danielle Sanchez MD LABORATORY [facility] LABORATORY-CENTRAL LABORATORY [address] [place] [address], * (ABNORMAL) LIPID PANEL W REFLEX MEASURED LDL (10/01/2011 10:00 AM COUNTY ATTORNEY) CHOLESTEROL,TOTAL 143 110 - 199 mg/dL [facility] TRIGLYCERIDES 139 <150 mg/dL [facility] HDL CHOLESTEROL 36(L) >40 mg/dL [facility] CHOL/HDL RATIO 3.97 <4.51 [facility] LDL CHOLESTEROL 79 <131 mg/dL [facility] PATIENT STATUS Fasting [facility] Blood specimen (specimen) BLOOD SPECIMEN / Unknown 10/01/2011 10:00 AM COUNTY ATTORNEY 10/01/2011 9:51 AM COUNTY ATTORNEY Kristy Kingsley MD CHEMISTRY [facility] [address] [place] [address] from Last 3 Months or Most Recently Relevant to Health Maintenance Care Teams Caddy Packer Relationship Specialty Start Date End Date Pcp, No . PCP - General 05/01/23
--- NOTE | 2024-02-03 08:00 | CT_ITS ---
Patient: YANCY ORNELAS Facility:?[facility] Patient ID:?[id number] Site Patient ID:?[id number] Site :?1965 Study:?CT-Pelvis W/IV-02/03/2024 8:31:12 AM Ordering Physician:CAMILO Final Report: Indication: Lymphoma Technique: Post-contrast CT pelvis. 89 cc Isovue 370 intravenous contrast. Please note that all CT scans at this facility use dose modulation, iterative reconstruction, and/or weight-based dosing when appropriate to reduce radiation dose to as low as reasonably achievable. Comparison: 11/21/2023 CT, 11/06/2023 CT PET Findings: Postop changes to the left inguinal region. Decreased amount of fluid attenuation associated with surgical clips. No abscess. No enlarged lymph nodes. Appendix normal. No bowel obstruction. Sigmoid diverticulosis. Bladder is moderately distended. Normal visualized ureters. No hernia. Degenerative disc disease L5-S1. No fracture. Stable circumscribed none metabolic lucency within the right proximal femur. Stable bone islands within the right femoral head. Impression: Decreased fluid associated with the postop changes involving the left inguinal canal subcutaneous fat. No suspicious findings. Please note that all CT scans at this facility use dose modulation, iterative reconstruction, and/or weight-based dosing when appropriate to reduce radiation dose to as low as reasonably achievable. Dictated by Eddi Mcguire MD @ 02/03/2024 8:48:32 AM Signed by:?Eddi Mcguire MD @02/03/2024 8:48:32 AM (Electronic Signature)
== END 2024-02-03 07:55 | disposition home or self-care (01) ==
LOC: CT 07:54
PROVIDERS: PCP Nurse Practitioner Family; Visit Provider Internal Medicine Hematology & Oncology
DX: C85.10 Unspecified B-cell lymphoma, unspecified site (principal)
CPT/HCPCS: 72193; Q9967

== ENCOUNTER 2024-05-07 12:45 | Outpatient (RCR) | payer OTHER, SELFPAY ==
[2023-11-11 12:51] LABS: Hepatitis B Surface Antigen* Negative (Negative)
[2023-11-11 13:08] LABS: Hepatitis C Virus Antibody* Negative (Negative)
[2023-11-12 19:25] LABS: Hepatitis B Core Antibody, IgM Negative (Negative)
--- NOTE | 2023-12-06 14:16 | URNOTE ---
Request received for authorization for Rituxan-abbs (Truxima) ([id number]). Prior authorization is approved per [facility] auth #[id number], for date range: 12/05/2023 to 06/02/2024.
[2023-12-10 15:49] LABS: Albumin* 4.5 g/dL (3.3-5.0); Chloride* 101 mmol/L (96-114)
[2023-12-10 15:50] LABS: Sodium* 138 mmol/L (135-149)
[2023-12-10 15:52] LABS: Anion Gap 10 mEq/L (7-15); Aspartate Amino Transferase* 25 U/L (12-35); Carbon Dioxide* 27 mmol/L (20-32); Estimated Glomerular Filt Rate 88 ml/min
[2023-12-10 15:53] LABS: Alanine Aminotransferase* 28 U/L (4-50); Alkaline Phosphatase* 113 U/L (40-150); Blood Urea Nitrogen* 20 mg/dL (7-30); Calcium* 9.6 mg/dL (8.4-10.6); Glucose* 106 mg/dL (60-115); Total Protein* 7.5 g/dL (6.0-8.3)
[2023-12-10 16:06] LABS: Basophils Percent Auto 0.3 % (0.0-3.0); Eosinophils Percent Auto 1.5 % (0.0-7.0); Hematocrit 48.6 % (37.0-53.0); Hemoglobin* 15.7 gm/dL (13.5-17.5); Immature Granulocytes Pct Auto 0.2 %; Lymphocytes Percent Auto 19.8 % (20-44); Mean Corpuscular HGB Conc 32 gm/dL (32-36); Mean Corpuscular Hemoglobin 27 pg (26-34); Mean Corpuscular Volume 85 fL (80-100); Monocytes Percent Auto 5.8 % (0.0-11.0); Neutrophils Percent Auto 72.4 % (42.0-72.0); Platelet Count* 355 K/uL (140-440); RDW Coefficient of Variation % 12.8 % (11.5-15.5); Red Blood Count 5.73 m/uL (4.30-5.90); White Blood Count* 14.54 K/uL (4.50-11.00)
[2023-12-10 16:32] LABS: Slide Review Reflex No
[2023-12-11] VITALS (8 sets, daily range): BP systolic 118–143; BP diastolic 73–90; PULSE 68–89; RESP 16–18; TEMP 36.3–36.8; O2SAT 97–100
[2023-12-11] MEDS: ACETAMINOPHEN 325 MG TABLET 650 MG PO (09:08)
[2023-12-11] MEDS: diphenhydrAMINE 50 MG in 0.9 % SODIUM CHLORIDE 100 ml 100 ML 404 MG IVPB (09:08)
--- NOTE | 2023-12-11 09:23 | ONC.NURNOTE ---
PSDS =3 patient reports feeling comfortable with the plan PSDS reports fears, nervousness and denies need for SS visit when asked
[2023-12-11] MEDS: TUBING PRIMARY IV (09:52)
[2023-12-11] MEDS: [UNRECOGNIZED DRUG - OTHER] IV (09:52)
[2023-12-11] MEDS: RITUXIMAB ABBS IV (09:52)
--- NOTE | 2023-12-11 15:11 | ONC.NURNOTE ---
Pt here for 1st Truxima. VSS. Pt states he has been having night sweats this every night for approx 7 nights. Also was seen in the ED x2 earlier this month for kidney stones, placed on antibiotics at that time. WBC slightly elevated. Polymerization Helper discussed symptoms with Dr. Sanchez, per Dr. Daniel joyce to proceed with 1st Truxima today. Pt tolerated infusion well without difficulty.
--- NOTE | 2023-12-12 13:59 | ONC.NURNOTE ---
patient called at 0900 this am to report night and am went well slept well ate dinner and breakfast no fevers feeling well today reminded to call with any changes or concerns
[2023-12-18 08:28] LABS: Basophils Absolute Auto 0.04 K/uL (0.00-0.30); Basophils Percent Auto 0.6 % (0.0-3.0); Eosinophils Absolute Auto 0.31 K/uL (0.00-0.50); Eosinophils Percent Auto 4.3 % (0.0-7.0); Hematocrit 46.7 % (37.0-53.0); Hemoglobin* 15.2 gm/dL (13.5-17.5); Immature Granulocytes Abs Auto 0.01 K/uL (0.00-0.30); Immature Granulocytes Pct Auto 0.1 %; Lymphocytes Absolute Auto 2.16 K/uL (0.90-2.90); Lymphocytes Percent Auto 29.8 % (20-44); Mean Corpuscular HGB Conc 33 gm/dL (32-36); Mean Corpuscular Hemoglobin 28 pg (26-34); Mean Corpuscular Volume 85 fL (80-100); Neutrophils Absolute Auto 4.15 K/uL (1.7-7.0); Neutrophils Percent Auto 57.2 % (42.0-72.0); Platelet Count* 264 K/uL (140-440); White Blood Count* 7.25 K/uL (4.50-11.00)
[2023-12-18 08:29] VITALS: BP 143/88; PULSE 74; RESP 16; TEMP 36.2; O2SAT 99
[2023-12-18 08:32] LABS: Slide Review Reflex No
[2023-12-18 08:53] LABS: Albumin* 4.4 g/dL (3.3-5.0); Chloride* 102 mmol/L (96-114)
[2023-12-18 08:54] LABS: Sodium* 139 mmol/L (135-149)
[2023-12-18 08:56] LABS: Alkaline Phosphatase* 112 U/L (40-150); Anion Gap 11 mEq/L (7-15); Aspartate Amino Transferase* 26 U/L (12-35); Bilirubin Total* 0.7 mg/dL (0.1-1.5); Blood Urea Nitrogen* 16 mg/dL (7-30); Carbon Dioxide* 26 mmol/L (20-32); Creatinine* 0.8 mg/dL (0.5-1.5); Est. Creatinine Clearance* 101.88; Estimated Glomerular Filt Rate 103 ml/min; Total Protein* 7.3 g/dL (6.0-8.3)
[2023-12-18 08:57] LABS: Alanine Aminotransferase* 27 U/L (4-50); Calcium* 9.4 mg/dL (8.4-10.6); Glucose* 102 mg/dL (60-115)
[2023-12-18] MEDS: ACETAMINOPHEN 325 MG TABLET 650 MG PO (09:13)
[2023-12-18] MEDS: diphenhydrAMINE 50 MG in 0.9 % SODIUM CHLORIDE 100 ml 100 ML 404 MG IVPB (09:27)
[2023-12-18] MEDS: TUBING PRIMARY IV (10:04)
[2023-12-18] MEDS: [UNRECOGNIZED DRUG - OTHER] IV (10:04)
[2023-12-18] MEDS: RITUXIMAB ABBS IV (10:04)
[2023-12-18 10:38] VITALS: BP 142/88; PULSE 65; RESP 16; TEMP 36.3; O2SAT 98
[2023-12-18 11:14] VITALS: BP 133/88; PULSE 61; RESP 16; TEMP 36.3; O2SAT 99
[2023-12-18 11:48] VITALS: BP 134/91; PULSE 64; RESP 18; TEMP 36.4; O2SAT 99
[2023-12-18 13:00] VITALS: BP 138/87; PULSE 69; RESP 16; TEMP 36.4; O2SAT 100
--- NOTE | 2023-12-19 10:15 | ONC.NURNOTE ---
Pt here for Truxima on 12/18/23. Pt wondering if he should restart ASA 81mg daily. He stopped it early September prior to his surgery. Wind Turbine Technician discussed with Corinna Leigh APRN and okay to resume ASA 81mg daily. Message left for pt with this information.
[2023-12-24 08:24] LABS: Basophils Absolute Auto 0.05 K/uL (0.00-0.30); Basophils Percent Auto 0.6 % (0.0-3.0); Eosinophils Absolute Auto 0.39 K/uL (0.00-0.50); Hematocrit 46.3 % (37.0-53.0); Hemoglobin* 15.1 gm/dL (13.5-17.5); Immature Granulocytes Abs Auto 0.03 K/uL (0.00-0.30); Immature Granulocytes Pct Auto 0.4 %; Lymphocytes Absolute Auto 2.53 K/uL (0.90-2.90); Lymphocytes Percent Auto 32.5 % (20-44); Mean Corpuscular HGB Conc 33 gm/dL (32-36); Mean Corpuscular Hemoglobin 28 pg (26-34); Mean Corpuscular Volume 84 fL (80-100); Monocytes Percent Auto 8.4 % (0.0-11.0); Neutrophils Absolute Auto 4.13 K/uL (1.7-7.0); Neutrophils Percent Auto 53.1 % (42.0-72.0); Platelet Count* 255 K/uL (140-440); RDW Coefficient of Variation % 13.3 % (11.5-15.5); Red Blood Count 5.49 m/uL (4.30-5.90); White Blood Count* 7.78 K/uL (4.50-11.00)
[2023-12-24 08:26] LABS: Slide Review Reflex No
[2023-12-24 08:35] LABS: Albumin* 4.3 g/dL (3.3-5.0); Chloride* 106 mmol/L (96-114); Potassium* 4.3 mmol/L (3.6-5.1); Sodium* 139 mmol/L (135-149)
[2023-12-24 08:37] LABS: Creatinine* 0.9 mg/dL (0.5-1.5); Est. Creatinine Clearance* 90.56; Estimated Glomerular Filt Rate 100 ml/min
[2023-12-24 08:38] LABS: Alanine Aminotransferase* 30 U/L (4-50); Alkaline Phosphatase* 96 U/L (40-150); Anion Gap 9 mEq/L (7-15); Aspartate Amino Transferase* 28 U/L (12-35); Bilirubin Total* 0.8 mg/dL (0.1-1.5); Blood Urea Nitrogen* 21 mg/dL (7-30); Carbon Dioxide* 24 mmol/L (20-32); Glucose* 128 mg/dL (60-115); Total Protein* 7.1 g/dL (6.0-8.3)
[2023-12-24 08:39] LABS: Calcium* 9.1 mg/dL (8.4-10.6)
[2023-12-25 08:39] VITALS: BP 143/93; PULSE 88; RESP 16; TEMP 36.6; O2SAT 99
[2023-12-25] MEDS: ACETAMINOPHEN 325 MG TABLET 650 MG PO (08:49)
[2023-12-25] MEDS: diphenhydrAMINE 50 MG in 0.9 % SODIUM CHLORIDE 100 ml 100 ML 404 MG IVPB (09:11)
[2023-12-25] MEDS: RITUXIMAB ABBS IV (09:44)
[2023-12-25] MEDS: TUBING PRIMARY IV (09:44)
[2023-12-25] MEDS: [UNRECOGNIZED DRUG - OTHER] IV (09:44)
[2023-12-25 10:16] VITALS: BP 133/82; PULSE 67; RESP 18; TEMP 36.6; O2SAT 96
[2023-12-25 11:26] VITALS: BP 134/86; PULSE 75; RESP 18; TEMP 36.6; O2SAT 95
[2024-01-06 08:18] LABS: Basophils Absolute Auto 0.05 K/uL (0.00-0.30); Basophils Percent Auto 0.7 % (0.0-3.0); Eosinophils Absolute Auto 0.31 K/uL (0.00-0.50); Eosinophils Percent Auto 4.1 % (0.0-7.0); Hematocrit 48.6 % (37.0-53.0); Hemoglobin* 15.7 gm/dL (13.5-17.5); Immature Granulocytes Abs Auto 0.02 K/uL (0.00-0.30); Immature Granulocytes Pct Auto 0.3 %; Lymphocytes Absolute Auto 2.32 K/uL (0.90-2.90); Lymphocytes Percent Auto 30.4 % (20-44); Mean Corpuscular HGB Conc 32 gm/dL (32-36); Mean Corpuscular Hemoglobin 28 pg (26-34); Mean Corpuscular Volume 85 fL (80-100); Monocytes Percent Auto 9.6 % (0.0-11.0); Neutrophils Absolute Auto 4.21 K/uL (1.7-7.0); Neutrophils Percent Auto 54.9 % (42.0-72.0); Platelet Count* 291 K/uL (140-440); RDW Coefficient of Variation % 13.7 % (11.5-15.5); White Blood Count* 7.64 K/uL (4.50-11.00)
[2024-01-06 08:19] LABS: Slide Review Reflex No
[2024-01-06 08:25] VITALS: BP 127/86; PULSE 80; RESP 16; TEMP 36.1; O2SAT 99
[2024-01-06 08:36] LABS: Albumin* 4.4 g/dL (3.3-5.0); Chloride* 103 mmol/L (96-114)
[2024-01-06 08:37] LABS: Potassium* 4.3 mmol/L (3.6-5.1); Sodium* 139 mmol/L (135-149)
[2024-01-06 08:39] LABS: Anion Gap 8 mEq/L (7-15); Bilirubin Total* 0.9 mg/dL (0.1-1.5); Carbon Dioxide* 28 mmol/L (20-32); Creatinine* 1.1 mg/dL (0.5-1.5); Est. Creatinine Clearance* 74.09; Estimated Glomerular Filt Rate 78 ml/min
[2024-01-06 08:40] LABS: Alanine Aminotransferase* 25 U/L (4-50); Alkaline Phosphatase* 86 U/L (40-150); Aspartate Amino Transferase* 27 U/L (12-35); Blood Urea Nitrogen* 22 mg/dL (7-30); Calcium* 9.2 mg/dL (8.4-10.6); Glucose* 108 mg/dL (60-115); Total Protein* 7.2 g/dL (6.0-8.3)
[2024-01-06] MEDS: ACETAMINOPHEN 325 MG TABLET 650 MG PO (09:30)
[2024-01-06] MEDS: diphenhydrAMINE 50 MG in 0.9 % SODIUM CHLORIDE 100 ml 100 ML 404 MG IVPB (09:31)
[2024-01-06] MEDS: TUBING PRIMARY IV (10:08)
[2024-01-06] MEDS: [UNRECOGNIZED DRUG - OTHER] IV (10:08)
[2024-01-06] MEDS: RITUXIMAB ABBS IV (10:08)
[2024-01-06 10:43] VITALS: BP 128/86; PULSE 60; RESP 18; TEMP 36.4; O2SAT 98
[2024-01-06 11:56] VITALS: BP 127/85; PULSE 60; RESP 18; TEMP 36.3; O2SAT 97
[2024-01-13 08:35] VITALS: BP 122/82; PULSE 83; RESP 16; TEMP 35.9; O2SAT 97
[2024-01-13 08:35] LABS: Basophils Absolute Auto 0.05 K/uL (0.00-0.30); Basophils Percent Auto 0.7 % (0.0-3.0); Eosinophils Absolute Auto 0.29 K/uL (0.00-0.50); Eosinophils Percent Auto 4.1 % (0.0-7.0); Hematocrit 46.4 % (37.0-53.0); Hemoglobin* 15.6 gm/dL (13.5-17.5); Immature Granulocytes Abs Auto 0.02 K/uL (0.00-0.30); Immature Granulocytes Pct Auto 0.3 %; Lymphocytes Absolute Auto 1.73 K/uL (0.90-2.90); Lymphocytes Percent Auto 24.2 % (20-44); Mean Corpuscular HGB Conc 34 gm/dL (32-36); Mean Corpuscular Hemoglobin 28 pg (26-34); Mean Corpuscular Volume 84 fL (80-100); Monocytes Percent Auto 9.1 % (0.0-11.0); Neutrophils Absolute Auto 4.42 K/uL (1.7-7.0); Neutrophils Percent Auto 61.6 % (42.0-72.0); Platelet Count* 271 K/uL (140-440); RDW Coefficient of Variation % 13.8 % (11.5-15.5); Red Blood Count 5.51 m/uL (4.30-5.90); White Blood Count* 7.16 K/uL (4.50-11.00)
[2024-01-13 08:44] LABS: Slide Review Reflex No
[2024-01-13 08:49] LABS: Albumin* 4.4 g/dL (3.3-5.0); Chloride* 104 mmol/L (96-114); Potassium* 4.4 mmol/L (3.6-5.1); Sodium* 138 mmol/L (135-149)
[2024-01-13 08:51] LABS: Estimated Glomerular Filt Rate 88 ml/min
[2024-01-13 08:52] LABS: Alanine Aminotransferase* 27 U/L (4-50); Alkaline Phosphatase* 83 U/L (40-150); Anion Gap 6 mEq/L (7-15); Aspartate Amino Transferase* 31 U/L (12-35); Bilirubin Total* 1.3 mg/dL (0.1-1.5); Blood Urea Nitrogen* 23 mg/dL (7-30); Calcium* 9.6 mg/dL (8.4-10.6); Carbon Dioxide* 28 mmol/L (20-32); Glucose* 98 mg/dL (60-115); Total Protein* 7.1 g/dL (6.0-8.3)
[2024-01-13] MEDS: SODIUM CHLORIDE 0.9 % (FLUSH) 10 ML SYRINGE IVF (09:30)
[2024-01-13] MEDS: ACETAMINOPHEN 325 MG TABLET 650 MG PO (09:30)
[2024-01-13] MEDS: 0.9 % SODIUM CHLORIDE 250 ml IV (09:30)
[2024-01-13] MEDS: diphenhydrAMINE 50 MG in 0.9 % SODIUM CHLORIDE 100 ml 100 ML 400 MG IVPB (09:39)
[2024-01-13] MEDS: TUBING PRIMARY IV (10:28)
[2024-01-13] MEDS: [UNRECOGNIZED DRUG - OTHER] IV (10:28)
[2024-01-13] MEDS: RITUXIMAB ABBS IV (10:28)
[2024-01-13 11:01] VITALS: BP 131/83; PULSE 78; RESP 16; TEMP 36.4; O2SAT 96
[2024-01-13 12:08] VITALS: BP 134/85; PULSE 62; RESP 16; TEMP 35.9; O2SAT 99
[2024-01-20 12:37] LABS: Basophils Absolute Auto 0.06 K/uL (0.00-0.30); Eosinophils Absolute Auto 0.19 K/uL (0.00-0.50); Eosinophils Percent Auto 3.3 % (0.0-7.0); Hematocrit 47.4 % (37.0-53.0); Hemoglobin* 15.7 gm/dL (13.5-17.5); Immature Granulocytes Abs Auto 0.01 K/uL (0.00-0.30); Immature Granulocytes Pct Auto 0.2 %; Lymphocytes Absolute Auto 1.36 K/uL (0.90-2.90); Lymphocytes Percent Auto 23.3 % (20-44); Mean Corpuscular HGB Conc 33 gm/dL (32-36); Mean Corpuscular Hemoglobin 28 pg (26-34); Mean Corpuscular Volume 85 fL (80-100); Monocytes Percent Auto 13.6 % (0.0-11.0); Neutrophils Absolute Auto 3.42 K/uL (1.7-7.0); Neutrophils Percent Auto 58.6 % (42.0-72.0); Platelet Count* 220 K/uL (140-440); RDW Coefficient of Variation % 13.7 % (11.5-15.5); Red Blood Count 5.56 m/uL (4.30-5.90); White Blood Count* 5.83 K/uL (4.50-11.00)
[2024-01-20 12:46] LABS: Slide Review Reflex No
[2024-01-20 12:57] LABS: Albumin* 4.5 g/dL (3.3-5.0); Chloride* 104 mmol/L (96-114); Potassium* 4.3 mmol/L (3.6-5.1); Sodium* 139 mmol/L (135-149)
[2024-01-20 12:59] LABS: Anion Gap 8 mEq/L (7-15); Aspartate Amino Transferase* 27 U/L (12-35); Bilirubin Total* 1.1 mg/dL (0.1-1.5); Carbon Dioxide* 27 mmol/L (20-32); Estimated Glomerular Filt Rate 88 ml/min
[2024-01-20 13:00] LABS: Alanine Aminotransferase* 28 U/L (4-50); Alkaline Phosphatase* 87 U/L (40-150); Blood Urea Nitrogen* 21 mg/dL (7-30); Calcium* 9.3 mg/dL (8.4-10.6); Glucose* 94 mg/dL (60-115); Total Protein* 7.4 g/dL (6.0-8.3)
[2024-01-21 12:16] VITALS: BP 136/91; PULSE 78; RESP 16; TEMP 35.8; O2SAT 100
[2024-01-21] MEDS: 0.9 % SODIUM CHLORIDE 250 ml IV (12:46)
[2024-01-21] MEDS: diphenhydrAMINE 25 MG CAPSULE 50 MG PO (12:46)
[2024-01-21] MEDS: ACETAMINOPHEN 325 MG TABLET 650 MG PO (12:47)
[2024-01-21] MEDS: SODIUM CHLORIDE 0.9 % (FLUSH) 10 ML SYRINGE IVF (12:47)
[2024-01-21] MEDS: TUBING PRIMARY IV (13:20)
[2024-01-21] MEDS: [UNRECOGNIZED DRUG - OTHER] IV (13:20)
[2024-01-21] MEDS: RITUXIMAB ABBS IV (13:20)
[2024-01-21 14:59] VITALS: BP 134/89; PULSE 65; RESP 18; TEMP 36.2; O2SAT 100
[2024-01-27 09:37] LABS: Basophils Absolute Auto 0.04 K/uL (0.00-0.30); Basophils Percent Auto 0.7 % (0.0-3.0); Eosinophils Absolute Auto 0.23 K/uL (0.00-0.50); Eosinophils Percent Auto 3.9 % (0.0-7.0); Hematocrit 46.4 % (37.0-53.0); Hemoglobin* 15.6 gm/dL (13.5-17.5); Immature Granulocytes Abs Auto 0.02 K/uL (0.00-0.30); Immature Granulocytes Pct Auto 0.3 %; Lymphocytes Percent Auto 18.8 % (20-44); Mean Corpuscular HGB Conc 34 gm/dL (32-36); Mean Corpuscular Hemoglobin 28 pg (26-34); Mean Corpuscular Volume 84 fL (80-100); Monocytes Percent Auto 12.3 % (0.0-11.0); Neutrophils Absolute Auto 3.75 K/uL (1.7-7.0); Platelet Count* 187 K/uL (140-440); RDW Coefficient of Variation % 13.7 % (11.5-15.5); Red Blood Count 5.53 m/uL (4.30-5.90); White Blood Count* 5.86 K/uL (4.50-11.00)
[2024-01-27 09:38] LABS: Albumin* 4.3 g/dL (3.3-5.0); Chloride* 106 mmol/L (96-114); Sodium* 137 mmol/L (135-149)
[2024-01-27 09:39] LABS: Potassium* 4.3 mmol/L (3.6-5.1)
[2024-01-27 09:40] LABS: Slide Review Reflex No
[2024-01-27 09:41] LABS: Alkaline Phosphatase* 88 U/L (40-150); Anion Gap 8 mEq/L (7-15); Aspartate Amino Transferase* 25 U/L (12-35); Carbon Dioxide* 23 mmol/L (20-32); Estimated Glomerular Filt Rate 88 ml/min; Total Protein* 7.2 g/dL (6.0-8.3)
[2024-01-27 09:42] LABS: Alanine Aminotransferase* 23 U/L (4-50); Blood Urea Nitrogen* 19 mg/dL (7-30); Calcium* 9.3 mg/dL (8.4-10.6); Glucose* 110 mg/dL (60-115)
[2024-01-27] MEDS: ACETAMINOPHEN 325 MG TABLET 650 MG PO (10:21)
[2024-01-27] MEDS: diphenhydrAMINE 25 MG CAPSULE 50 MG PO (10:22)
[2024-01-27] MEDS: RITUXIMAB ABBS IV (11:04)
[2024-01-27] MEDS: [UNRECOGNIZED DRUG - OTHER] IV (11:04)
[2024-01-27] MEDS: TUBING PRIMARY IV (11:04)
[2024-01-27 11:33] VITALS: BP 133/91; PULSE 69; RESP 16; TEMP 36.6; O2SAT 95
[2024-02-03 08:38] LABS: Basophils Absolute Auto 0.04 K/uL (0.00-0.30); Basophils Percent Auto 0.7 % (0.0-3.0); Eosinophils Absolute Auto 0.25 K/uL (0.00-0.50); Eosinophils Percent Auto 4.5 % (0.0-7.0); Hematocrit 43.9 % (37.0-53.0); Hemoglobin* 14.7 gm/dL (13.5-17.5); Immature Granulocytes Abs Auto 0.02 K/uL (0.00-0.30); Immature Granulocytes Pct Auto 0.4 %; Mean Corpuscular HGB Conc 34 gm/dL (32-36); Mean Corpuscular Hemoglobin 29 pg (26-34); Mean Corpuscular Volume 85 fL (80-100); Monocytes Percent Auto 12.1 % (0.0-11.0); Neutrophils Absolute Auto 3.61 K/uL (1.7-7.0); Neutrophils Percent Auto 64.3 % (42.0-72.0); Platelet Count* 174 K/uL (140-440); RDW Coefficient of Variation % 13.8 % (11.5-15.5); Red Blood Count 5.16 m/uL (4.30-5.90); White Blood Count* 5.61 K/uL (4.50-11.00)
[2024-02-03 08:43] LABS: Slide Review Reflex No
[2024-02-03 08:49] LABS: Albumin* 3.8 g/dL (3.3-5.0); Chloride* 107 mmol/L (96-114)
[2024-02-03 08:50] LABS: Potassium* 4.1 mmol/L (3.6-5.1); Sodium* 137 mmol/L (135-149)
[2024-02-03 08:52] LABS: Alkaline Phosphatase* 88 U/L (40-150); Anion Gap 3 mEq/L (7-15); Aspartate Amino Transferase* 23 U/L (12-35); Bilirubin Total* 0.7 mg/dL (0.1-1.5); Blood Urea Nitrogen* 19 mg/dL (7-30); Carbon Dioxide* 27 mmol/L (20-32); Creatinine* 0.9 mg/dL (0.5-1.5); Est. Creatinine Clearance* 90.56; Estimated Glomerular Filt Rate 100 ml/min; Total Protein* 6.4 g/dL (6.0-8.3)
[2024-02-03 08:53] LABS: Alanine Aminotransferase* 21 U/L (4-50); Calcium* 8.9 mg/dL (8.4-10.6); Glucose* 110 mg/dL (60-115)
[2024-02-03 11:32] VITALS: BP 136/95; PULSE 72; RESP 16; TEMP 36; O2SAT 98
[2024-02-03] MEDS: diphenhydrAMINE 25 MG CAPSULE 50 MG PO (11:44)
[2024-02-03] MEDS: ACETAMINOPHEN 325 MG TABLET 650 MG PO (11:44)
[2024-02-03] MEDS: SODIUM CHLORIDE 0.9 % (FLUSH) 10 ML SYRINGE IVF (11:48)
[2024-02-03] MEDS: 0.9 % SODIUM CHLORIDE 250 ml IV (11:48)
[2024-02-03] MEDS: TUBING PRIMARY IV (12:23)
[2024-02-03] MEDS: RITUXIMAB ABBS IV (12:23)
[2024-02-03] MEDS: [UNRECOGNIZED DRUG - OTHER] IV (12:23)
[2024-02-03 12:54] VITALS: BP 135/81; PULSE 62; RESP 14; TEMP 36.4; O2SAT 96
[2024-05-07 13:08] LABS: Basophils Absolute Auto 0.04 K/uL (0.00-0.30); Basophils Percent Auto 0.6 % (0.0-3.0); Eosinophils Absolute Auto 0.16 K/uL (0.00-0.50); Eosinophils Percent Auto 2.2 % (0.0-7.0); Hematocrit 48.6 % (37.0-53.0); Hemoglobin* 16.1 gm/dL (13.5-17.5); Immature Granulocytes Abs Auto 0.01 K/uL (0.00-0.30); Immature Granulocytes Pct Auto 0.1 %; Mean Corpuscular HGB Conc 33 gm/dL (32-36); Mean Corpuscular Hemoglobin 28 pg (26-34); Mean Corpuscular Volume 85 fL (80-100); Monocytes Percent Auto 9.6 % (0.0-11.0); Neutrophils Absolute Auto 4.51 K/uL (1.7-7.0); Neutrophils Percent Auto 62.5 % (42.0-72.0); Platelet Count* 225 K/uL (140-440); RDW Coefficient of Variation % 12.8 % (11.5-15.5); Red Blood Count 5.71 m/uL (4.30-5.90); White Blood Count* 7.21 K/uL (4.50-11.00)
[2024-05-07 13:37] LABS: Slide Review Reflex No
[2024-05-07 13:41] LABS: Albumin* 4.7 g/dL (3.3-5.0); Chloride* 101 mmol/L (96-114); Potassium* 4.4 mmol/L (3.6-5.1); Sodium* 133 mmol/L (135-149)
[2024-05-07 13:43] LABS: Est. Creatinine Clearance* 80.52; Estimated Glomerular Filt Rate 87 ml/min
[2024-05-07 13:44] LABS: Alanine Aminotransferase* 23 U/L (4-50); Alkaline Phosphatase* 83 U/L (40-150); Anion Gap 13 mEq/L (7-15); Aspartate Amino Transferase* 43 U/L (12-35); Blood Urea Nitrogen* 23 mg/dL (7-30); Calcium* 9.1 mg/dL (8.4-10.6); Carbon Dioxide* 19 mmol/L (20-32); Glucose* 86 mg/dL (60-115); Lactate Dehydrogenase* 240 U/L (120-246); Total Protein* 7.5 g/dL (6.0-8.3)
== END 2024-05-09 23:59 | disposition home or self-care (01) ==
LOC: CCIC 12:45
PROVIDERS: Clinical Nurse Specialist; PCP Nurse Practitioner Family; Referring Provider Nurse Practitioner Family; Visit Provider Internal Medicine Hematology & Oncology
DX: C85.10 Unspecified B-cell lymphoma, unspecified site (principal)
CPT/HCPCS: 36415; 72193; 80053; 83615; 85025; 86705; 86803; 87340; 96376; 96413; 96415; 99202; 99205; 99211; 99214; 99215; G0463; A9270; J1200; J7030; J7050; Q5115; Q9967

== ENCOUNTER 2024-05-07 12:57 | Outpatient (CLI) | payer OTHER, SELFPAY ==
--- OUTSIDE RECORDS SUMMARY | 2024-05-07 13:00 | XMS_ITS ---
Author Organization [facility] Address [address] [place] [address] Care Team Providers Care Adult School Teacher Name Role Phone Unavailable Unavailable Unavailable Surgery Details Not on file Complications Check Surgery Details section. Procedure Estimated Blood Loss Check Surgery Details section. Procedure Findings Check Surgery Details section. Procedure Specimens Taken Check Surgery Details section.
--- OUTSIDE RECORDS SUMMARY | 2024-05-07 13:00 | XMS_ITS ---
Author Organization [facility] [place] [facility] Address [address] [place] [address] Care Team Providers Care Office Worker Name Role Phone Unavailable Primary Care [...] Treated Prescribed Fraction Dose Prescribed Total Dose [id number] 01/21/2024 15 12 of 12 200 cGy 2,400 cG y Reference Point Last Treated On Elapsed Days Session Dose Total Dose [id number] 01/21/2024 15 200 cGy 2,400 cGy
--- OUTSIDE RECORDS SUMMARY | 2024-05-07 13:00 | XMS_ITS | Encounter Summary ---
Author Organization [facility] Address [address] [place] [address] Care Team Providers Care Global Marketing Manager Name Role Phone Unavailable Primary Care Provider Unavailabl e Encounter Details Date Type Department Care Team (Late st Contact Info) Description 01/21/2024 Documentation Department of Radiation Oncology in [place], [place] [address] [place] [address] Saman Morfin M.D. [address] [place] [address] Social History Tobacco Use Types Packs/Day Years Used Date Smoking Tobacco: Never Smokeless Tobacco: Never Alcohol Use Standard Drinks/Week Comments Not Currently 0 (1 standard drink = 0.6 oz pur e alcohol) [facility] Utilities Answer Date Recorded In the [...] your living situation today? I have a [facility] place to live 01/05/2024 Sex and Gender Information Value Date Recorded Sex Assigned at Male 01/05/2024 12:37 PM CDT Gender Identity Male 01/05/2024 12:37 PM CDT Sexual Orientation Straight 01/05/2024 12 :37 PM CDT documented as of this encounter Miscellaneous Notes * Radiation Completion Notes - Lisa Calles R.N. - 01/21/2024 11:59 PM CDT DIAGNOSIS: 1. Marginal Zone Lymphoma Jona (HCC) Attending Physician: Saman Morfin M.D. ([phone]) Treatment Intent: Curative Concomitant Therapy: Rituximab Single Plan Treatment Course: 1xInguinal Plan ID Fractions Dose / Fraction (cGy) Dose Treated (cGy) Dose Planned (cGy) First Treatment Last Treatment Elapsed Days [id number] 200 2400 2400 01/06/2024 01/21/2024 15 Course Summary 01/06/2024 01/21/2024 15 Radiation Modality: Photons CLINICAL SUMMARY Esau Nelson completed radiation treatment as planned without interruptions. The course of treatment was tolerated well. The patient experienced no toxicities during radiation treatment. TREATMENT RESPONSE: Response to treatment will be determined by post-treatment imaging and/or laboratory work. RECOMMENDED FOLLOW UP: Primary Medical Oncologist. He will continue his follow- up with Dr. Sanchez. Dr. Morfin will review his next imaging that she will order, but Dr. Morfin will not schedule a formal follow-up with him. Signed by: Lisa Calles R.N., 02/03/2024 12:44 PM CDT [facility] [address] [place] [address] documented in this encounter Plan of Treatment Not on file documented as of this encounter Visit Diagnoses Diagnosis Marginal Zone Lymphoma Jona (HCC)- Primary documented in this encounter
--- OUTSIDE RECORDS SUMMARY | 2024-05-07 13:00 | XMS_ITS | Referral Summary ---
Author Organization [facility] Address [address] [place] [address] Care Team Providers Care Direct Service Professional Name Role Phone Unavailable Primary Care Provider Unavailabl e Source Comments Patient records contain information from all sites at [facility]. For routine questions regarding patient records, call [phone] during business hours, M-F 8:00 AM - 5:00 PM Central Time. Record requests for emergency care only can be directed to [phone] at any time.[facility] Allergies Active Allergy Reactions Criticality Noted Date [...] drink = 0.6 oz pur e alcohol) [facility] Utilities Answer Date Recorded In the past 12 months has e [employer] gas, oil, or water company threatened to [...] your living situation today? I have a [facility] place to live 01/05/2024 Sex and [...]
--- OUTSIDE RECORDS SUMMARY | 2024-05-07 13:00 | XMS_ITS | Clinical Summary ---
Author Organization [facility] Address [place], [place] [address] Care Team Providers Care Manager Of Health Name Role Phone Pcp, No Primary Care Provider Unavailabl e Allergies Active Allergy Reactions Criticality Noted Date Comments Penicillins *Unknown - Childhood Rxn 10/01/2011 Medications No known medications Active Problems No known active problems Immunizations Name Administration Dates Next Due MMR [...] Comments Blood Pressure 122/82 10/01/2011 8:57 AM CATCHER FILTER TIP Pulse 82 10/01/2011 8:57 AM CATCHER FILTER TIP Temperature - - Respiratory Rate - - Oxygen Saturation - - Inhaled Oxygen Concentration - - Weight 73.6 kg (162 lb 3.2 oz) 10/01/2011 8:57 A M CATCHER FILTER TIP Height 176.5 cm (5' 9.5) 10/01/2011 8:57 AM CATCHER FILTER TIP Body Mass Index 23.61 10/01/2011 8:57 AM CATCHER FILTER TIP Plan of Treatment Health Maintenance Due Date [...] Procedure Name Priority Date/Time Associated Diagnosis Comments LIPID PANEL W REFLEX MEASURED LDL Routine 10/01/2011 10:00 AM CATCHER FILTER TIP Screening cholesterol level from Last 3 Months or Most Recently Relevant to Health Maintenance Results * (ABNORMAL) LIPID PANEL W REFLEX MEASURED LDL (10/01/2011 10:00 AM CATCHER FILTER TIP) CHOLESTEROL,TOTAL 143 110 - 199 mg/dL [facility] TRIGLYCERIDES 139 <150 mg/dL [facility] HDL CHOLESTEROL 36(L) >40 mg/dL [facility] CHOL/HDL RATIO 3.[address] [facility] LDL CHOLESTEROL 79 <131 mg/dL [facility] PATIENT STATUS Fasting [facility] Blood specimen (specimen) BLOOD SPECIMEN / Unknown 10/01/2011 10:00 AM CATCHER FILTER TIP 10/01/2011 9:51 AM CATCHER FILTER TIP Kristy Kingsley MD CHEMISTRY [facility] [address] [place], [place] [id number] from Last 3 Months or Most Recently Relevant to Health Maintenance Care Teams Manager Of Health Relationship Specialty Start Date End Date Pcp, No . PCP - General 05/01/23
--- OUTSIDE RECORDS SUMMARY | 2024-05-07 13:00 | XMS_ITS | Clinical Summary ---
Author Organization [facility] Address [address] [place] [address] Care Team Providers Care Mechanical Design Technician Name Role Phone Unavailable Primary Care Provider Unavailabl e Source Comments Patient records contain information from all sites at [facility]. For routine questions regarding patient records, call [phone] during business hours, M-F 8:00 AM - 5:00 PM Central Time. Record requests for emergency care only can be directed to [phone] at any time.[facility] Allergies Active Allergy Reactions Criticality Noted Date [...] from 10/16/2023:Stage I(Marginal zone lymphoma) - Unsigned Family History Medical History Relation Name Comments [...] drink = 0.6 oz pur e alcohol) [facility] Utilities Answer Date Recorded In the [...] your living situation today? I have a [facility] place to live 01/05/2024 Sex and [...] 2) 1984 Depression Screening (Annual PHQ-2) 10/21/2023 Influenza Vaccine (#1) 2024 , 08/13/2022, 07/11/2021, Additional history exists DTaP,Tdap,and Td Vaccines (2 - Td or Tdap) 07/22/2028 07/22/2018, 09/04/2005 Hepatitis B Vaccines Completed 03/06/2006, 10/04/2005, 09/04/2005 COVID-19 Vaccine Completed 08/05/2023, 09/2022, 08/21/2021, Additional history exists HPV Vaccines Aged Out No longer eligi ble based on patient's age to complete this topic
--- OUTSIDE RECORDS SUMMARY | 2024-05-07 13:01 | XMS_ITS | Clinical Summary ---
Author Organization [facility] Address [address], [place] [address] Care Team Providers Care Lift Mechanic Name Role Phone Unavailable Primary Care Provider [...] for each transition of care or referral. [email or web address] Allergies Active Allergy Reactions Criticality Noted Date [...] Zoster/Shingles (1 of 2) 2016 COVID-19 Vaccine (2 - season) 2023 01/19/2021 Influenza (#1) 2024 07/04/2020, 07/22, 07/22/2018, Additional history exists DTaP/Tdap/Td [...]
--- NOTE | 2024-05-07 13:30 | PE_ITS ---
[facility] [address] [facility] [address] Phone:?[phone] Fax:?[phone] Referring Physician Information: Danielle Sanchez M.D. [address] [facility] [address] Phone:?[phone] Fax:?[phone] Patient:Gabe Esposito.O.B:?1965 Sex:?Male Phone:?[phone] [facility] MRN:?[id number] Exam Date:?05/07/2024 EXAM: PET/CT EYES TO THIGHS, CANCER RESTAGING CLINICAL INFORMATION: Lymphoma, restaging. TECHNICAL INFORMATION: Helical acquisition of data was obtained from the orbits to the upper thighs with reconstruction of 3.75 mm thick images at 3.[address] data was used for attenuation correction. PET scanning was performed through the same anatomic range 60 minutes following administration of 12.82 mCi of 18-FDG delivered intravenously. The patient's glucose at the time of the injection was 90 mg/dL. PET, CT and PET/CT fusion images are interpreted using a computer viewing workstation. PET, CT and PET/CT fusion images were archived and saved in the patient's permanent medical record. COMPARISON: PET-CT from 11/06/2023. INTERPRETATION: Head and Neck: There are no abnormal hypermetabolic foci within the head or neck. There is physiologic uptake in the intracranial soft tissues. Chest: There are no abnormal hypermetabolic foci within the chest. Background mediastinal blood pool uptake has a maximum SUV of 2.49. No lung nodules or masses detected on this free-breathing exam. No lymphadenopathy detected. Abdomen and Pelvis: There are no abnormal hypermetabolic foci within the abdomen or pelvis. Background hepatic parenchymal uptake has a maximum SUV of 2.76. There is physiologic excretion of radiotracer in the urine and bowel. No abdominopelvic lymphadenopathy size, morphology, or metabolic rate. Left inguinal resection site has a stable and expected appearance. Negative for splenomegaly. Skeleton, Musculature, and Integument: No abnormal hypermetabolic foci within the skeleton. No lv osteoblastic or osteolytic disease. CONCLUSION: No abnormal FDG uptake to indicate active malignancy. Kimberly 1. Electronically signed on 05/08/2024 2:25:00 PM by Erlin Cuevas M.D.
== END 2024-05-07 12:58 | disposition home or self-care (01) ==
LOC: RAD 12:58
PROVIDERS: PCP Nurse Practitioner Family; Visit Provider Internal Medicine Hematology & Oncology
DX: C85.10 Unspecified B-cell lymphoma, unspecified site (principal)
CPT/HCPCS: 78815; A9552

== ENCOUNTER 2024-05-28 09:33 | Outpatient (CLI) | payer OTHER, SELFPAY ==
--- OUTSIDE RECORDS SUMMARY | 2024-05-28 09:50 | XMS_ITS ---
Author Organization [facility] Address [address] [place] [address] Care Team Providers Care Financial Aid Administrator Name Role Phone Unavailable Primary Care Provider Unavailabl e Active Problems Problem Noted Date Diagnosed Date Marginal Zone Lymphoma Jona 12/10/2023 Cancer Staging:Clinical stage from 10/16/2023:Stage I(Marginal zone lymphoma) - Unsigned Current Oncology Plans No current plan information found. Past Plans No past plan information found. Radiation Treatments * Plan Last Treated On Elapsed Days Fractions Treated Prescribed Fraction Dose Prescribed Total Dose [id number] 01/21/2024 15 12 of 12 200 cGy 2,400 cG y Reference Point Last Treated On Elapsed Days Session Dose Total Dose [id number] 01/21/2024 15 200 cGy 2,400 cGy
--- OUTSIDE RECORDS SUMMARY | 2024-05-28 09:50 | XMS_ITS | Referral Summary ---
Author Organization [facility] Address [address] [place] [address] Care Team Providers Care Liturgical Music Director Name Role Phone Unavailable Primary Care Provider Unavailabl e Source Comments Patient records contain information from all sites at [facility]. For routine questions regarding patient records, call [phone] during business hours, M-F 8:00 AM - 5:00 PM Central Time. Record requests for emergency care only can be directed to [phone] at any time.[facility] Allergies Active Allergy Reactions Criticality Noted [...] drink = 0.6 oz pur e alcohol) [facility] Utilities Answer Date Recorded In the past 12 months has e [employer], gas, oil, or water company threatened to [...] your living situation today? I have a [facility] place to live 01/05/2024 Sex and [...] Procedure Name Priority Date/Time Associated Diagnosis Comments OUTSIDE NM PET Routine 05/07/2024 2:10 PM CDT from Last 3 Months Results * PET skull to mid thigh-Outside NM Pet (05/07/2024 2:10 PM CDT) 05/07/2024 2:08 PM CDT Narrative IIMS - 05/07/2024 4:58 PM CDT This order has been created and auto-finalized to support the import of outside images. If available, original interpretation can be found on the Media Tab in Chart Review, in Document Viewer, as an image in QREADS or as an Addendum. If a re-interpretation or overread is required please follow defined workflow.?? Provider Not In System IMG NM PROCEDURES IIMS NA from Last 3 Months
--- OUTSIDE RECORDS SUMMARY | 2024-05-28 09:50 | XMS_ITS | Clinical Summary ---
Author Organization [facility] Address [address], [place] [address] Care Team Providers Care Support Services Manager Name Role Phone Unavailable Primary Care [...] for each transition of care or referral. [facility] Allergies Active Allergy Reactions Criticality Noted Date [...]
--- OUTSIDE RECORDS SUMMARY | 2024-05-28 09:50 | XMS_ITS | Clinical Summary ---
Author Organization [facility] Address [address] [place] [address] Care Team Providers Care Recreational Resort Manager Name Role Phone Unavailable Primary Care Provider Unavailabl e Source Comments Patient records contain information from all sites at [facility]. For routine questions regarding patient records, call [phone] during business hours, M-F 8:00 AM - 5:00 PM Central Time. Record requests for emergency care only can be directed to [phone] at any time.[facility] Allergies Active Allergy Reactions Criticality [...] 0.6 oz pur e alcohol) [facility] Utilities Answer Date Recorded In the [...] your living situation today? I have a [facility] place to live 01/05/2024 Sex and Gender [...]
--- OUTSIDE RECORDS SUMMARY | 2024-05-28 09:50 | XMS_ITS | Clinical Summary ---
Author Organization [facility] Address [place], [place] [address] Care Team Providers Care Mri Tech Name Role Phone Pcp, No Primary Care [...] Comments Blood Pressure 122/82 10/01/2011 8:57 AM HEAVY LINE TECHNICIAN Pulse 82 10/01/2011 8:57 AM HEAVY LINE TECHNICIAN Temperature - - Respiratory Rate - - Oxygen Saturation - - Inhaled Oxygen Concentration - - Weight 73.6 kg (162 lb 3.2 oz) 10/01/2011 8:57 A M HEAVY LINE TECHNICIAN Height 176.5 cm (5' 9.5) 10/01/2011 8:57 AM HEAVY LINE TECHNICIAN Body Mass Index 23.61 10/01/2011 8:57 AM HEAVY LINE TECHNICIAN Plan of Treatment Health Maintenance Due Date [...] REFLEX MEASURED LDL Routine 10/01/2011 10:00 AM HEAVY LINE TECHNICIAN Screening cholesterol level from Last 3 Months or Most Recently Relevant to Health Maintenance Results * (ABNORMAL) LIPID PANEL W REFLEX MEASURED LDL (10/01/2011 10:00 AM HEAVY LINE TECHNICIAN) CHOLESTEROL,TOTAL 143 110 - 199 mg/dL [facility] TRIGLYCERIDES 139 <150 mg/dL [facility] HDL CHOLESTEROL 36(L) >40 mg/dL [facility] CHOL/HDL RATIO 3.97 <4.51 [facility] LDL CHOLESTEROL 79 <131 mg/dL [facility] PATIENT STATUS Fasting [facility] Blood specimen (specimen) BLOOD SPECIMEN / Unknown 10/01/2011 10:00 AM HEAVY LINE TECHNICIAN 10/01/2011 9:51 AM HEAVY LINE TECHNICIAN Kristy Kingsley MD CHEMISTRY [facility] [address] [place], [place] [id number] from Last 3 Months or Most Recently Relevant to Health Maintenance Care Teams Mri Tech Relationship Specialty Start Date End Date Pcp, No . PCP - General 05/01/23
--- OUTSIDE RECORDS SUMMARY | 2024-05-28 09:50 | XMS_ITS ---
Author Organization [facility] Address [address] [place] [address] Care Team Providers Care Ceramics Engineer Name Role Phone Unavailable Unavailable Unavailable Surgery Details Not on file Complications Check Surgery Details section. Procedure Estimated Blood Loss Check Surgery Details section. Procedure Findings Check Surgery Details section. Procedure Specimens Taken Check Surgery Details section.
== END 2024-05-28 09:34 | disposition home or self-care (01) ==
PROVIDERS: PCP Internal Medicine; Visit Provider Internal Medicine
DX: Z13.220 Encounter for screening for lipoid disorders (principal); Z12.5 Encounter for screening for malignant neoplasm of prostate
CPT/HCPCS: 80061; G0103

== ENCOUNTER 2024-06-15 10:42 | Outpatient (CLI) | payer OTHER, SELFPAY ==
--- OUTSIDE RECORDS SUMMARY | 2024-06-15 10:44 | XMS_ITS | Referral Summary ---
Author Organization [facility] Address [address] [place] [address] Care Team Providers Care Grievance Manager Name Role Phone Unavailable Primary Care Provider Unavailabl e Source Comments Patient records contain information from all sites at [facility]. For routine questions regarding patient records, call [phone] during business hours, M-F 8:00 AM - 5:00 PM Central Time. Record requests for emergency care only can be directed to [phone] at any time.[facility] Allergies Active Allergy Reactions Criticality Noted Date [...] drink = 0.6 oz pur e alcohol) [facility] Utilities Answer Date Recorded In the past 12 months has e [employer], gas, oil, or water company threatened to [...] your living situation today? I have a [facility] place to live 01/05/2024 Sex [...]
--- OUTSIDE RECORDS SUMMARY | 2024-06-15 10:44 | XMS_ITS | Clinical Summary ---
Author Organization [facility] Address [address] [place] [address] Care Team Providers Care Vice President Commercial Bank Name Role Phone Unavailable Primary Care Provider Unavailabl e Source Comments Patient records contain information from all sites at [facility]. For routine questions regarding patient records, call [phone] during business hours, M-F 8:00 AM - 5:00 PM Central Time. Record requests for emergency care only can be directed to [phone] at any time.[facility] Allergies Active Allergy Reactions Criticality Noted Date [...] drink = 0.6 oz pur e alcohol) [facility] Utilities Answer Date Recorded In the [...] your living situation today? I have a [facility] place to live 01/05/2024 Sex and [...]
--- OUTSIDE RECORDS SUMMARY | 2024-06-15 10:44 | XMS_ITS | Clinical Summary ---
Author Organization [facility] Address [place], [place] [address] Care Team Providers Care Oncology Social Work Name Role Phone Pcp, No Primary Care [...] Comments Blood Pressure 122/82 10/01/2011 8:57 AM BRIM POUNCER Pulse 82 10/01/2011 8:57 AM BRIM POUNCER Temperature - - Respiratory Rate - - Oxygen Saturation - - Inhaled Oxygen Concentration - - Weight 73.6 kg (162 lb 3.2 oz) 10/01/2011 8:57 A M BRIM POUNCER Height 176.5 cm (5' 9.5) 10/01/2011 8:57 AM BRIM POUNCER Body Mass Index 23.61 10/01/2011 8:57 AM BRIM POUNCER Plan of Treatment Health Maintenance Due Date [...] REFLEX MEASURED LDL Routine 10/01/2011 10:00 AM BRIM POUNCER Screening cholesterol level from Last 3 Months or Most Recently Relevant to Health Maintenance Results * (ABNORMAL) LIPID PANEL W REFLEX MEASURED LDL (10/01/2011 10:00 AM BRIM POUNCER) CHOLESTEROL,TOTAL 143 110 - 199 mg/dL [facility] TRIGLYCERIDES 139 <150 mg/dL [facility] HDL CHOLESTEROL 36(L) >40 mg/dL [facility] CHOL/HDL RATIO 3.97 <4.51 [facility] LDL CHOLESTEROL 79 <131 mg/dL [facility] PATIENT STATUS Fasting [facility] Blood specimen (specimen) BLOOD SPECIMEN / Unknown 10/01/2011 10:00 AM BRIM POUNCER 10/01/2011 9:51 AM BRIM POUNCER Kristy Kingsley MD CHEMISTRY [facility] [address] [place], [place] [id number] from Last 3 Months or Most Recently Relevant to Health Maintenance Care Teams Oncology Social Work Relationship Specialty Start Date End Date Pcp, No . PCP - General 05/01/23
--- OUTSIDE RECORDS SUMMARY | 2024-06-15 10:44 | XMS_ITS | Clinical Summary ---
Author Organization [facility] Address [address], [place] [address] Care Team Providers Care Electrician Powerhouse Name Role Phone Unavailable Primary Care Provider [...] for each transition of care or referral. [facility] Allergies Active Allergy Reactions Criticality Noted Date [...] 1965 Hep C Screening (Preventive Services) 1965 MTM Covered 1966 PSA Screening Discussion 1966 HIV Screening [...]
--- OUTSIDE RECORDS SUMMARY | 2024-06-15 10:44 | XMS_ITS ---
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 Past Plans No past plan information found. Radiation Treatments * Plan Last Treated On Elapsed Days Fractions Treated Prescribed Fraction Dose Prescribed Total Dose [id number] 01/21/2024 15 12 of 12 200 cGy 2,400 cG y Reference Point Last Treated On Elapsed Days Session Dose Total Dose [id number] 01/21/2024 15 200 cGy 2,400 cGy
--- OUTSIDE RECORDS SUMMARY | 2024-06-15 10:44 | XMS_ITS ---
Author Organization [facility] Address [address] [place] [address] Care Team Providers Care Nurse Transitional Name Role Phone Unavailable Unavailable Unavailable Surgery Details Not on file Complications Check Surgery Details section. Procedure Estimated Blood Loss Check Surgery Details section. Procedure Findings Check Surgery Details section. Procedure Specimens Taken Check Surgery Details section.
--- NOTE | 2024-06-15 11:25 | W.ANESCHARGE ---
Anesthesia Charges Start Date/Time Anesthesia Start Date: 06/15/24 Anesthesia Start Time: 11:17 Stop Date/Time Anesthesia Stop Date: 06/15/24 Anesthesia Stop Time: 11:44
--- NOTE | 2024-06-15 11:47 | W.ANESCHARGE ---
Anesthesia Charges Start Date/Time Anesthesia Start Date: 06/15/24 Anesthesia Start Time: 11:17 Stop Date/Time Anesthesia Stop Date: 06/15/24 Anesthesia Stop Time: 11:44
== END 2024-06-15 10:43 | disposition home or self-care (01) ==
LOC: OP CLINIC 10:43
PROVIDERS: PCP Internal Medicine; Visit Provider Surgery
DX: Z12.11 Encounter for screening for malignant neoplasm of colon (principal); K57.30 Diverticulosis of large intestine without perforation or abscess without bleeding
CPT/HCPCS: 00811; 00812; 45378; J2704

== ENCOUNTER 2024-11-05 15:00 | Outpatient (RCR) | payer BC, OTHER, SELFPAY ==
[2024-05-25 09:53] LABS: Albumin* 4.5 g/dL (3.3-5.0); Chloride* 105 mmol/L (96-114)
[2024-05-25 09:54] LABS: Potassium* 4.6 mmol/L (3.6-5.1); Sodium* 138 mmol/L (135-149)
[2024-05-25 09:56] LABS: Alkaline Phosphatase* 90 U/L (40-150); Anion Gap 5 mEq/L (7-15); Aspartate Amino Transferase* 29 U/L (12-35); Bilirubin Direct* 0.2 mg/dL (0.0-0.5); Bilirubin Total* 1.2 mg/dL (0.1-1.5); Blood Urea Nitrogen* 23 mg/dL (7-30); Carbon Dioxide* 28 mmol/L (20-32); Creatinine* 1.1 mg/dL (0.5-1.5); Estimated Glomerular Filt Rate 78 ml/min; Total Protein* 7.2 g/dL (6.0-8.3)
[2024-05-25 09:57] LABS: Alanine Aminotransferase* 25 U/L (4-50); Calcium* 9.6 mg/dL (8.4-10.6); Glucose* 93 mg/dL (60-115)
--- NOTE | 2024-05-25 11:30 | ONC.NURNOTE ---
lab results wnl and called to pt. pt will make an follow up apt with labs in 3 months per md note.
--- NOTE | 2024-07-07 08:27 | ONC.NURNOTE ---
Pt called inquiring if he needed a PET scan prior to his 08/12/[address] Sanchez pt does not need a PET scan prior to this appt. A PET is needed every 6 months. Ticket Sales Supervisor called pt with update. Pt verbalized understanding of plan of care.
[2024-08-11 08:48] LABS: Basophils Absolute Auto 0.04 K/uL (0.00-0.30); Basophils Percent Auto 0.4 % (0.0-3.0); Eosinophils Absolute Auto 0.18 K/uL (0.00-0.50); Eosinophils Percent Auto 1.9 % (0.0-7.0); Hematocrit 46.7 % (37.0-53.0); Hemoglobin* 15.5 gm/dL (13.5-17.5); Immature Granulocytes Abs Auto 0.02 K/uL (0.00-0.30); Immature Granulocytes Pct Auto 0.2 %; Lymphocytes Percent Auto 10.2 % (20-44); Mean Corpuscular HGB Conc 33 gm/dL (32-36); Mean Corpuscular Hemoglobin 28 pg (26-34); Mean Corpuscular Volume 84 fL (80-100); Monocytes Percent Auto 9.1 % (0.0-11.0); Neutrophils Percent Auto 78.2 % (42.0-72.0); Platelet Count* 217 K/uL (140-440); RDW Coefficient of Variation % 13.1 % (11.5-15.5); Red Blood Count 5.54 m/uL (4.30-5.90); Slide Review Reflex No; White Blood Count* 9.24 K/uL (4.50-11.00)
[2024-08-11 09:01] LABS: Albumin* 4.5 g/dL (3.3-5.0)
[2024-08-11 09:02] LABS: Chloride* 103 mmol/L (96-114); Potassium* 4.1 mmol/L (3.6-5.1); Sodium* 136 mmol/L (135-149)
[2024-08-11 09:04] LABS: Anion Gap 10 mEq/L (7-15); Aspartate Amino Transferase* 27 U/L (12-35); Bilirubin Total* 1.1 mg/dL (0.1-1.5); Carbon Dioxide* 23 mmol/L (20-32); Creatinine* 1.1 mg/dL (0.5-1.5); Estimated Glomerular Filt Rate 78 ml/min; Total Protein* 7.1 g/dL (6.0-8.3)
[2024-08-11 09:05] LABS: Alanine Aminotransferase* 26 U/L (4-50); Alkaline Phosphatase* 98 U/L (40-150); Blood Urea Nitrogen* 20 mg/dL (7-30); Calcium* 9.6 mg/dL (8.4-10.6); Glucose* 121 mg/dL (60-115); Lactate Dehydrogenase* 190 U/L (120-246)
[2024-11-05 15:41] LABS: Basophils Absolute Auto 0.05 K/uL (0.00-0.30); Basophils Percent Auto 0.7 % (0.0-3.0); Eosinophils Absolute Auto 0.19 K/uL (0.00-0.50); Eosinophils Percent Auto 2.7 % (0.0-7.0); Hemoglobin* 15.6 gm/dL (13.5-17.5); Immature Granulocytes Abs Auto 0.01 K/uL (0.00-0.30); Immature Granulocytes Pct Auto 0.1 %; Lymphocytes Absolute Auto 1.59 K/uL (0.90-2.90); Lymphocytes Percent Auto 22.3 % (20-44); Mean Corpuscular HGB Conc 33 gm/dL (32-36); Mean Corpuscular Hemoglobin 28 pg (26-34); Mean Corpuscular Volume 84 fL (80-100); Monocytes Percent Auto 8.5 % (0.0-11.0); Neutrophils Absolute Auto 4.69 K/uL (1.7-7.0); Neutrophils Percent Auto 65.7 % (42.0-72.0); Platelet Count* 221 K/uL (140-440); RDW Coefficient of Variation % 13.2 % (11.5-15.5); Red Blood Count 5.58 m/uL (4.30-5.90); White Blood Count* 7.14 K/uL (4.50-11.00)
[2024-11-05 15:52] LABS: Albumin* 4.6 g/dL (3.3-5.0); Chloride* 101 mmol/L (96-114)
[2024-11-05 15:53] LABS: Potassium* 4.2 mmol/L (3.6-5.1); Sodium* 136 mmol/L (135-149)
[2024-11-05 15:55] LABS: Alkaline Phosphatase* 91 U/L (40-150); Anion Gap 9 mEq/L (7-15); Aspartate Amino Transferase* 31 U/L (12-35); Bilirubin Total* 1.7 mg/dL (0.1-1.5); Blood Urea Nitrogen* 19 mg/dL (7-30); Carbon Dioxide* 26 mmol/L (20-32); Est. Creatinine Clearance* 75.28; Estimated Glomerular Filt Rate 87 ml/min; Total Protein* 7.2 g/dL (6.0-8.3)
[2024-11-05 15:56] LABS: Alanine Aminotransferase* 28 U/L (4-50); Calcium* 9.4 mg/dL (8.4-10.6); Glucose* 86 mg/dL (60-115)
[2024-11-05 15:57] LABS: Slide Review Reflex No
== END 2024-11-07 23:59 | disposition home or self-care (01) ==
LOC: CCIC 15:00
PROVIDERS: PCP Nurse Practitioner Family; Referring Provider Nurse Practitioner Family; Visit Provider Internal Medicine Hematology & Oncology
DX: C85.10 Unspecified B-cell lymphoma, unspecified site (principal)
CPT/HCPCS: 36415; 80053; 82248; 83615; 85025; 99214; G0463

== ENCOUNTER 2024-11-05 15:07 | Outpatient (CLI) | payer BC, SELFPAY ==
--- NOTE | 2024-11-05 15:30 | PE_ITS ---
[facility] [address] [facility] [address] Phone:?[phone] Fax:?[phone] Referring Physician Information: Danielle Sanchez M.D. [address] [facility] [address] Phone:?[phone] Fax:?[phone] Patient:Gabe Esposito.O.B:?1965 Sex:?Male Phone:?[phone] [facility] MRN:?[id number] Exam Date:?11/05/2024 EXAM: PET/CT SCAN MID-ORBITS TO PROXIMAL THIGHS CLINICAL INFORMATION: Lymphoma; restaging TECHNICAL INFORMATION: Spiral acquisition of data was obtained from the mid orbits to the proximal thighs with reconstruction of 3.75 mm thick images at 3.[address] data was used for attenuation correction. PET scanning was performed through the same anatomic range following administration of 12.15 mCi of 18-FDG delivered intravenously. The patient's glucose at the time of the injection was 80 mg/dL. PET, CT and PET/CT fusion images are interpreted using a computer viewing workstation. SUV max liver 2.36; BMI normalization method. INTERPRETATION: Head and Neck: Physiologic intracranial uptake. No pathologic adenopathy. Chest: No lung nodule or infiltrate. No bronchiectasis, emphysema or fibrosis. No pathologic hilar, mediastinal or axillary adenopathy. Abdomen, Pelvis and Proximal Thighs: No liver lesion. No bile duct dilatation. Physiologic GI/ uptake. No evidence of pathologic adenopathy. CONCLUSION: 1. Stable exam. No disease specific FDG uptake. Kimberly 1. Electronically signed on 11/07/2024 8:44:00 AM by Saman Machado M.D.
== END 2024-11-05 15:08 | disposition home or self-care (01) ==
PROVIDERS: PCP Internal Medicine; Visit Provider Internal Medicine Hematology & Oncology
DX: C85.10 Unspecified B-cell lymphoma, unspecified site (principal)
CPT/HCPCS: 78815; A9552

== ENCOUNTER 2025-05-06 13:55 | Outpatient (CLI) | payer BC, SELFPAY ==
--- NOTE | 2025-05-06 14:30 | CRLHL7_ITS ---
For Patients: As a result of the Century Cures Act, medical imaging exams and procedure reports are released immediately into your electronic medical record. You may view this report before your referring provider. If you have questions, please contact your health care provider. EXAM: FDG PET-CT Skull Base to Thighs CLINICAL INFORMATION: 60-year-old man with history of lymphoma. Restaging TECHNIQUE: Radiopharmaceutical: 18F-fluorodeoxyglucose (18F-FDG) Dose: 13.66 milliCurie. Blood glucose: 98 mg/dL. Image acquisition: At approximately 60 minutes following IV tracer administration via a left antecubital vein, positron emission tomography was performed from the skull base through the mid thigh. Non-contrast low-dose helical CT imaging was performed over the same range without breath-hold for attenuation correction of PET images and anatomic correlation; it is neither sufficient, nor should it be substituted for diagnostic purposes. COMPARISON: FDG PET-CT 11/05/2024 FINDINGS: Mediastinal blood pool FDG uptake: SUVMax 2.7 (Image 66) Liver background parenchymal FDG uptake: SUVMax 3.3 (Image 101) PET Findings: No abnormal FDG avid lymphadenopathy. No abnormal FDG uptake in the visualized skeleton. Tracer uptake elsewhere is physiologic. Non-PET findings: Subcentimeter pulmonary nodules, for example a 0.4 cm nodule in the right middle lobe (image 82), too small to characterize. Coronary artery calcifications. Atherosclerotic calcifications of the thoracic and abdominal aorta. Left hepatic cyst. Bilateral renal cysts. Multilevel degenerative changes in the spine. Surgical clips in the left inguinal region. IMPRESSION: 1. No evidence of metabolically active lymphoma. Deauville 1. Deauville 5-point Scale (most intense uptake in a site of initial disease): 1. No uptake; 2. Uptake less than or equal to mediastinal blood pool; 3. Uptake < mediastinal blood pool but less than or equal to liver; 4. Uptake moderately higher than liver; 5. Uptake markedly higher than liver and/or new lesions; X. New areas of uptake unlikely to be related to lymphoma. Dictated by Melvin Nicolas MD @ 05/07/2025 9:51:47 PM (Electronically Signed)
== END 2025-05-06 13:56 | disposition home or self-care (01) ==
LOC: RAD 13:57
PROVIDERS: PCP Internal Medicine; Visit Provider Internal Medicine Hematology & Oncology
DX: C85.10 Unspecified B-cell lymphoma, unspecified site (principal)
CPT/HCPCS: 78815; A9552

== ENCOUNTER 2025-05-06 14:00 | Outpatient (RCR) | payer BC, SELFPAY ==
[2025-02-09 08:34] LABS: Albumin* 4.3 g/dL (3.3-5.0); Chloride* 104 mmol/L (96-114)
[2025-02-09 08:35] LABS: Hematocrit 47.5 % (37.0-53.0); Hemoglobin* 15.9 gm/dL (13.5-17.5); Immature Granulocytes Abs Auto 0.02 K/uL (0.00-0.30); Immature Granulocytes Pct Auto 0.3 %; Lymphocytes Absolute Auto 1.89 K/uL (0.90-2.90); Mean Corpuscular HGB Conc 34 gm/dL (32-36); Mean Corpuscular Hemoglobin 28 pg (26-34); Mean Corpuscular Volume 84 fL (80-100); Potassium* 4.3 mmol/L (3.6-5.1); RDW Coefficient of Variation % 12.9 % (11.5-15.5); Red Blood Count 5.63 m/uL (4.30-5.90); Sodium* 138 mmol/L (135-149); White Blood Count* 7.33 K/uL (4.50-11.00)
[2025-02-09 08:37] LABS: Alanine Aminotransferase* 27 U/L (4-50); Aspartate Amino Transferase* 30 U/L (12-35); Blood Urea Nitrogen* 20 mg/dL (7-30); Creatinine* 1.0 mg/dL (0.5-1.5); Est. Creatinine Clearance* 77.90; Estimated Glomerular Filt Rate 87 ml/min
[2025-02-09 08:38] LABS: Alkaline Phosphatase* 95 U/L (40-150); Anion Gap 10 mEq/L (7-15); Bilirubin Total* 1.0 mg/dL (0.1-1.5); Calcium* 9.2 mg/dL (8.4-10.6); Carbon Dioxide* 24 mmol/L (20-32); Glucose* 111 mg/dL (60-115); Total Protein* 6.9 g/dL (6.0-8.3)
[2025-02-09 08:43] LABS: Slide Review Reflex No
[2025-05-06 14:37] LABS: Hematocrit 48.7 % (37.0-53.0); Hemoglobin* 16.3 gm/dL (13.5-17.5); Immature Granulocytes Abs Auto 0.02 K/uL (0.00-0.30); Immature Granulocytes Pct Auto 0.2 %; Mean Corpuscular HGB Conc 34 gm/dL (32-36); Mean Corpuscular Hemoglobin 28 pg (26-34); Mean Corpuscular Volume 84 fL (80-100); RDW Coefficient of Variation % 13.0 % (11.5-15.5); Red Blood Count 5.79 m/uL (4.30-5.90); White Blood Count* 8.01 K/uL (4.50-11.00)
[2025-05-06 14:38] LABS: Lymphocytes Absolute Auto 0.80 K/uL (0.90-2.90); Slide Review Reflex No
[2025-05-06 14:50] LABS: Albumin* 4.7 g/dL (3.3-5.0); Chloride* 100 mmol/L (96-114)
[2025-05-06 14:51] LABS: Potassium* 4.8 mmol/L (3.6-5.1); Sodium* 136 mmol/L (135-149)
[2025-05-06 14:53] LABS: Alanine Aminotransferase* 28 U/L (4-50); Anion Gap 9 mEq/L (7-15); Aspartate Amino Transferase* 34 U/L (12-35); Blood Urea Nitrogen* 19 mg/dL (7-30); Carbon Dioxide* 27 mmol/L (20-32); Creatinine* 1.2 mg/dL (0.5-1.5); Est. Creatinine Clearance* 61.97; Estimated Glomerular Filt Rate 70 ml/min; Total Protein* 7.6 g/dL (6.0-8.3)
[2025-05-06 14:54] LABS: Alkaline Phosphatase* 96 U/L (40-150); Bilirubin Total* 1.9 mg/dL (0.1-1.5); Calcium* 9.7 mg/dL (8.4-10.6); Glucose* 94 mg/dL (60-115)
--- NOTE | 2025-05-10 08:37 | ONC.NURNOTE ---
Pt called today to report that he tested positive for COVID over the weekend. He was at [facility] for labs followed by a PET scan on , 05/06. Symptoms started the next day. Pt inquired about 1) rescheduling his appointment with Beronica Bella PA-C this and 2) how having COVID may have impacted his PET scan and lab work. Discussed with [facility] Repairer Screen Crusher and PIO Bella and it was determined that pt's appointment should be delayed a week. This was rescheduled. PIO Bella reviewed the PET scan and gave RN permission to call pt with the report that PET scan looks good. This was also done.
== END 2025-05-10 23:59 | disposition home or self-care (01) ==
LOC: CCIC 14:00
PROVIDERS: Clinical Nurse Specialist; Internal Medicine Hematology & Oncology; PCP Internal Medicine; Referring Provider Nurse Practitioner Family; Visit Provider Physician Assistant
DX: C85.15 Unspecified B-cell lymphoma, lymph nodes of inguinal region and lower limb (principal)
CPT/HCPCS: 36415; 80053; 83615; 85025; 99213; 99214; G0463